=== PATIENT | female | born 1985 | race Caucasian/White ===

== ENCOUNTER 2016-08-27 17:13 | Inpatient (IN) ==
[2016-08-27] MEDS ORDERED: Ondansetron 4 MG/2 ML VIAL IV ONE (18:23)
--- NOTE | 2016-08-27 18:38 | Emergency Department Note ---
Disposition Clinical Impression: Fecal impaction of colon Disposition: Home, Self-Care Condition: Fair Referrals: NO,PCP [Primary Care Provider] - Forms: Work/School Release, ED Satisfaction Letter General Adult HPI - General Chief complaint: ED Abdominal Pain Stated complaint: Constipation Time Seen by Provider: 08/27/16 17:41 Source: patient, family Limitations: no limitations Nursing Notes Reviewed: Yes Vital Signs Reviewed: Yes - History of Present Illness Pain Scale: 10 - Related Data Home Medications Medication Instructions Recorded Confirmed Alprazolam [Xanax 1 MG Tablet] 1 mg PO TID PRN 08/27/16 08/27/16 Sertraline [Zoloft] 50 mg PO DAILY 08/27/16 08/27/16 Allergies Allergy/AdvReac Type Severity Reaction Status Date / Time No Known Allergies Allergy Verified 01/28/16 22:25 Past Medical History - Past Medical History Medical history: Reports: other Psychiatric history: Reports: anxiety, depression SOCK IRONER history: Reports: no SOCK IRONER history - Social History Smoking Status: Current every day smoker Smokeless Tobacco Status: No Alcohol use: Reports: none Drug use: Reports: none Physical Exam - General Limitations: no limitations General appearance: alert, in no apparent distress Course Vital Signs Temperature 98.1 F 08/27/16 17:15 Pulse Rate 109 08/27/16 17:15 Respiratory Rate 18 08/27/16 17:15 Blood Pressure 127/92 08/27/16 17:15 O2 Sat by Pulse Oximetry 97 08/27/16 17:15 Temperature 98.1 F 08/27/16 17:15 Pulse Rate 101 08/27/16 19:41 Respiratory Rate 16 08/27/16 19:41 Blood Pressure 117/94 08/27/16 19:41 O2 Sat by Pulse Oximetry 98 08/27/16 19:41 Oxygen Delivery Oxygen Delivery Room Air Medical Decision Making - MDM Narrative Medical decision making narrative: I examined this patient and my medical decision-making was reviewed with the FRENCH BINDER/PA/Advanced Practice Nurse/Resident Physician. I agree with the documented findings, disposition and treatment plan as described except to the extent set forth below. Patient was evaluated today by Dr. Adames and myself, I agree with her evaluation and management plan, supervised the care of the patient notes today. Patient has a history of megacolon. She will following up with anyone now she has a normal bowel movement over a year. Thinks some diarrhea but also constipated she is also on some urinary symptoms or history of UTI in the past. Nonsurgical abdomen here. 2200 hrs. to patient allowed to urinate so we did a serum which was negative she is back from CT waiting on the read. We also sent her urine down now to determine if she has any infection. Her urine does appear very dark here. Abdomen/Pelvis CT 08/27/16 20:00 IMPRESSION: There is a marked rectosigmoid fecal impaction as above. The wall of the rectum is diffusely thickened with mild perirectal fat stranding. Stercoral colitis must be considered. Air within the endometrial canal of uncertain etiology and significance. Is there history of recent gynecological examination? There are mildly enlarged bilateral inguinal and internal iliac lymph nodes. D/ / Esa De La O MD / Esa De La O MD Interpreting Provider: Esa De La O MD 2200 hrs.: CT is back with the size of this large amount of stool count fingers anyway we can remove this in the ER. She seen Dr. Villarreal in the past. We will call surgery see if we can bring her into the hospital for them to follow. Patient's in agreement. Still waiting on urinalysis. 2300 hrs.: Patient was discussed with on-call surgeon he said admit to hospitalist with surgery consult in. No further orders. Patient's in agreement with plan. 2330: hospitalist accepts for admission - Lab Data Result diagrams: 08/27/16 18:43 08/27/16 18:43 Lab Results 08/27/16 08/27/16 08/27/16 Range/Units 18:43 18:43 18:43 WBC 9.7 (4.3-11.1) K/mcL RBC 3.85 (3.82-4.97) M/mcL Hgb 10.7 L (11.5-15.4) g/dL Hct 32.9 L (35.3-44.9) % MCV 85.5 (83.0-100.0) fL MCH 27.8 L (28.0-33.3) pg MCHC 32.5 (31.6-35.5) g/dL RDW 13.0 (11.5-14.5) % Plt Count 425 H (140-400) K/mcL MPV 8.6 L (9.4-12.4) fL Immature Gran % 0.4 (0-4) % Seg Neutrophils % 73.4 % Lymphocytes % 11.2 % Monocytes % 14.8 % Eosinophils % 0.0 % Basophils % 0.2 % Neutrophils # 7.1 (1.6-8.9) K/mcL Lymphocytes # 1.1 (0.6-4.6) K/mcL Monocytes # 1.4 H (0.0-1.3) K/mcL Eosinophils # 0.0 (0.0-0.6) K/mcL Basophils # 0.0 (0.0-0.2) K/mcL Platelet Estimate Slight increase H (Normal) Sodium 135 L (136-145) mEq/L Potassium 3.4 L (3.5-4.5) mEq/L Chloride 98 (98-109) mEq/L Carbon Dioxide 23 (19-29) mEq/L BUN 8 (7-20) mg/dL Creatinine 0.75 (0.57-1.11) mg/dL Est GFR ( Amer) > 60 (> 60) Est GFR (Non-Af Amer) > 60 (> 60) BUN/Creatinine Ratio 11 (6-26) Glucose 126 H (70-99) mg/dL Calculated Osmolality 280 (280-300) Calcium 9.4 (8.6-10.8) mg/dL Total Bilirubin 0.4 (0.2-1.2) mg/dL AST 22 (5-34) Units/L ALT 8 (0-55) Units/L Alkaline Phosphatase 73 (38-126) Units/L Serum Total Protein 7.2 (6.0-8.3) g/dL Albumin 3.5 (3.5-5.0) g/dL Globulin 3.7 H (2.4-3.5) g/dL Albumin/Globulin Ratio 0.9 L (1.1-2.2) Lipase 4 L (8-78) Units/L Serum , Qual (Negative) Urine Color (Yellow) Urine Clarity (Clear) Urine pH (5.0-8.0) pH Units Ur Specific [place] (1.010-1.025) Urine Protein (Neg-Trace) mg/dL Urine Glucose (UA) (Normal) mg/dL Urine Ketones (Negative) mg/dL Urine Blood (Negative) Urine Nitrite (Negative) Urine Bilirubin (Negative) Urine Urobilinogen (Normal) mg/dL Ur Leukocyte Esterase (Negative) Urine Microscopic RBC (0-3) per hpf Urine Microscopic WBC (0-3) per hpf Ur Squamous Epith Cells (None-Few) per lpf Urine Bacteria (None-Few) per hpf Hyaline Casts (None-Few) per lpf Ur Culture Indicated? (NO) Urine Test (Negative) 08/27/16 08/27/16 08/27/16 Range/Units 18:43 21:57 21:57 WBC (4.3-11.1) K/mcL RBC (3.82-4.97) M/mcL Hgb (11.5-15.4) g/dL Hct (35.3-44.9) % MCV (83.0-100.0) fL MCH (28.0-33.3) pg MCHC (31.6-35.5) g/dL RDW (11.5-14.5) % Plt Count (140-400) K/mcL MPV (9.4-12.4) fL Immature Gran % (0-4) % Seg Neutrophils % % Lymphocytes % % Monocytes % % Eosinophils % % Basophils % % Neutrophils # (1.6-8.9) K/mcL Lymphocytes # (0.6-4.6) K/mcL Monocytes # (0.0-1.3) K/mcL Eosinophils # (0.0-0.6) K/mcL Basophils # (0.0-0.2) K/mcL Platelet Estimate (Normal) Sodium (136-145) mEq/L Potassium (3.5-4.5) mEq/L Chloride (98-109) mEq/L Carbon Dioxide (19-29) mEq/L BUN (7-20) mg/dL Creatinine (0.57-1.11) mg/dL Est GFR ( Amer) (> 60) Est GFR (Non-Af Amer) (> 60) BUN/Creatinine Ratio (6-26) Glucose (70-99) mg/dL Calculated Osmolality (280-300) Calcium (8.6-10.8) mg/dL Total Bilirubin (0.2-1.2) mg/dL AST (5-34) Units/L ALT (0-55) Units/L Alkaline Phosphatase (38-126) Units/L Serum Total Protein (6.0-8.3) g/dL Albumin (3.5-5.0) g/dL Globulin (2.4-3.5) g/dL Albumin/Globulin Ratio (1.1-2.2) Lipase (8-78) Units/L Serum , Qual Negative (Negative) Urine Color Red A (Yellow) Urine Clarity Turbid A (Clear) Urine pH 7.0 (5.0-8.0) pH Units Ur Specific [place] 1.021 (1.010-1.025) Urine Protein 100 H (Neg-Trace) mg/dL Urine Glucose (UA) Normal (Normal) mg/dL Urine Ketones 15 H (Negative) mg/dL Urine Blood Large H (Negative) Urine Nitrite Negative (Negative) Urine Bilirubin Moderate H (Negative) Urine Urobilinogen Normal (Normal) mg/dL Ur Leukocyte Esterase Large H (Negative) Urine Microscopic RBC TNTC H (0-3) per hpf Urine Microscopic WBC TNTC H (0-3) per hpf Ur Squamous Epith Cells Many H (None-Few) per lpf Urine Bacteria Moderate H (None-Few) per hpf Hyaline Casts Few (None-Few) per lpf Ur Culture Indicated? YES A (NO) Urine Test Negative (Negative)
[2016-08-27] MEDS: 0.9 % Sodium Chloride 1,000 ML IVC SCH (18:52)
[2016-08-27 19:08] LABS: Basophils % 0.2 %; Hematocrit 32.9 % (35.3-44.9); Hemoglobin 10.7 g/dL (11.5-15.4); Immature Granulocytes % 0.4 % (0-4); Lymphocytes # 1.1 K/mcL (0.6-4.6); Lymphocytes % 11.2 %; Mean Corpuscular HGB Conc 32.5 g/dL (31.6-35.5); Mean Corpuscular Hemoglobin 27.8 pg (28.0-33.3); Mean Corpuscular Volume 85.5 fL (83.0-100.0); Mean Platelet Volume 8.6 fL (9.4-12.4); Monocytes # 1.4 K/mcL (0.0-1.3); Monocytes % 14.8 %; Neutrophils # 7.1 K/mcL (1.6-8.9); Platelet Count 425 K/mcL (140-400); Red Blood Count 3.85 M/mcL (3.82-4.97); Segmented Neutrophils % 73.4 %
[2016-08-27 19:23] LABS: Alanine Aminotransferase 8 Units/L (0-55); Albumin 3.5 g/dL (3.5-5.0); Albumin/Globulin Ratio 0.9 (1.1-2.2); Alkaline Phosphatase 73 Units/L (38-126); Aspartate Amino Transferase 22 Units/L (5-34); BUN/Creatinine Ratio 11 (6-26); Bilirubin,Total 0.4 mg/dL (0.2-1.2); Blood Urea Nitrogen 8 mg/dL (7-20); Calcium 9.4 mg/dL (8.6-10.8); Carbon Dioxide 23 mEq/L (19-29); Chloride 98 mEq/L (98-109); Globulin 3.7 g/dL (2.4-3.5); Glucose 126 mg/dL (70-99); Osmolality,Calculated 280 (280-300); Potassium 3.4 mEq/L (3.5-4.5); Sodium 135 mEq/L (136-145); Total Protein 7.2 g/dL (6.0-8.3); eGFR For African Americans > 60 (> 60); eGFR For Non-African Americans > 60 (> 60)
[2016-08-27] MEDS ORDERED: Ketorolac 15 MG/ML VIAL IVP ONE (19:23)
--- NOTE | 2016-08-27 21:05 | Emergency Department Note ---
Disposition Clinical Impression: Fecal impaction of colon Disposition: Home, Self-Care Condition: Fair Abdominal Pain HPI - General Chief Complaint: ED Abdominal Pain Stated Complaint: Constipation Time Seen by Provider: 08/27/16 17:41 Source: patient, family Nursing Notes Reviewed: Yes Vital Signs Reviewed: Yes - History of Present Illness HPI Narrative: Patient is a 31-year-old female who presents to [facility] ED with a chief complaint of generalized abdominal pain. States she has not had a normal bowel movement in over a year. States the pain is intolerable at this time and she has nausea, no vomiting. She has a history of megacolon since she was 18 years old. Patient states she has had some diarrhea leaking around what she thinks is a large impaction. Patient has had gas. States she is scared to take MiraLAX She was told before that if it is full in the bottom that they do not want her to take it since it is just pushing it from the top. Patient is not on any current GI medications. States she had to be admitted to surgery in the past where they had to do a disimpaction in the OR. Denies any fevers or chills. No chest pain, shortness of breath. Pt Subjective Complaint: abdominal pain Onset (ago): month(s) Consistency: Worsening Location: diffuse Pain Severity: moderate Pain Scale: 8 Quality: cramping Radiation: none Migration to: no migration Improves with: nothing Worsens with: nothing Associated symptoms: Reports: nausea, constipation. Denies: vomiting, fever, chills Treatments prior to arrival: none - Related Data Home Medications Medication Instructions Recorded Confirmed Alprazolam [Xanax 1 MG Tablet] 1 mg PO TID PRN 08/27/16 08/27/16 Sertraline [Zoloft] 50 mg PO DAILY 08/27/16 08/27/16 Allergies Allergy/AdvReac Type Severity Reaction Status Date / Time No Known Allergies Allergy Verified 01/28/16 22:25 All systems ED: reviewed and negative except as stated. Abdominal Pain PMH - Past Medical History Medical history: Reports: other Female Surgical History: Reports: , other CHECK WEIGHER history: Reports: no CHECK WEIGHER history Psychiatric history: Reports: anxiety, depression - Social History Smoking status: Current every day smoker Alcohol use: Reports: none Drug use: Reports: none Physical Exam - General Limitations: no limitations General appearance: alert, in no apparent distress - Head Head exam: atraumatic, normocephalic, normal inspection - Eye Eye exam: Present: normal appearance, PERRL, EOMI - ENT ENT exam: normal exam, normal oropharynx, mucous membranes moist - Neck Neck exam: Present: normal inspection, full ROM, trachea midline - Chest Chest inspection: Present: normal inspection, symmetric chest wall rise - Respiratory Respiratory exam: Present: normal lung sounds bilaterally - Cardiovascular Cardiovascular exam: Present: regular rate, normal rhythm, normal heart sounds - Abdominal Exam Abdominal exam: Present: soft, tenderness, distention, hyperactive bowel sounds. Absent: guarding, rebound, rigidity Abdominal tenderness: Present: diffuse, moderate - Extremities Exam Extremities exam: Present: normal inspection, full ROM. Absent: tenderness, pedal edema - Back Exam Back exam: Present: normal inspection, full ROM. Absent: tenderness - Neurological Exam Neurological exam: Present: alert, oriented X3 - Psychiatric Psychiatric exam: Present: normal affect, normal mood - Skin Skin exam: Present: warm, dry, intact, normal color Course Course Narrative: Patient seen and examined. Generalized abdominal pain. History of megacolon. Labwork ordered in triage. We will add a CT abdomen and pelvis with IV and oral contrast. - Reevaluation(s) Reevaluation #1: Labwork unremarkable. Urine analysis does show what looks to be a urinary tract infection. Will give [address] shows a rectosigmoid impaction that is 13.2 x 13.3 x 29 cm. I spoke with surgery Dr. Arellano who states to have Dr. Galvez see this patient in consult tomorrow. Paging hospitalist for admission. Time: 23:10 Vital Signs Temperature 98.1 F 08/27/16 17:15 Pulse Rate 109 08/27/16 17:15 Respiratory Rate 18 08/27/16 17:15 Blood Pressure 127/92 08/27/16 17:15 O2 Sat by Pulse Oximetry 97 08/27/16 17:15 Temperature 98.1 F 08/27/16 17:15 Pulse Rate 101 08/27/16 19:41 Respiratory Rate 16 08/27/16 19:41 Blood Pressure 117/94 08/27/16 19:41 O2 Sat by Pulse Oximetry 98 08/27/16 19:41 Oxygen Delivery Oxygen Delivery Room Air Abdominal Pain - MDM Narrative Medical decision making narrative: I examined this patient and my medical decision-making was reviewed with the OPTICAL EFFECTS LAYOUT PERSON/PA/Advanced Practice Nurse/Resident Physician. I agree with the documented findings, disposition and treatment plan as described except to the extent set forth below. Patient was seen by Dr. Zafar and myself, I agree with her evaluation and management plan, supervise care the patient outstay. Patient having lower abdominal pain and constipation. She said a history of megacolon in the past. She had to be surgically disimpacted. She presents today with same symptoms and also burning with urination. Today she shows impaction and also has no signs of obstruction. She also has UTI. We spoke with surgery who is agreeing to have her admitted through the hospitalist service and then were treating her UTI and admission. Patient's in agreement with this plan. - Medical Records Medical records reviewed: Yes I reviewed the patient's medical records. - Lab Data Lab results reviewed: Yes I reviewed the patient's lab results. Result diagrams: 08/27/16 18:43 08/27/16 18:43 Lab Results 08/27/16 08/27/16 08/27/16 Range/Units 18:43 18:43 18:43 WBC 9.7 (4.3-11.1) K/mcL RBC 3.85 (3.82-4.97) M/mcL Hgb 10.7 L (11.5-15.4) g/dL Hct 32.9 L (35.3-44.9) % MCV 85.5 (83.0-100.0) fL MCH 27.8 L (28.0-33.3) pg MCHC 32.5 (31.6-35.5) g/dL RDW 13.0 (11.5-14.5) % Plt Count 425 H (140-400) K/mcL MPV 8.6 L (9.4-12.4) fL Immature Gran % 0.4 (0-4) % Seg Neutrophils % 73.4 % Lymphocytes % 11.2 % Monocytes % 14.8 % Eosinophils % 0.0 % Basophils % 0.2 % Neutrophils # 7.1 (1.6-8.9) K/mcL Lymphocytes # 1.1 (0.6-4.6) K/mcL Monocytes # 1.4 H (0.0-1.3) K/mcL Eosinophils # 0.0 (0.0-0.6) K/mcL Basophils # 0.0 (0.0-0.2) K/mcL Platelet Estimate Slight increase H (Normal) Sodium 135 L (136-145) mEq/L Potassium 3.4 L (3.5-4.5) mEq/L Chloride 98 (98-109) mEq/L Carbon Dioxide 23 (19-29) mEq/L BUN 8 (7-20) mg/dL Creatinine 0.75 (0.57-1.11) mg/dL Est GFR ( Amer) > 60 (> 60) Est GFR (Non-Af Amer) > 60 (> 60) BUN/Creatinine Ratio 11 (6-26) Glucose 126 H (70-99) mg/dL Calculated Osmolality 280 (280-300) Calcium 9.4 (8.6-10.8) mg/dL Total Bilirubin 0.4 (0.2-1.2) mg/dL AST 22 (5-34) Units/L ALT 8 (0-55) Units/L Alkaline Phosphatase 73 (38-126) Units/L Serum Total Protein 7.2 (6.0-8.3) g/dL Albumin 3.5 (3.5-5.0) g/dL Globulin 3.7 H (2.4-3.5) g/dL Albumin/Globulin Ratio 0.9 L (1.1-2.2) Lipase 4 L (8-78) Units/L Serum , Qual (Negative) Urine Color (Yellow) Urine Clarity (Clear) Urine pH (5.0-8.0) pH Units Ur Specific [place] (1.010-1.025) Urine Protein (Neg-Trace) mg/dL Urine Glucose (UA) (Normal) mg/dL Urine Ketones (Negative) mg/dL Urine Blood (Negative) Urine Nitrite (Negative) Urine Bilirubin (Negative) Urine Urobilinogen (Normal) mg/dL Ur Leukocyte Esterase (Negative) Urine Microscopic RBC (0-3) per hpf Urine Microscopic WBC (0-3) per hpf Ur Squamous Epith Cells (None-Few) per lpf Urine Bacteria (None-Few) per hpf Hyaline Casts (None-Few) per lpf Ur Culture Indicated? (NO) Urine Test (Negative) 04/06/17 04/06/17 04/06/17 Range/Units 18:43 21:57 21:57 WBC (4.3-11.1) K/mcL RBC (3.82-4.97) M/mcL Hgb (11.5-15.4) g/dL Hct (35.3-44.9) % MCV (83.0-100.0) fL MCH (28.0-33.3) pg MCHC (31.6-35.5) g/dL RDW (11.5-14.5) % Plt Count (140-400) K/mcL MPV (9.4-12.4) fL Immature Gran % (0-4) % Seg Neutrophils % % Lymphocytes % % Monocytes % % Eosinophils % % Basophils % % Neutrophils # (1.6-8.9) K/mcL Lymphocytes # (0.6-4.6) K/mcL Monocytes # (0.0-1.3) K/mcL Eosinophils # (0.0-0.6) K/mcL Basophils # (0.0-0.2) K/mcL Platelet Estimate (Normal) Sodium (136-145) mEq/L Potassium (3.5-4.5) mEq/L Chloride (98-109) mEq/L Carbon Dioxide (19-29) mEq/L BUN (7-20) mg/dL Creatinine (0.57-1.11) mg/dL Est GFR ( Amer) (> 60) Est GFR (Non-Af Amer) (> 60) BUN/Creatinine Ratio (6-26) Glucose (70-99) mg/dL Calculated Osmolality (280-300) Calcium (8.6-10.8) mg/dL Total Bilirubin (0.2-1.2) mg/dL AST (5-34) Units/L ALT (0-55) Units/L Alkaline Phosphatase (38-126) Units/L Serum Total Protein (6.0-8.3) g/dL Albumin (3.5-5.0) g/dL Globulin (2.4-3.5) g/dL Albumin/Globulin Ratio (1.1-2.2) Lipase (8-78) Units/L Serum , Qual Negative (Negative) Urine Color Red A (Yellow) Urine Clarity Turbid A (Clear) Urine pH 7.0 (5.0-8.0) pH Units Ur Specific [place] 1.021 (1.010-1.025) Urine Protein 100 H (Neg-Trace) mg/dL Urine Glucose (UA) Normal (Normal) mg/dL Urine Ketones 15 H (Negative) mg/dL Urine Blood Large H (Negative) Urine Nitrite Negative (Negative) Urine Bilirubin Moderate H (Negative) Urine Urobilinogen Normal (Normal) mg/dL Ur Leukocyte Esterase Large H (Negative) Urine Microscopic RBC TNTC H (0-3) per hpf Urine Microscopic WBC TNTC H (0-3) per hpf Ur Squamous Epith Cells Many H (None-Few) per lpf Urine Bacteria Moderate H (None-Few) per hpf Hyaline Casts Few (None-Few) per lpf Ur Culture Indicated? YES A (NO) Urine Test Negative (Negative) - Radiology Data Radiology results reviewed: Yes I reviewed the patient's radiology results. Abdomen/Pelvis CT 08/27/16 20:00 IMPRESSION: There is a marked rectosigmoid fecal impaction as above. The wall of the rectum is diffusely thickened with mild perirectal fat stranding. Stercoral colitis must be considered. Air within the endometrial canal of uncertain etiology and significance. Is there history of recent gynecological examination? There are mildly enlarged bilateral inguinal and internal iliac lymph nodes. D/ / Esa De La O MD / Esa De La O MD Interpreting Provider: Esa De La O MD
[2016-08-27 22:06] LABS: Bilirubin,Urine Moderate (Negative); Blood,Urine Large (Negative); Clarity,Urine Turbid (Clear); Color,Urine Red (Yellow); Glucose,Urine (UA) Normal (Normal); Ketones,Urine 15 mg/dL (Negative); Leukocyte Esterase,Urine Large (Negative); Nitrite,Urine Negative (Negative); Protein,Urine 100 mg/dL (Neg-Trace); Specific Gravity,Urine 1.021 (1.010-1.025); Urobilinogen,Urine Normal (Normal)
[2016-08-27 22:08] LABS: Bacteria,Urine Moderate per hpf (None-Few); Hyaline Casts,Urine Few per lpf (None-Few); RBC,Urine TNTC per hpf (0-3); Squamous Epithelial Cell,Urine Many per lpf (None-Few); WBC,Urine TNTC per hpf (0-3)
--- NOTE | 2016-08-28 00:33 | Emergency Department Note ---
Disposition Clinical Impression: Fecal impaction of colon Disposition: Admitted As Inpatient Condition: Fair Referrals: NO,PCP [Primary Care Provider] - Forms: Work/School Release, ED Satisfaction Letter Time of Disposition: 00:32 Abdominal Pain HPI - General Chief Complaint: ED Abdominal Pain Stated Complaint: Constipation Time Seen by Provider: 08/27/16 17:41 Source: patient, family - History of Present Illness Pt Subjective Complaint: abdominal pain Location: diffuse Pain Severity: moderate Pain Scale: 8 Quality: cramping Migration to: no migration Improves with: nothing Worsens with: nothing Associated symptoms: Reports: nausea, constipation. Denies: vomiting, fever, chills - Related Data Home Medications Medication Instructions Recorded Confirmed Alprazolam [Xanax 1 MG Tablet] 1 mg PO TID PRN 08/27/16 08/27/16 Sertraline [Zoloft] 50 mg PO DAILY 08/27/16 08/27/16 Allergies Allergy/AdvReac Type Severity Reaction Status Date / Time No Known Allergies Allergy Verified 01/28/16 22:25 Abdominal Pain PMH - Past Medical History Medical history: Reports: other Female Surgical History: Reports: , other CHILD CARE DEVELOPMENT SPECIALIST history: Reports: no CHILD CARE DEVELOPMENT SPECIALIST history Psychiatric history: Reports: anxiety, depression - Social History Smoking status: Current every day smoker Alcohol use: Reports: none Drug use: Reports: none Physical Exam - General Limitations: no limitations General appearance: alert, in no apparent distress Course - Reevaluation(s) Reevaluation #1: I spoke with surgeon Dr. Arellano who states he will have Dr. Galvez consult on this patient tomorrow. No further antibiotic recommendations at this time. I spoke with hospitalist Dr. Fuentes who has accepted patient for admission. Time: 00:33 Vital Signs Temperature 98.1 F 08/27/16 17:15 Pulse Rate 109 08/27/16 17:15 Respiratory Rate 18 08/27/16 17:15 Blood Pressure 127/92 08/27/16 17:15 O2 Sat by Pulse Oximetry 97 08/27/16 17:15 Temperature 98.1 F 08/27/16 17:15 Pulse Rate 101 08/27/16 19:41 Respiratory Rate 16 08/27/16 19:41 Blood Pressure 117/94 08/27/16 19:41 O2 Sat by Pulse Oximetry 98 08/27/16 19:41 Oxygen Delivery Oxygen Delivery Room Air Abdominal Pain - Lab Data Result diagrams: 08/27/16 18:43 08/27/16 18:43 Lab Results 08/27/16 08/27/16 08/27/16 Range/Units 18:43 18:43 18:43 WBC 9.7 (4.3-11.1) K/mcL RBC 3.85 (3.82-4.97) M/mcL Hgb 10.7 L (11.5-15.4) g/dL Hct 32.9 L (35.3-44.9) % MCV 85.5 (83.0-100.0) fL MCH 27.8 L (28.0-33.3) pg MCHC 32.5 (31.6-35.5) g/dL RDW 13.0 (11.5-14.5) % Plt Count 425 H (140-400) K/mcL MPV 8.6 L (9.4-12.4) fL Immature Gran % 0.4 (0-4) % Seg Neutrophils % 73.4 % Lymphocytes % 11.2 % Monocytes % 14.8 % Eosinophils % 0.0 % Basophils % 0.2 % Neutrophils # 7.1 (1.6-8.9) K/mcL Lymphocytes # 1.1 (0.6-4.6) K/mcL Monocytes # 1.4 H (0.0-1.3) K/mcL Eosinophils # 0.0 (0.0-0.6) K/mcL Basophils # 0.0 (0.0-0.2) K/mcL Platelet Estimate Slight increase H (Normal) Sodium 135 L (136-145) mEq/L Potassium 3.4 L (3.5-4.5) mEq/L Chloride 98 (98-109) mEq/L Carbon Dioxide 23 (19-29) mEq/L BUN 8 (7-20) mg/dL Creatinine 0.75 (0.57-1.11) mg/dL Est GFR ( Amer) > 60 (> 60) Est GFR (Non-Af Amer) > 60 (> 60) BUN/Creatinine Ratio 11 (6-26) Glucose 126 H (70-99) mg/dL Calculated Osmolality 280 (280-300) Calcium 9.4 (8.6-10.8) mg/dL Total Bilirubin 0.4 (0.2-1.2) mg/dL AST 22 (5-34) Units/L ALT 8 (0-55) Units/L Alkaline Phosphatase 73 (38-126) Units/L Serum Total Protein 7.2 (6.0-8.3) g/dL Albumin 3.5 (3.5-5.0) g/dL Globulin 3.7 H (2.4-3.5) g/dL Albumin/Globulin Ratio 0.9 L (1.1-2.2) Lipase 4 L (8-78) Units/L Serum , Qual (Negative) Urine Color (Yellow) Urine Clarity (Clear) Urine pH (5.0-8.0) pH Units Ur Specific [place] (1.010-1.025) Urine Protein (Neg-Trace) mg/dL Urine Glucose (UA) (Normal) mg/dL Urine Ketones (Negative) mg/dL Urine Blood (Negative) Urine Nitrite (Negative) Urine Bilirubin (Negative) Urine Urobilinogen (Normal) mg/dL Ur Leukocyte Esterase (Negative) Urine Microscopic RBC (0-3) per hpf Urine Microscopic WBC (0-3) per hpf Ur Squamous Epith Cells (None-Few) per lpf Urine Bacteria (None-Few) per hpf Hyaline Casts (None-Few) per lpf Ur Culture Indicated? (NO) Urine Test (Negative) 08/27/16 08/27/16 08/27/16 Range/Units 18:43 21:57 21:57 WBC (4.3-11.1) K/mcL RBC (3.82-4.97) M/mcL Hgb (11.5-15.4) g/dL Hct (35.3-44.9) % MCV (83.0-100.0) fL MCH (28.0-33.3) pg MCHC (31.6-35.5) g/dL RDW (11.5-14.5) % Plt Count (140-400) K/mcL MPV (9.4-12.4) fL Immature Gran % (0-4) % Seg Neutrophils % % Lymphocytes % % Monocytes % % Eosinophils % % Basophils % % Neutrophils # (1.6-8.9) K/mcL Lymphocytes # (0.6-4.6) K/mcL Monocytes # (0.0-1.3) K/mcL Eosinophils # (0.0-0.6) K/mcL Basophils # (0.0-0.2) K/mcL Platelet Estimate (Normal) Sodium (136-145) mEq/L Potassium (3.5-4.5) mEq/L Chloride (98-109) mEq/L Carbon Dioxide (19-29) mEq/L BUN (7-20) mg/dL Creatinine (0.57-1.11) mg/dL Est GFR ( Amer) (> 60) Est GFR (Non-Af Amer) (> 60) BUN/Creatinine Ratio (6-26) Glucose (70-99) mg/dL Calculated Osmolality (280-300) Calcium (8.6-10.8) mg/dL Total Bilirubin (0.2-1.2) mg/dL AST (5-34) Units/L ALT (0-55) Units/L Alkaline Phosphatase (38-126) Units/L Serum Total Protein (6.0-8.3) g/dL Albumin (3.5-5.0) g/dL Globulin (2.4-3.5) g/dL Albumin/Globulin Ratio (1.1-2.2) Lipase (8-78) Units/L Serum , Qual Negative (Negative) Urine Color Red A (Yellow) Urine Clarity Turbid A (Clear) Urine pH 7.0 (5.0-8.0) pH Units Ur Specific [place] 1.021 (1.010-1.025) Urine Protein 100 H (Neg-Trace) mg/dL Urine Glucose (UA) Normal (Normal) mg/dL Urine Ketones 15 H (Negative) mg/dL Urine Blood Large H (Negative) Urine Nitrite Negative (Negative) Urine Bilirubin Moderate H (Negative) Urine Urobilinogen Normal (Normal) mg/dL Ur Leukocyte Esterase Large H (Negative) Urine Microscopic RBC TNTC H (0-3) per hpf Urine Microscopic WBC TNTC H (0-3) per hpf Ur Squamous Epith Cells Many H (None-Few) per lpf Urine Bacteria Moderate H (None-Few) per hpf Hyaline Casts Few (None-Few) per lpf Ur Culture Indicated? YES A (NO) Urine Test Negative (Negative)
[2016-08-28] MEDS: ALPRAZolam 1 MG TABLET PO PRN ×2 (02:56→14:17)
[2016-08-28] MEDS: 0.9 % Sodium Chloride 1,000 ML IVC SCH ×4 (02:57→21:13)
[2016-08-28] MEDS ORDERED: Naloxone 0.4 MG/ML INJ IVP PRN ×2 (04:06→20:48)
[2016-08-28] MEDS ORDERED: 0.9 % Sodium Chloride 1,000 ML IVC SCH (04:15)
--- NOTE | 2016-08-28 04:16 | Internal Med History&Physical ---
Date of Encounter: 08/28/16 Time of Encounter: 02:00 Assessment and Plan (1) Fecal impaction of colon Current visit: Yes Status: Acute Patient has a history of megacolon. Pt was not using laxatives or stool softeners. CT scan shows marked rectosigmoid fecal impaction / stercoral colitis. Surgical consultation for disimpaction. Will need to resume stool softeners and laxatives. We will check TSH (2) UTI (urinary tract infection) Current visit: Yes Status: Acute Urine culture is pending. Emperic treatment with ceftriaxone. Bladder scan shows no significant urinary retention. Qualifiers: Urinary tract infection type: site unspecified Hematuria presence: without hematuria Qualified Code(s): N39.0 - Urinary tract infection, site not specified (3) Anxiety Current visit: Yes Status: Chronic Continue home medications (4) Abdominal pain Current visit: Yes Status: Acute Due to fecal impaction. Pain medications PRN. Qualifiers: Abdominal location: generalized Qualified Code(s): R10.84 - Generalized abdominal pain Internal Medicine - H&P: HPI Chief complaint: Abdominal pain; constipation Admitted From: Emergency Dept Plans for Post Hospital Care: Home History of present illness: Ms. Gracia is a 31 year old female With past medical history significant for megacolon, prior h/o fecal impaction that required disimpaction, in May 2014; anxiety / depression. She apparently was prescribed stool softeners and laxatives. She apparently did well, bowel movements twice a week. However she did not continue that regime for over a year. She apparently had no normal/ formed bowel movements, in over a year. She intermittently has been taking laxatives and had some loose stool leaking around. She was able to pass flatus. She presents to the emergency department with abdominal pain and abdominal distention. She has pain going on for several days but in the last 2- 3 days the pain has gotten worse. Pain is across the lower abdomen, severe in intensity, nonradiating, associated with nausea but no vomiting. She apparently was in ters when she came to the emergency department. Pain was relieved with medications in the ER. She reports discolored urine, but denies dysuria or hematuria. She has trouble passing urine, and has to lean forwards to be able to pass urine. She denies chest pain, shortness of breath, cough, expectoration, fever, chills. She was evaluated in the emergency department and had a CT scan of the abdomen and pelvis, which showed fecal impaction. Urinalysis was abnormal with possible UTI. ER physician discussed with surgeon Dr. Arellano, who recommended admission to the hospitalist service. Past Med Surg Social Fam HX - Past Medical History Medical history: other Psychiatric history: anxiety, depression - Social History Smoking Status: Current every day smoker Packs per day: 1/2 Smokeless Tobacco Status: No Alcohol use: none Drug use: none - Additional Family History Additional family history: Family Hx reviewed and is non-contributory to current admission Internal Medicine - H&P: Meds Alprazolam [Xanax 1 MG Tablet] 1 mg PO TID PRN 08/27/16 [History] Sertraline [Zoloft] 50 mg PO DAILY 08/27/16 [History] Allergies No Known Allergies Allergy (Verified 01/28/16 22:25) All Systems PM: A 10-system review of systems was performed and is negative for pertinent findings except as documented above in the HPI. - Constitutional Vitals: Temp Pulse Resp BP Pulse Ox 98.1 F 112 18 128/74 97 08/28/16 01:03 08/28/16 01:03 08/28/16 01:03 08/28/16 01:03 08/28/16 01:03 Exam: General: In mild - moderate distress at the time of my evaluation HEENT: Oral mucosa is dry. conjunctival palor present. No scleral icterus Neck: No obvious neck swellings Lungs: Clear to auscultation Cardiac: Regular rate and rhythm. No significant murmurs Abdomen: Distended. Diffuse abdominal tenderness. Bowel sounds present. Genitourinary: No rivera catheter Neurological: Alert and oriented. No gross localizing deficits Psych: Not aggressive or agitated Extremities: no significant leg edema Skin: No generalized rash Internal Med - H&P Results - Labs CBC & Chem 7: 08/27/16 18:43 08/27/16 18:43 - Impressions ITS Impressions Abdomen/Pelvis CT 08/27/16 20:00 IMPRESSION: There is a marked rectosigmoid fecal impaction as above. The wall of the rectum is diffusely thickened with mild perirectal fat stranding. Stercoral colitis must be considered. Air within the endometrial canal of uncertain etiology and significance. Is there history of recent gynecological examination? There are mildly enlarged bilateral inguinal and internal iliac lymph nodes. D/ / Esa De La O MD / Esa De La O MD Interpreting Provider: Esa De La O MD
[2016-08-28 04:42] LABS: Basophils % 0.1 %; Eosinophils % 0.3 %; Hematocrit 29.3 % (35.3-44.9); Hemoglobin 9.6 g/dL (11.5-15.4); Immature Granulocytes % 0.4 % (0-4); Lymphocytes % 9.8 %; Mean Corpuscular HGB Conc 32.8 g/dL (31.6-35.5); Mean Corpuscular Hemoglobin 28.5 pg (28.0-33.3); Mean Corpuscular Volume 86.9 fL (83.0-100.0); Mean Platelet Volume 8.5 fL (9.4-12.4); Monocytes # 1.5 K/mcL (0.0-1.3); Monocytes % 14.8 %; Neutrophils # 7.3 K/mcL (1.6-8.9); Platelet Count 348 K/mcL (140-400); Red Blood Count 3.37 M/mcL (3.82-4.97); Red Cell Distribution Width 13.1 % (11.5-14.5); Segmented Neutrophils % 74.6 %
[2016-08-28 04:56] LABS: BUN/Creatinine Ratio 9 (6-26); Blood Urea Nitrogen 6 mg/dL (7-20); Calcium 8.5 mg/dL (8.6-10.8); Carbon Dioxide 21 mEq/L (19-29); Chloride 101 mEq/L (98-109); Glucose 103 mg/dL (70-99); Magnesium 1.5 mg/dL (1.6-2.6); Osmolality,Calculated 276 (280-300); Potassium 3.4 mEq/L (3.5-4.5); Sodium 134 mEq/L (136-145); eGFR For African Americans > 60 (> 60); eGFR For Non-African Americans > 60 (> 60)
[2016-08-28 05:18] LABS: Platelet Estimate Normal (Normal)
[2016-08-28 05:22] LABS: Thyroid Stimulating Hormone 2.885 mcIU/mL (0.350-4.840)
[2016-08-28] MEDS: *HR* Morphine 2 MG/ML SYRINGE IVP PRN ×3 (05:58→21:14)
--- NOTE | 2016-08-28 16:39 | General Surgery Consult Note ---
Date of Encounter: 08/28/16 Time of Encounter: 16:00 Assessment and Plan (1) Fecal impaction of colon Current Visit: Yes Status: Acute NPO IV fluids Discussed the risks, benefits, alternatives, expected outcomes of exploratory laparotomy with diverting colostomy with Dr. Arellano and the patient is in agreement to proceed- consent complete Supportive care/pain control IS every 1 hour while awake am labs (2) Megacolon Current Visit: Yes Status: Acute NPO IV fluids Discussed the risks, benefits, alternatives, expected outcomes of exploratory laparotomy with diverting colostomy with Dr. Arellano and the patient is in agreement to proceed- consent complete Supportive care/pain control IS every 1 hour while awake am labs History of Present Illness Consult date: 08/28/16 Reason for consult: other (fecal impaction) Requesting physician: Rubi Adames History of present illness: Ms. Gracia is a very pleasant 31 year old female with a past medical history significant for chronic constipation, megacolon, anxiety and depression. She states that she did have a surgical disimpaction in 2014 at [facility] for similar symptoms. She was put on a bowel regimen but states that she has not followed the regimen as suggested. She states that she stopped taking her medications because she had given up after they didn't seem to be helping. She reports having bowel movements initially up to 2 times per week. Her symptoms have progressively worsened to the point that she was passing only liquid stool. She states that currently she is passing small pieces of solid stool. She is able to pass flatus. She has significant lower abdominal tenderness as well as rectal tenderness. Admit to nausea but denies any vomiting. Denies any fevers/ chills. Denies any shortness of breath of chest pains. States that it is very difficulty for her to urinate. Denies any urgency or dysuria. Past Med Surg Social Fam HX - Past Medical History Source: patient, old records reviewed Medical history: other (chronic constipation, megacolon) Psychiatric history: anxiety, depression - Past Surgical History Surgical History: other (, fecal disimpaction 2014) - Social History Smoking Status: Current every day smoker Packs per day: 1/2 Smokeless Tobacco Status: No Alcohol use: none Drug use: none Current living situation: Home - Independent Activity Level: Independent ambulation - Family History Mother Living Status: Still Living Father Living Status: Still Living Medications and Allergies Alprazolam [Xanax 1 MG Tablet] 1 mg PO TID PRN 08/27/16 [History] Sertraline [Zoloft] 50 mg PO DAILY 08/27/16 [History] Allergies No Known Allergies Allergy (Verified 01/28/16 22:25) Review of Systems All systems PM: reviewed and no additional remarkable complaints except as stated (in the HPI) All systems PM: A 10-system review of systems was performed and is negative for pertinent findings except as documented above in the HPI. General Surgery Exam Initial Vital Signs Temp Pulse Resp BP Pulse Ox 98.1 F 109 18 127/92 97 08/27/16 17:15 08/27/16 17:15 08/27/16 17:15 08/27/16 17:15 08/27/16 17:15 - General physical appearance well developed, well nourished, moderate pain - Eyes normal ocular movement - ENT normal mucosa, atraumatic, normocephalic - Neck trachea midline - Respiratory normal expansion, normal respiratory effort, clear to auscultation - Cardiovascular Cardiovascular exam: Present: RRR, 15, 16 - Abdomen Abdomen general surgery: Present: bowel sounds present, soft, distended, tender Abdominal Tenderness: Present: diffusely - Integumentary Integumentary general surgery: Present: warm and dry - Neurologic Present: CN 2-12 grossly intact - Psychiatric Psychiatric general surgery: Present: appropriate, oriented to person, oriented to place, oriented to time, speech is normal, memory intact Exam Initial Vital Signs Temp Pulse Resp BP Pulse Ox 98.1 F 109 18 127/92 97 08/27/16 17:15 08/27/16 17:15 08/27/16 17:15 08/27/16 17:15 08/27/16 17:15 Results - Labs 08/28/16 04:32 08/28/16 04:32 Abnormal lab results RBC 3.37 M/mcL (3.82-4.97) L 08/28/16 04:32 Hgb 9.6 g/dL (11.5-15.4) L 08/28/16 04:32 Hct 29.3 % (35.3-44.9) L 08/28/16 04:32 MPV 8.5 fL (9.4-12.4) L 08/28/16 04:32 Monocytes # 1.5 K/mcL (0.0-1.3) H 08/28/16 04:32 Sodium 134 mEq/L (136-145) L 08/28/16 04:32 Potassium 3.4 mEq/L (3.5-4.5) L 08/28/16 04:32 BUN 6 mg/dL (7-20) L 08/28/16 04:32 Glucose 103 mg/dL (70-99) H 08/28/16 04:32 POC Glucose 106 (58-89) H 08/28/16 05:36 Calculated Osmolality 276 (280-300) L 08/28/16 04:32 Calcium 8.5 mg/dL (8.6-10.8) L 08/28/16 04:32 Magnesium 1.5 mg/dL (1.6-2.6) L 08/28/16 04:32 Globulin 3.7 g/dL (2.4-3.5) H 08/27/16 18:43 Albumin/Globulin Ratio 0.9 (1.1-2.2) L 08/27/16 18:43 Lipase 4 Units/L (8-78) L 08/27/16 18:43 Urine Color Red (Yellow) A 08/27/16 21:57 Urine Clarity Turbid (Clear) A 08/27/16 21:57 Urine Protein 100 mg/dL (Neg-Trace) H 08/27/16 21:57 Urine Ketones 15 mg/dL (Negative) H 08/27/16 21:57 Urine Blood Large (Negative) H 08/27/16 21:57 Urine Bilirubin Moderate (Negative) H 08/27/16 21:57 Ur Leukocyte Esterase Large (Negative) H 08/27/16 21:57 Urine Microscopic RBC TNTC per hpf (0-3) H 08/27/16 21:57 Urine Microscopic WBC TNTC per hpf (0-3) H 08/27/16 21:57 Ur Squamous Epith Cells Many per lpf (None-Few) H 08/27/16 21:57 Urine Bacteria Moderate per hpf (None-Few) H 08/27/16 21:57 Ur Culture Indicated? YES (NO) A 08/27/16 21:57 All other labs normal. - Imaging CT scan - abdomen: report reviewed CT scan - pelvis: report reviewed Additional studies: Abdomen/Pelvis CT 08/27/16 20:00 IMPRESSION: There is a marked rectosigmoid fecal impaction as above. The wall of the rectum is diffusely thickened with mild perirectal fat stranding. Stercoral colitis must be considered. Air within the endometrial canal of uncertain etiology and significance. Is there history of recent gynecological examination? There are mildly enlarged bilateral inguinal and internal iliac lymph nodes. D/ / Esa De La O MD / Esa De La O MD Interpreting Provider: Esa De La O MD Consult Discharge Plan - Plan Referrals: NO,PCP [Primary Care Provider] - - Attending Attestation I examined this patient and my medical decision-making was reviewed with the TEST AND RESEARCH REACTOR OPERATOR/PA/Advanced Practice Nurse/Resident Physician. I agree with the documented findings, disposition and treatment plan as described except to the extent set forth below.
[2016-08-28] MEDS ORDERED: Albuterol 2.5 MG/3 ML NEBULIZER ONE (16:55)
[2016-08-28] MEDS ORDERED: Albuterol 2.5 MG/3 ML NEBULIZER IH ONE (16:56)
--- NOTE | 2016-08-28 16:59 | Anesthesia Evaluation PreOp ---
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 History: Denies Any Significant HX Other Medical History: Other (Anxiety/Depression) Anesthesia History: No Prior Anesthetic Complications : No Test: Negative Alcohol Use: none Drug use: none Medications and Allergies Alprazolam [Xanax 1 MG Tablet] 1 mg PO TID PRN 08/27/16 [History] Sertraline [Zoloft] 50 mg PO DAILY 08/27/16 [History] Allergies No Known Allergies Allergy (Verified 01/28/16 22:25) - Meds/Allergy Pre-op Review Medications Reviewed: Yes Allergies Reviewed: Yes Beta Blockers on Current Med List: No Anesthesia Results - Labs 08/28/16 04:32 08/28/16 04:32 Anesthesia Exam O2 Sat Height 1.6 m Height 1.6 m Weight 46.176 kg Weight 56.699 kg O2 Sat by Pulse Oximetry 93 O2 Sat by Pulse Oximetry 94 O2 Sat by Pulse Oximetry 98 O2 Sat by Pulse Oximetry 95 O2 Sat by Pulse Oximetry 97 O2 Sat by Pulse Oximetry 98 O2 Sat by Pulse Oximetry 97 Vital Signs Temp Pulse Resp BP Pulse Ox 98.1 F 109 18 127/92 97 08/27/16 17:15 08/27/16 17:15 08/27/16 17:15 08/27/16 17:15 08/27/16 17:15 Height: 5'3 Weight: 101 lbs NPO (# of Hours): MN Pain Scale: 1 - HEENT Pupil (Motor): Pupils equal, EOMI Mallampati: II Teeth: Normal Oral Opening: Greater than 3 - COMMERCIAL CONSTRUCTION SUPERINTENDENT LOC: Oriented COMMERCIAL CONSTRUCTION SUPERINTENDENT Motor: Normal RUE, Normal LUE, Normal RLE, Normal LLE, Normal Face COMMERCIAL CONSTRUCTION SUPERINTENDENT Sensory: Normal: RUE, LUE, RLE, LLE, Face - Cardiac Rhythm: Regular Murmur: None JVD: No Carotid Bruit: No - Pulmonary Breath Sounds: bilateral Clear Respiratory Effort: Symmetrical Anesthesia Assess/Plan ASA Score: 2, E Modified Brohman Scale for Level of Consciousness: Cooperative, oriented, and tranquil Anesthetic Plan: General Monitoring Plan: Standard Monitors Recovery Plan: PACU (Discussed GA, agrees to proceed)
[2016-08-28] MEDS ORDERED: Ondansetron 4 MG/2 ML VIAL ONE (17:08)
[2016-08-28] MEDS ORDERED: Dexamethasone 4 MG/ML VIAL ONE (17:08)
[2016-08-28] MEDS ORDERED: *HR* Propofol 200 MG/20 ML VIAL IVP ONE (17:08)
[2016-08-28] MEDS ORDERED: Lidocaine -MPF 2% 2 ML VIAL ONE (17:08)
[2016-08-28] MEDS ORDERED: *HR* FentaNYL (PF) 100 MCG/2 ML VIAL ONE (17:08)
[2016-08-28] MEDS ORDERED: *HR* Rocuronium Bromide 50 MG/5 ML VIAL ONE (17:08)
[2016-08-28] MEDS ORDERED: Lidocaine -MPF 4% 5 ML AMPUL ONE (17:15)
[2016-08-28] MEDS ORDERED: Neostigmine Methylsulfate 3 MG/3 ML SYRINGE ONE (17:15)
[2016-08-28] MEDS ORDERED: CefOXitin 2,000 MG VIAL IVPB ONE (17:28)
--- NOTE | 2016-08-28 17:29 | Internal Med Progress Note ---
Date of Encounter: 08/28/16 Time of Encounter: 15:00 - Assessment and plan (1) DVT prophylaxis Current Visit: Yes Status: Acute Assessment and plan: Start heparin subcutaneous postop. (2) Fecal impaction of colon Current Visit: Yes Status: Acute Assessment and plan: Gen. surgery consult for disimpaction in the OR. She has had this procedure done before. (3) UTI (urinary tract infection) Current Visit: Yes Status: Acute Assessment and plan: We will treat her with ceftriaxone. Follow up urine culture and sensitivities. Qualifiers: Urinary tract infection type: site unspecified Hematuria presence: without hematuria Qualified Code(s): N39.0 - Urinary tract infection, site not specified (4) Anxiety Current Visit: Yes Status: Chronic Assessment and plan: Continue with Xanax and Zoloft. (5) Abdominal pain Current Visit: Yes Status: Acute Assessment and plan: IV morphine for pain. Qualifiers: Abdominal location: generalized Qualified Code(s): R10.84 - Generalized abdominal pain (6) Megacolon Current Visit: Yes Status: Acute - Subjective Interval history: Patient reports mild abdominal pain and significant abdominal distention which the pain started several days ago, distention has been long-standing. She states that she has been having occasional small amount of diarrhea however her abdominal distention and pain has not been relieved. She had presented to the hospital and was found to have impacted megacolon. - Constitutional Vitals: Temp Pulse Resp BP Pulse Ox 98.6 F 90 16 107/70 93 08/28/16 15:06 08/28/16 15:06 08/28/16 15:06 08/28/16 15:06 08/28/16 15:06 General appearance: Present: A&O X 3 - Eye Eye exam: Present: PERRL, conjuntiva pink, sclera anicteric Pupils: Present: PERRL - Respiratory Respiratory exam: Present: CTAB. Absent: accessory muscle use, rales, rhonchi, wheezes - Cardiovascular Cardiovascular exam: Present: RRR, +S1, +S2. Absent: diastolic murmur, gallop, rubs, systolic murmur - GI/Abdominal GI/Abdominal exam: Present: distended, normal bowel sounds, soft, tenderness, no peritoneal signs. Absent: guarding, hernia - Extremities Exam Extremities exam: Present: warm, radial pulses palpable and symetrical. Absent : calf tenderness, cyanotic, pedal edema - Neurological Exam Neurological exam: Present: CN II-XII intact, oriented X3, no focal deficits. Absent: facial droop, speech deficit Internal Medicine: Result - Labs CBC & Chem 7: 08/28/16 04:32 08/28/16 04:32 Consult Discharge Plan - Plan Referrals: NO,PCP [Primary Care Provider] -
[2016-08-28] MEDS ORDERED: *HR* HYDROmorphone 2 MG/ML SYRINGE ONE ×2 (17:50→19:01)
[2016-08-28] MEDS ORDERED: *HR* Heparin 5,000 UNIT/ML VIAL SQ SCH (18:00)
[2016-08-28] MEDS ORDERED: *HR* Promethazine 25 MG/ML VIAL IVP PRN (18:06)
[2016-08-28] MEDS ORDERED: *HR* Phenylephrine 10 MG/ML VIAL ONE (18:09)
--- NOTE | 2016-08-28 19:03 | Operative Note ---
Date of procedure: 08/28/16 Pre-op diagnosis: fecal impaction Post-op diagnosis: same Procedure: Exploratory laparotomy with subtotal colectomy, appendectomy, cholecystectomy Anesthesia: GRISELDA Surgeon: Uzair Arellano Estimated blood loss (cc): 50 Specimen: Appendix, gallbladder, colon Condition: stable Disposition: floor Procedure in Detail: After informed consent, patient was taken to the operating room placed in supine position. She has a history of chronic constipation and a history of fecal impaction. Patient presented to the emergency department with an abnormally large rectum with a fecal impaction that was not amenable to digital evacuation. Therefore the abdomen was prepped and draped. Midline incision was made just above the umbilicus down to the level of the ASIS. Once the abdomen was opened, I was able to deliver the transverse colon into the field. The rectum was adherent along the posterior abdominal wall from the pelvic inlet all the way to the inferior tip of the spleen. This was brought out into the operative field as well. An area was identified on the sigmoid colon which was appropriate size to transect with the MAGI 75 mm stapler. Once done the mesentery was taken down with Harmonic scalpel. The abdomen was protected and a C-arm drape was used to evacuate approximately 15-20 pounds stool. Once it been completely evacuated approximately 10 additional inches of rectum were transected and removed. The splenic flexure was taken down and the associated blood vessels. Once there were transected then the middle colic artery and vein were taken. The hepatic flexure was taken down in the same manner. The right colon was transected just above the cecum. The cecum was rotated down to the rectum and anastomosis with a MAGI 75 mm stapler the common enterotomy was closed with a TA 60 stapler. The gallbladder was inflamed as well this was removed with a dome down technique. The cystic duct was secured with an 0 silk suture. The remaining appendix was removed from the cecum it was secured with no silk suture as well as 3-0 silk suture times 2. Once completed the abdomen was irrigated and suctioned dry the abdomen was protected with Seprafilm and then the abdominal wall was closed with a running looped PDS suture. Skin was closed debbie. She tolerated the procedure well and all instrument counts were correct in the case.
[2016-08-28] MEDS: *HR* HYDROmorphone (PF) 1 MG/ML SYRINGE IVP PRN ×4 (19:20→19:52)
--- NOTE | 2016-08-28 20:08 | Anesthesia Evaluation Post Op ---
Date of Encounter: 08/28/16 Time of Encounter: 20:08 - Vital Signs Vital Signs: Last Vital Signs Temp 97.2 F L 08/28/16 19:45 Pulse 103 08/28/16 19:55 Resp 16 08/28/16 19:55 BP 102/69 08/28/16 19:55 Pulse Ox 96 08/28/16 19:55 - Lungs Lungs: Clear Ascult./Percussion - Airway Airway: Non-obstructed - Cardiovascular Regular Rate - Mental Status Mental Status: Alert & Oriented, Answers Appropriately - Pain Pain Scale: 5 - Nausea Vomiting Nausea Vomiting: Not Present - Hydration Hydration: NPO - Discharge PostOp Status: Transfer Patient to floor
[2016-08-29] MEDS: *HR* Morphine 2 MG/ML SYRINGE IVP PRN ×5 (00:09→09:16)
[2016-08-29 03:35] LABS: Basophils % 0.1 %; Hematocrit 27.7 % (35.3-44.9); Hemoglobin 8.9 g/dL (11.5-15.4); Immature Granulocytes % 0.3 % (0-4); Lymphocytes # 0.4 K/mcL (0.6-4.6); Lymphocytes % 5.4 %; Mean Corpuscular HGB Conc 32.1 g/dL (31.6-35.5); Mean Corpuscular Hemoglobin 28.5 pg (28.0-33.3); Mean Corpuscular Volume 88.8 fL (83.0-100.0); Monocytes % 13.7 %; Platelet Count 329 K/mcL (140-400); Red Blood Count 3.12 M/mcL (3.82-4.97); Red Cell Distribution Width 13.2 % (11.5-14.5); Segmented Neutrophils % 80.5 %
[2016-08-29 03:51] LABS: Carbon Dioxide 19 mEq/L (19-29); Chloride 106 mEq/L (98-109); Potassium 3.7 mEq/L (3.5-4.5); Sodium 138 mEq/L (136-145)
[2016-08-29 03:52] LABS: BUN/Creatinine Ratio 8 (6-26); Glucose 115 mg/dL (70-99); Osmolality,Calculated 284 (280-300); eGFR For African Americans > 60 (> 60); eGFR For Non-African Americans > 60 (> 60)
[2016-08-29 03:57] LABS: Blood Urea Nitrogen 5 mg/dL (7-20)
[2016-08-29 04:13] LABS: Platelet Estimate Normal (Normal)
[2016-08-29] MEDS: 0.9 % Sodium Chloride 1,000 ML IVC SCH ×4 (04:16→22:31)
[2016-08-29] MEDS ORDERED: *HR* HYDROmorphone (PF) 1 MG/ML SYRINGE IVP ONE (04:58)
[2016-08-29] MEDS: *HR* Heparin 5,000 UNIT/ML VIAL SQ SCH ×2 (05:13→17:43)
[2016-08-29] MEDS: Ondansetron 4 MG/2 ML VIAL IVP PRN (05:13)
[2016-08-29] MEDS: ALPRAZolam 1 MG TABLET PO PRN ×2 (06:41→17:43)
[2016-08-29] MEDS: *HR* HYDROmorphone (PF) 1 MG/ML SYRINGE IVP PRN ×6 (11:32→22:30)
[2016-08-29 11:51] LABS: Magnesium 1.3 mg/dL (1.6-2.6); Phosphorous 3.7 mg/dL (2.3-4.7)
[2016-08-29] MEDS ORDERED: Magnesium Sulfate 2 GM in D5% in Water 100 ML IVPB ONE (16:21)
[2016-08-29 16:55] LABS: Hematocrit 28.9 % (35.3-44.9); Hemoglobin 9.4 g/dL (11.5-15.4)
--- NOTE | 2016-08-29 17:02 | General Surgery Progress Note ---
Date of Encounter: 08/29/16 Time of Encounter: 10:45 - Assessment and Plan (1) S/P colectomy Current Visit: Yes Status: Acute pod 1 STC with cecal/rectal anastomosis. appendectomy, cholecystectomy npo, continue ivf hydration increase pain control gi/dvt prophylaxis pt pale and anemic, will trend Hb await return bowel function (2) Fecal impaction of colon Current Visit: Yes Status: Resolved (3) Megacolon Current Visit: Yes Status: Resolved (4) Hypomagnesemia Current Visit: Yes Status: Acute replace, recheck tomorrow am Subjective Patient reports: feels better, still having pain, no flatus, no bowel movement, afebrile Objective Vital Signs - Last 8 Hours Temp Pulse Resp BP Pulse Ox 08/29/16 15:30 98.4 F 77 14 113/74 97 08/29/16 11:12 98.5 F 90 14 106/70 96 Intake and Output 08/29/16 08/29/16 08/29/16 07:59 15:59 23:59 Intake Total 1309 / 1309 691 / 691 420 / 420 Output Total 350 / 350 0 / 0 500 / 500 Balance 959 / 959 691 / 691 -80 / -80 Intake: IV Fluids 1309 / 1309 691 / 691 420 / 420 0.9 % Sodium Chloride 1, 1309 / 1309 691 / 691 420 / 420 000 ML @ 125 mls/hr IVC . Q8H [facility] Rx#:[id number] Oral 0 / 0 0 / 0 Output: Urine 350 / 350 0 / 0 500 / 500 Other: Meal NPO Weight 46.2 kg Blood Glucose* 105 Patient Weight 08/29/16 23:59 Weight 46.2 kg - General physical appearance no distress, moderate pain - Eyes PERRL, normal ocular movement - ENT normal mucosa, normocephalic - Neck Neck exam: trachea midline - Respiratory normal expansion, clear to auscultation - Cardiovascular Cardiovascular exam: Present: RRR - Abdomen Abdomen: Present: soft, tender (appropriate post op tenderness). Absent: bowel sounds present - Integumentary no rash, no growths - Neurologic CN 2-12 grossly intact, normal coordination - Musculoskeletal normal posture - Psychiatric oriented to time, oriented to person, oriented to place, memory intact - Labs 08/29/16 03:10 08/29/16 03:10 Vital Signs Temp Pulse Resp BP Pulse Ox 08/29/16 15:30 98.4 F 77 14 113/74 97 08/29/16 11:12 98.5 F 90 14 106/70 96 08/29/16 07:19 98.8 F 86 14 106/69 95 08/29/16 07:10 95 08/29/16 04:00 98.9 F 107 14 112/68 95 08/29/16 00:12 98.4 F 94 14 100/59 96 08/28/16 23:00 98.5 F 96 16 100/63 96 08/28/16 21:49 98.4 F 99 14 103/65 95 08/28/16 21:15 98.4 F 94 14 104/67 95 08/28/16 20:45 98.4 F 97 14 102/66 95 08/28/16 20:15 97.0 F L 103 16 106/71 96 08/28/16 20:05 100 16 108/71 95 08/28/16 19:55 103 16 102/69 96 08/28/16 19:45 97.2 F L 99 16 103/65 97 08/28/16 19:35 97 18 98/66 98 08/28/16 19:25 96 16 106/63 99 08/28/16 19:15 97.8 F 100 12 97/62 100 Intake and Output 08/29/16 08/29/16 08/29/16 07:59 15:59 23:59 Intake Total 1309 / 1309 691 / 691 420 / 420 Output Total 350 / 350 0 / 0 500 / 500 Balance 959 / 959 691 / 691 -80 / -80 Intake: IV Fluids 1309 / 1309 691 / 691 420 / 420 0.9 % Sodium Chloride 1, 1309 / 1309 691 / 691 420 / 420 000 ML @ 125 mls/hr IVC . Q8H [facility] Rx#:[id number] Oral 0 / 0 0 / 0 Output: Urine 350 / 350 0 / 0 500 / 500 Other: Meal NPO Weight 46.2 kg Blood Glucose* 105 Patient Weight 08/29/16 23:59 Weight 46.2 kg Short CBC 08/29/16 Range/Units 03:10 WBC 7.4 (4.3-11.1) K/mcL Hgb 8.9 L (11.5-15.4) g/dL Hct 27.7 L (35.3-44.9) % Plt Count 329 (140-400) K/mcL Neutrophils # 6.0 (1.6-8.9) K/mcL BMP 08/29/16 Range/Units 03:10 Sodium 138 (136-145) mEq/L Potassium 3.7 (3.5-4.5) mEq/L Chloride 106 (98-109) mEq/L Carbon Dioxide 19 (19-29) mEq/L BUN 5 L (7-20) mg/dL Creatinine 0.60 (0.57-1.11) mg/dL Glucose 115 H (70-99) mg/dL Calcium 8.0 L (8.6-10.8) mg/dL - VTE Documentation of Mechanical Device: Intermittent pneumatic compression device Consult Discharge Plan - Plan Referrals: NO,PCP [Primary Care Provider] -
--- NOTE | 2016-08-29 17:35 | Internal Med Progress Note ---
Date of Encounter: 08/29/16 Time of Encounter: 14:00 - Assessment and plan (1) DVT prophylaxis Current Visit: Yes Status: Acute Assessment and plan: Start heparin subcutaneous postop. (2) Fecal impaction of colon Current Visit: Yes Status: Resolved Assessment and plan: Postoperative day one status post subtotal colectomy with cecal-rectal anastomosis and appendectomy and cholecystectomy. Continue pain control was IV Dilaudid. IV fluids. Nothing by mouth. Incentive spirometry. She is at high risk due to treatment with IV opiates. (3) UTI (urinary tract infection) Current Visit: Yes Status: Acute Assessment and plan: We will treat her with ceftriaxone. Follow up urine culture and sensitivities. Qualifiers: Urinary tract infection type: site unspecified Hematuria presence: without hematuria Qualified Code(s): N39.0 - Urinary tract infection, site not specified (4) Anxiety Current Visit: Yes Status: Chronic Assessment and plan: Continue with Xanax and Zoloft. (5) Abdominal pain Current Visit: Yes Status: Acute Qualifiers: Abdominal location: generalized Qualified Code(s): R10.84 - Generalized abdominal pain (6) Megacolon Current Visit: Yes Status: Resolved - Subjective Interval history: 08/29/2016: Patient is status post subtotal colectomy with cecal-rectal anastomosis. She reports right-sided abdominal pain, sharp and severe, improved with intravenous hydromorphone. 08/28/2016: Patient reports mild abdominal pain and significant abdominal distention which the pain started several days ago, distention has been long- standing. She states that she has been having occasional small amount of diarrhea however her abdominal distention and pain has not been relieved. She had presented to the hospital and was found to have impacted megacolon. - Constitutional Vitals: Temp Pulse Resp BP Pulse Ox 98.4 F 77 14 113/74 97 08/29/16 15:30 08/29/16 15:30 08/29/16 15:30 08/29/16 15:30 08/29/16 15:30 General appearance: Present: A&O X 3 - Respiratory Respiratory exam: Present: CTAB. Absent: accessory muscle use, rales, rhonchi, wheezes - Cardiovascular Cardiovascular exam: Present: RRR, +S1, +S2. Absent: diastolic murmur, gallop, rubs, systolic murmur - GI/Abdominal GI/Abdominal exam: Present: normal bowel sounds, soft, tenderness, no peritoneal signs. Absent: distended - Extremities Exam Extremities exam: Present: warm, radial pulses palpable and symetrical. Absent : calf tenderness, cyanotic, pedal edema - Skin Skin exam: Present: dry, intact Internal Medicine: Result - Labs CBC & Chem 7: 08/29/16 16:40 08/29/16 03:10 Labs: Short CBC 08/29/16 08/29/16 Range/Units 03:10 16:40 WBC 7.4 (4.3-11.1) K/mcL Hgb 8.9 L 9.4 L (11.5-15.4) g/dL Hct 27.7 L 28.9 L (35.3-44.9) % Plt Count 329 (140-400) K/mcL Neutrophils # 6.0 (1.6-8.9) K/mcL BMP 08/29/16 03:10 Sodium 138 Potassium 3.7 Chloride 106 Carbon Dioxide 19 BUN 5 L Creatinine 0.60 Glucose 115 H Calcium 8.0 L - VTE Documentation of Mechanical Device: Intermittent pneumatic compression device Consult Discharge Plan - Plan Referrals: NO,PCP [Primary Care Provider] -
[2016-08-29] MEDS: Pantoprazole 40 MG VIAL IVP SCH (17:42)
[2016-08-30] MEDS: *HR* HYDROmorphone (PF) 1 MG/ML SYRINGE IVP PRN ×12 (00:25→23:17)
[2016-08-30 05:14] LABS: Basophils % 0.1 %; Eosinophils % 0.1 %; Hematocrit 26.5 % (35.3-44.9); Hemoglobin 8.2 g/dL (11.5-15.4); Immature Granulocytes % 0.3 % (0-4); Lymphocytes # 1.1 K/mcL (0.6-4.6); Lymphocytes % 15.4 %; Mean Corpuscular HGB Conc 30.9 g/dL (31.6-35.5); Mean Corpuscular Hemoglobin 27.6 pg (28.0-33.3); Mean Corpuscular Volume 89.2 fL (83.0-100.0); Mean Platelet Volume 8.9 fL (9.4-12.4); Monocytes # 0.9 K/mcL (0.0-1.3); Monocytes % 13.1 %; Neutrophils # 4.9 K/mcL (1.6-8.9); Platelet Count 343 K/mcL (140-400); Red Blood Count 2.97 M/mcL (3.82-4.97); Red Cell Distribution Width 13.2 % (11.5-14.5)
[2016-08-30] MEDS: *HR* Heparin 5,000 UNIT/ML VIAL SQ SCH ×2 (05:29→17:44)
[2016-08-30 05:32] LABS: BUN/Creatinine Ratio 5 (6-26); Blood Urea Nitrogen 3 mg/dL (7-20); Carbon Dioxide 20 mEq/L (19-29); Chloride 106 mEq/L (98-109); Glucose 84 mg/dL (70-99); Osmolality,Calculated 280 (280-300); Potassium 3.4 mEq/L (3.5-4.5); Sodium 137 mEq/L (136-145); eGFR For African Americans > 60 (> 60); eGFR For Non-African Americans > 60 (> 60)
[2016-08-30] MEDS: 0.9 % Sodium Chloride 1,000 ML IVC SCH (06:50)
[2016-08-30] MEDS: Pantoprazole 40 MG VIAL IVP SCH (07:51)
[2016-08-30] MEDS ORDERED: Magnesium Sulfate 2 GM in D5% in Water 100 ML IVPB ONE (08:12)
[2016-08-30] MEDS: D5% in 0.45% NACL w KCl 20 MEQ/1,000 ML MLS IVC SCH ×2 (08:41→23:17)
[2016-08-30] MEDS: ALPRAZolam 1 MG TABLET PO PRN (08:47)
--- NOTE | 2016-08-30 10:34 | General Surgery Progress Note ---
Date of Encounter: 08/30/16 Time of Encounter: 10:31 - Assessment and Plan (1) S/P colectomy Current Visit: Yes Status: Acute pod 2 STC with cecal/rectal anastomosis. appendectomy, cholecystectomy npo, continue ivf hydration, ok ice chips changed IVF to maintenance and decreased rate pain better controlled gi/dvt prophylaxis await return bowel function (2) Fecal impaction of colon Current Visit: Yes Status: Resolved (3) Megacolon Current Visit: Yes Status: Resolved (4) Hypomagnesemia Current Visit: Yes Status: Acute replace, recheck tomorrow am (5) Anemia Current Visit: Yes Status: Acute anemia likely chronic and dilutional, monitor, patient stable Qualifiers: Anemia type: unspecified type Qualified Code(s): D64.9 - Anemia, unspecified (6) Anxiety Current Visit: Yes Status: Chronic continue home meds (7) DVT prophylaxis Current Visit: Yes Status: Acute heparin sq Subjective Patient reports: no new complaints, feels better, still having pain, pain is less, no flatus, no bowel movement, afebrile Objective Vital Signs - Last 8 Hours Temp Pulse Resp BP Pulse Ox 08/30/16 06:55 96 08/30/16 06:29 98.9 F 97 16 121/81 96 08/30/16 04:42 98.7 F 93 14 122/81 95 Intake and Output 08/29/16 08/30/16 08/30/16 23:59 07:59 15:59 Intake Total 1204 / 1204 1000 / 1000 104 / 104 Output Total 500 / 500 1200 / 1200 Balance 704 / 704 -200 / -200 104 / 104 Intake: IV Fluids 1204 / 1204 1000 / 1000 104 / 104 0.9 % Sodium Chloride 1, 1000 / 1000 1000 / 1000 000 ML @ 125 mls/hr IVC . Q8H [facility] Rx#:[id number] Rocephin 1,000 MG In 100 / 100 Dextrose 5% (Minibag+) 100 ML 100 ML @ 200 mls/ hr IVPB Q24H [facility] Rx#: [id number] Magnesium Sulfate 2 GM In 104 / 104 104 / 104 Dextrose 5% 100 ML @ 100 mls/hr IVPB ONCE ONE Rx# :[id number] Oral 0 / 0 0 / 0 0 / 0 Output: Urine 500 / 500 1200 / 1200 Other: Meal NPO NPO Percent of Meal Consumed 0% Blood Glucose* 98 105 - General physical appearance well developed, well nourished, no distress - Eyes PERRL, normal ocular movement - ENT normal mucosa, normocephalic - Neck Neck exam: trachea midline - Respiratory normal expansion, clear to auscultation - Cardiovascular Cardiovascular exam: Present: RRR - Abdomen Abdomen: Present: bowel sounds present (faint), tender (appropriate post op tenderness) - Incision Incision: Present: clean and dry, intact - Integumentary no rash, no growths - Neurologic CN 2-12 grossly intact - Musculoskeletal normal posture - Psychiatric oriented to time, oriented to person, oriented to place, speech is normal, memory intact - Labs 08/30/16 04:20 08/30/16 04:20 Short CBC 08/30/16 08/29/16 Range/Units 04:20 16:40 WBC 7.0 (4.3-11.1) K/mcL Hgb 8.2 L 9.4 L (11.5-15.4) g/dL Hct 26.5 L 28.9 L (35.3-44.9) % Plt Count 343 (140-400) K/mcL Neutrophils # 4.9 (1.6-8.9) K/mcL BMP 08/30/16 Range/Units 04:20 Sodium 137 (136-145) mEq/L Potassium 3.4 L (3.5-4.5) mEq/L Chloride 106 (98-109) mEq/L Carbon Dioxide 20 (19-29) mEq/L BUN 3 L (7-20) mg/dL Creatinine 0.55 L (0.57-1.11) mg/dL Glucose 84 (70-99) mg/dL Calcium 8.0 L (8.6-10.8) mg/dL Vital Signs Temp Pulse Resp BP Pulse Ox 08/30/16 06:55 96 08/30/16 06:29 98.9 F 97 16 121/81 96 08/30/16 04:42 98.7 F 93 14 122/81 95 08/30/16 00:22 99.1 F 95 14 114/75 95 08/29/16 18:46 98.3 F 83 14 116/72 97 08/29/16 15:30 98.4 F 77 14 113/74 97 08/29/16 11:12 98.5 F 90 14 106/70 96 Intake and Output 08/29/16 08/30/16 08/30/16 23:59 07:59 15:59 Intake Total 1204 / 1204 1000 / 1000 104 / 104 Output Total 500 / 500 1200 / 1200 Balance 704 / 704 -200 / -200 104 / 104 Intake: IV Fluids 1204 / 1204 1000 / 1000 104 / 104 0.9 % Sodium Chloride 1, 1000 / 1000 1000 / 1000 000 ML @ 125 mls/hr IVC . Q8H [facility] Rx#:[id number] Rocephin 1,000 MG In 100 / 100 Dextrose 5% (Minibag+) 100 ML 100 ML @ 200 mls/ hr IVPB Q24H [facility] Rx#: [id number] Magnesium Sulfate 2 GM In 104 / 104 104 / 104 Dextrose 5% 100 ML @ 100 mls/hr IVPB ONCE ONE Rx# :[id number] Oral 0 / 0 0 / 0 0 / 0 Output: Urine 500 / 500 1200 / 1200 Other: Meal NPO NPO Percent of Meal Consumed 0% Blood Glucose* 98 105 - VTE Documentation of Mechanical Device: Intermittent pneumatic compression device Consult Discharge Plan - Plan Referrals: NO,PCP [Primary Care Provider] -
--- NOTE | 2016-08-30 16:53 | Internal Med Progress Note ---
Date of Encounter: 08/30/16 Time of Encounter: 16:51 - Assessment and plan (1) DVT prophylaxis Current Visit: Yes Status: Acute Assessment and plan: Start heparin subcutaneous postop. (2) Fecal impaction of colon Current Visit: Yes Status: Resolved Assessment and plan: Postoperative day 2 status post subtotal colectomy with cecal-rectal anastomosis and appendectomy and cholecystectomy. Continue pain control was IV Dilaudid. IV fluids. Nothing by mouth. Incentive spirometry. She is at high risk due to treatment with IV opiates. (3) UTI (urinary tract infection) Current Visit: Yes Status: Acute Assessment and plan: We will treat her with ceftriaxone. Follow up urine culture and sensitivities. Stop Rocephin. Urine culture is negative. Qualifiers: Urinary tract infection type: site unspecified Hematuria presence: without hematuria Qualified Code(s): N39.0 - Urinary tract infection, site not specified (4) Anxiety Current Visit: Yes Status: Chronic Assessment and plan: Continue with Xanax and Zoloft. (5) Abdominal pain Current Visit: Yes Status: Acute Assessment and plan: IV morphine for pain. Qualifiers: Abdominal location: generalized Qualified Code(s): R10.84 - Generalized abdominal pain (6) Megacolon Current Visit: Yes Status: Resolved (7) Postoperative anemia due to acute blood loss Current Visit: Yes Status: Acute Assessment and plan: Monitoring AND HEMATOCRIT. TRANSFUSE IF HEMOGLOBIN BELOW 7.0. - Subjective Interval history: 08/30/2016: Patient reports moderate right upper quadrant pain improved with IV pain medication. No nausea or vomiting. 08/29/2016: Patient is status post subtotal colectomy with cecal-rectal anastomosis. She reports right-sided abdominal pain, sharp and severe, improved with intravenous hydromorphone. 08/28/2016: Patient reports mild abdominal pain and significant abdominal distention which the pain started several days ago, distention has been long- standing. She states that she has been having occasional small amount of diarrhea however her abdominal distention and pain has not been relieved. She had presented to the hospital and was found to have impacted megacolon. - Constitutional Vitals: Temp Pulse Resp BP Pulse Ox 99.6 F 96 17 115/79 95 08/30/16 14:46 08/30/16 14:46 08/30/16 14:46 08/30/16 14:46 08/30/16 15:20 General appearance: Present: A&O X 3 - Respiratory Respiratory exam: Present: CTAB. Absent: accessory muscle use, rales, rhonchi, wheezes - Cardiovascular Cardiovascular exam: Present: RRR, +S1, +S2. Absent: diastolic murmur, gallop, rubs, systolic murmur - GI/Abdominal GI/Abdominal exam: Present: diminished bowel sounds, normal bowel sounds, soft, tenderness, no peritoneal signs. Absent: distended Additional comments: Surgical incision covered with dressing - Extremities Exam Extremities exam: Present: warm, radial pulses palpable and symetrical. Absent : calf tenderness, cyanotic, pedal edema - Skin Skin exam: Present: dry, intact Internal Medicine: Result - Labs CBC & Chem 7: 08/30/16 04:20 08/30/16 04:20 Labs: Short CBC 08/29/16 08/30/16 Range/Units 16:40 04:20 WBC 7.0 (4.3-11.1) K/mcL Hgb 9.4 L 8.2 L (11.5-15.4) g/dL Hct 28.9 L 26.5 L (35.3-44.9) % Plt Count 343 (140-400) K/mcL Neutrophils # 4.9 (1.6-8.9) K/mcL BMP 08/30/16 04:20 Sodium 137 Potassium 3.4 L Chloride 106 Carbon Dioxide 20 BUN 3 L Creatinine 0.55 L Glucose 84 Calcium 8.0 L - VTE Documentation of Mechanical Device: Intermittent pneumatic compression device Consult Discharge Plan - Plan Referrals: NO,PCP [Primary Care Provider] -
[2016-08-31] MEDS: *HR* HYDROmorphone (PF) 1 MG/ML SYRINGE IVP PRN ×9 (01:19→20:54)
[2016-08-31] MEDS: ALPRAZolam 1 MG TABLET PO PRN ×2 (01:21→13:39)
[2016-08-31] MEDS: Ondansetron 4 MG/2 ML VIAL IVP PRN (01:21)
[2016-08-31 05:38] LABS: Basophils % 0.2 %; Eosinophils # 0.1 K/mcL (0.0-0.6); Eosinophils % 1.4 %; Hematocrit 25.9 % (35.3-44.9); Hemoglobin 8.4 g/dL (11.5-15.4); Immature Granulocytes % 0.5 % (0-4); Lymphocytes # 1.6 K/mcL (0.6-4.6); Lymphocytes % 26.8 %; Mean Corpuscular HGB Conc 32.4 g/dL (31.6-35.5); Mean Corpuscular Volume 86.3 fL (83.0-100.0); Mean Platelet Volume 8.5 fL (9.4-12.4); Monocytes # 0.8 K/mcL (0.0-1.3); Monocytes % 13.4 %; Neutrophils # 3.4 K/mcL (1.6-8.9); Platelet Count 327 K/mcL (140-400); Red Cell Distribution Width 12.8 % (11.5-14.5); Segmented Neutrophils % 57.7 %
[2016-08-31 05:56] LABS: BUN/Creatinine Ratio 6 (6-26); Calcium 8.2 mg/dL (8.6-10.8); Carbon Dioxide 22 mEq/L (19-29); Chloride 102 mEq/L (98-109); Glucose 110 mg/dL (70-99); Magnesium 1.3 mg/dL (1.6-2.6); Osmolality,Calculated 275 (280-300); Potassium 3.2 mEq/L (3.5-4.5); Sodium 134 mEq/L (136-145); eGFR For African Americans > 60 (> 60); eGFR For Non-African Americans > 60 (> 60)
[2016-08-31 05:57] LABS: Blood Urea Nitrogen 3 mg/dL (7-20); Phosphorous 1.8 mg/dL (2.3-4.7)
[2016-08-31] MEDS: *HR* Heparin 5,000 UNIT/ML VIAL SQ SCH ×2 (06:37→18:46)
[2016-08-31] MEDS: Pantoprazole 40 MG VIAL IVP SCH (09:01)
--- NOTE | 2016-08-31 10:13 | General Surgery Progress Note ---
Date of Encounter: 08/31/16 Time of Encounter: 10:11 - Assessment and Plan (1) Fecal impaction of colon Current Visit: Yes Status: Resolved Patient is status post subtotal colectomy for a severe fecal impaction and an atonic rectum. Patient is postoperative day 3 and feeling much better. She is having some flatus however no bowel movements. If she does not have a bowel movement in the next 48-72 hours, then we may need to consider an enema to clean out the rest the rectum. If she fails this therapy than there is a chance she may need a permanent ileostomy. Subjective Patient reports: feels better Objective Vital Signs - Last 8 Hours Temp Pulse Resp BP Pulse Ox 08/31/16 07:48 98.4 F 78 16 118/80 97 08/31/16 03:17 98.6 F 86 16 116/76 97 Intake and Output 08/30/16 08/31/16 08/31/16 23:59 07:59 15:59 Intake Total 691 / 691 0 / 0 Output Total 1000 / 1000 900 / 900 Balance -309 / -309 -900 / -900 Intake: IV Fluids 691 / 691 KCl 20mEq IN D5%-0.45 691 / 691 NACL 20 meq In 1,000 ml @ 75 mls/hr IVC .[id number] [facility] Rx#:[id number] Oral 0 / 0 0 / 0 Output: Urine 1000 / 1000 900 / 900 Other: Blood Glucose* 103 119 - General physical appearance no distress - Eyes PERRL - ENT normal mucosa - Neck Neck exam: trachea midline - Respiratory normal respiratory effort - Cardiovascular Cardiovascular exam: Present: RRR - Abdomen Abdomen: Present: soft, non tender - Incision Incision: Present: clean and dry - Labs 08/31/16 05:01 08/31/16 05:01 Diabetes panel 08/31/16 Range/Units 05:01 Sodium 134 L (136-145) mEq/L Potassium 3.2 L (3.5-4.5) mEq/L Chloride 102 (98-109) mEq/L Carbon Dioxide 22 (19-29) mEq/L BUN 3 L (7-20) mg/dL Creatinine 0.48 L (0.57-1.11) mg/dL Glucose 110 H (70-99) mg/dL Calcium 8.2 L (8.6-10.8) mg/dL Calcium panel 08/31/16 Range/Units 05:01 Calcium 8.2 L (8.6-10.8) mg/dL Phosphorus 1.8 L D (2.3-4.7) mg/dL Pituitary panel 08/31/16 Range/Units 05:01 Sodium 134 L (136-145) mEq/L Potassium 3.2 L (3.5-4.5) mEq/L Chloride 102 (98-109) mEq/L Carbon Dioxide 22 (19-29) mEq/L BUN 3 L (7-20) mg/dL Creatinine 0.48 L (0.57-1.11) mg/dL Glucose 110 H (70-99) mg/dL Calcium 8.2 L (8.6-10.8) mg/dL Adrenal panel 08/31/16 Range/Units 05:01 Sodium 134 L (136-145) mEq/L Potassium 3.2 L (3.5-4.5) mEq/L Chloride 102 (98-109) mEq/L Carbon Dioxide 22 (19-29) mEq/L BUN 3 L (7-20) mg/dL Creatinine 0.48 L (0.57-1.11) mg/dL Glucose 110 H (70-99) mg/dL Calcium 8.2 L (8.6-10.8) mg/dL - VTE Documentation of Mechanical Device: Intermittent pneumatic compression device Consult Discharge Plan - Plan Referrals: NO,PCP [Primary Care Provider] -
[2016-08-31] MEDS ORDERED: Potassium Phosphate 44 MEQ in 0.9 % Sodium Chloride 250 ML IVPB ONE (11:32)
[2016-08-31] MEDS ORDERED: Magnesium Sulfate 2 GM in D5% in Water 100 ML IVPB ONE (11:32)
[2016-08-31] MEDS: D5% in 0.45% NACL w KCl 20 MEQ/1,000 ML MLS IVC SCH (13:14)
[2016-08-31] MEDS: Ketorolac 15 MG/ML VIAL IVP SCH ×3 (14:35→23:42)
--- NOTE | 2016-08-31 18:58 | Internal Med Progress Note ---
Date of Encounter: 08/31/16 Time of Encounter: 14:55 - Assessment and plan (1) DVT prophylaxis Current Visit: Yes Status: Acute Assessment and plan: Start heparin subcutaneous postop. (2) Fecal impaction of colon Current Visit: Yes Status: Resolved Assessment and plan: POD #3 status post subtotal colectomy with cecal-rectal anastomosis and appendectomy and cholecystectomy. Continue pain control was IV Dilaudid. IV fluids. Nothing by mouth. Incentive spirometry. Follow up with general surgery. Nutritional status is poor at this point. I will check albumin level. Follow- up with nutrition consult if the patient needs to remain nothing by mouth consider TPN. She is at high risk due to treatment with IV opiates. (3) UTI (urinary tract infection) Current Visit: Yes Status: Acute Assessment and plan: We will treat her with ceftriaxone. Follow up urine culture and sensitivities. Stop Rocephin. Urine culture is negative. Qualifiers: Urinary tract infection type: site unspecified Hematuria presence: without hematuria Qualified Code(s): N39.0 - Urinary tract infection, site not specified (4) Anxiety Current Visit: Yes Status: Chronic Assessment and plan: Continue with Xanax and Zoloft. (5) Abdominal pain Current Visit: Yes Status: Acute Assessment and plan: IV morphine for pain. Qualifiers: Abdominal location: generalized Qualified Code(s): R10.84 - Generalized abdominal pain (6) Megacolon Current Visit: Yes Status: Resolved (7) Postoperative anemia due to acute blood loss Current Visit: Yes Status: Acute Assessment and plan: Monitoring AND HEMATOCRIT. TRANSFUSE IF HEMOGLOBIN BELOW 7.0. (8) Hypokalemia Current Visit: Yes Status: Acute Assessment and plan: We will check and replete potassium and magnesium daily. (9) Hypomagnesemia Current Visit: Yes Status: Acute - Subjective Interval history: 08/31/2016: Patient's right sided abdominal pain has improved since yesterday. She is comfortable at rest, worse with ambulation. She has been passing gas but no stool yet. Denies associated fevers nausea or vomiting. 08/30/2016: Patient reports moderate right upper quadrant pain improved with IV pain medication. No nausea or vomiting. 08/29/2016: Patient is status post subtotal colectomy with cecal-rectal anastomosis. She reports right-sided abdominal pain, sharp and severe, improved with intravenous hydromorphone. 08/28/2016: Patient reports mild abdominal pain and significant abdominal distention which the pain started several days ago, distention has been long- standing. She states that she has been having occasional small amount of diarrhea however her abdominal distention and pain has not been relieved. She had presented to the hospital and was found to have impacted megacolon. - Constitutional Vitals: Temp Pulse Resp BP Pulse Ox 98.1 F 78 16 116/80 95 08/31/16 14:48 08/31/16 14:48 08/31/16 14:48 08/31/16 14:48 08/31/16 14:48 General appearance: Present: A&O X 3 - Respiratory Respiratory exam: Present: CTAB. Absent: accessory muscle use, rales, rhonchi, wheezes - Cardiovascular Cardiovascular exam: Present: RRR, +S1, +S2. Absent: diastolic murmur, gallop, rubs, systolic murmur - GI/Abdominal GI/Abdominal exam: Present: diminished bowel sounds, normal bowel sounds, soft, no peritoneal signs. Absent: distended, tenderness - Extremities Exam Extremities exam: Present: warm, radial pulses palpable and symetrical. Absent : calf tenderness, cyanotic, pedal edema - Neurological Exam Neurological exam: Present: CN II-XII intact, oriented X3, no focal deficits. Absent: pronater drift, facial droop, speech deficit Internal Medicine: Result - Labs CBC & Chem 7: 08/31/16 05:01 08/31/16 05:01 Labs: Short CBC 08/31/16 Range/Units 05:01 WBC 5.8 (4.3-11.1) K/mcL Hgb 8.4 L (11.5-15.4) g/dL Hct 25.9 L (35.3-44.9) % Plt Count 327 (140-400) K/mcL Neutrophils # 3.4 (1.6-8.9) K/mcL BMP 08/31/16 05:01 Sodium 134 L Potassium 3.2 L Chloride 102 Carbon Dioxide 22 BUN 3 L Creatinine 0.48 L Glucose 110 H Calcium 8.2 L - VTE Documentation of Mechanical Device: Intermittent pneumatic compression device Consult Discharge Plan - Plan Referrals: NO,PCP [Primary Care Provider] -
[2016-09-01] MEDS: D5% in 0.45% NACL w KCl 20 MEQ/1,000 ML MLS IVC SCH (03:36)
[2016-09-01] MEDS: *HR* HYDROmorphone (PF) 1 MG/ML SYRINGE IVP PRN ×7 (03:36→21:15)
[2016-09-01 05:10] LABS: Alanine Aminotransferase 8 Units/L (0-55); Albumin 2.3 g/dL (3.5-5.0); Albumin/Globulin Ratio 0.6 (1.1-2.2); Alkaline Phosphatase 48 Units/L (38-126); Aspartate Amino Transferase 18 Units/L (5-34); BUN/Creatinine Ratio 7 (6-26); Bilirubin,Direct 0.2 mg/dL (0.0-0.5); Bilirubin,Indirect 0.1 mg/dL (0.0-1.2); Bilirubin,Total 0.3 mg/dL (0.2-1.2); Calcium 8.8 mg/dL (8.6-10.8); Carbon Dioxide 23 mEq/L (19-29); Chloride 103 mEq/L (98-109); Globulin 3.8 g/dL (2.4-3.5); Glucose 94 mg/dL (70-99); Osmolality,Calculated 281 (280-300); Sodium 137 mEq/L (136-145); Total Protein 6.1 g/dL (6.0-8.3); eGFR For African Americans > 60 (> 60); eGFR For Non-African Americans > 60 (> 60)
[2016-09-01 05:13] LABS: Blood Urea Nitrogen 4 mg/dL (7-20); Potassium 4.4 mEq/L (3.5-4.5)
[2016-09-01] MEDS: *HR* Heparin 5,000 UNIT/ML VIAL SQ SCH ×2 (05:45→17:34)
[2016-09-01] MEDS: ALPRAZolam 1 MG TABLET PO PRN (05:45)
[2016-09-01] MEDS: Ketorolac 15 MG/ML VIAL IVP SCH ×3 (05:46→17:27)
[2016-09-01] MEDS: Pantoprazole 40 MG VIAL IVP SCH (08:29)
--- NOTE | 2016-09-01 11:51 | General Surgery Progress Note ---
Date of Encounter: 09/01/16 Time of Encounter: 11:40 - Assessment and Plan (1) Fecal impaction of colon Current Visit: Yes Status: Resolved POD #4 Exploratory laparotomy with subtotal colectomy, appendectomy, cholecystectomy Clear liquids Saline lock Supportive care/pain control IS every 1 hour while awake Ambulate hallways TID with assistance Add colace May consider enemas in the next 24-48 hours if no bowel movements (2) Megacolon Current Visit: Yes Status: Resolved POD # 4 Exploratory laparotomy with subtotal colectomy, appendectomy, cholecystectomy (3) DVT prophylaxis Current Visit: Yes Status: Acute Continue heparin 5,000 units SQ twice daily for DVT prophylaxis Subjective Patient reports: no new complaints, feels better, still having pain, pain is less, voiding w/o difficulty, flatus, no bowel movement, afebrile Objective Vital Signs - Last 8 Hours Temp Pulse Resp BP Pulse Ox 09/01/16 11:19 98.8 F 74 17 101/67 97 09/01/16 06:49 98.9 F 76 17 102/7 98 Intake and Output 08/31/16 09/01/16 09/01/16 23:59 07:59 15:59 Intake Total 260 / 260 1000 / 1000 0 / 0 Output Total 1000 / 1000 0 / 0 0 / 0 Balance -740 / -740 1000 / 1000 0 / 0 Intake: IV Fluids 260 / 260 1000 / 1000 KCl 20mEq IN D5%-0.45 1000 / 1000 NACL 20 meq In 1,000 ml @ 75 mls/hr IVC .[id number] [facility] Rx#:[id number] Potassium Phosphate 44 260 / 260 MEQ In 0.9 % Sodium Chloride 250 ML @ 40 mls/ hr IVPB ONCE ONE Rx#: [id number] Oral 0 / 0 0 / 0 0 / 0 Output: Urine 1000 / 1000 0 / 0 0 / 0 Other: Weight 52.435 kg Blood Glucose* 108 115 99 Patient Weight 09/01/16 23:59 Weight 52.435 kg - General physical appearance well developed, well nourished, no distress - Eyes normal ocular movement - ENT normal mucosa, atraumatic, normocephalic - Neck Neck exam: trachea midline - Respiratory normal respiratory effort, clear to auscultation - Cardiovascular Cardiovascular exam: Present: RRR - Abdomen Abdomen: Present: bowel sounds present, soft, tender (expected post-operative tenderness) - Incision Incision: Present: clean and dry, intact - Neurologic CN 2-12 grossly intact - Musculoskeletal normal gait, normal posture - Psychiatric oriented to time, oriented to person, oriented to place, speech is normal, memory intact - Labs 08/31/16 05:01 09/01/16 03:54 Diabetes panel 09/01/16 Range/Units 03:54 Sodium 137 (136-145) mEq/L Potassium 4.4 D (3.5-4.5) mEq/L Chloride 103 (98-109) mEq/L Carbon Dioxide 23 (19-29) mEq/L BUN 4 L (7-20) mg/dL Creatinine 0.60 (0.57-1.11) mg/dL Glucose 94 (70-99) mg/dL Calcium 8.8 (8.6-10.8) mg/dL AST 18 (5-34) Units/L ALT 8 (0-55) Units/L Alkaline Phosphatase 48 (38-126) Units/L Albumin 2.3 L (3.5-5.0) g/dL Calcium panel 09/01/16 Range/Units 03:54 Calcium 8.8 (8.6-10.8) mg/dL Albumin 2.3 L (3.5-5.0) g/dL Pituitary panel 09/01/16 Range/Units 03:54 Sodium 137 (136-145) mEq/L Potassium 4.4 D (3.5-4.5) mEq/L Chloride 103 (98-109) mEq/L Carbon Dioxide 23 (19-29) mEq/L BUN 4 L (7-20) mg/dL Creatinine 0.60 (0.57-1.11) mg/dL Glucose 94 (70-99) mg/dL Calcium 8.8 (8.6-10.8) mg/dL Adrenal panel 09/01/16 Range/Units 03:54 Sodium 137 (136-145) mEq/L Potassium 4.4 D (3.5-4.5) mEq/L Chloride 103 (98-109) mEq/L Carbon Dioxide 23 (19-29) mEq/L BUN 4 L (7-20) mg/dL Creatinine 0.60 (0.57-1.11) mg/dL Glucose 94 (70-99) mg/dL Calcium 8.8 (8.6-10.8) mg/dL Total Bilirubin 0.3 (0.2-1.2) mg/dL AST 18 (5-34) Units/L ALT 8 (0-55) Units/L Alkaline Phosphatase 48 (38-126) Units/L Albumin 2.3 L (3.5-5.0) g/dL - VTE Documentation of Mechanical Device: Intermittent pneumatic compression device Consult Discharge Plan - Plan Referrals: NO,PCP [Primary Care Provider] - - Attending Attestation I examined this patient and my medical decision-making was reviewed with the THEATER PROJECTIONIST/PA/Advanced Practice Nurse/Resident Physician. I agree with the documented findings, disposition and treatment plan as described except to the extent set forth below.
[2016-09-01] MEDS: *HR* OxyCODONE/APAP 5/325 TABLET PO PRN ×2 (12:15→19:00)
--- NOTE | 2016-09-01 18:53 | Internal Med Progress Note ---
Date of Encounter: 09/01/16 Time of Encounter: 13:00 - Assessment and plan (1) DVT prophylaxis Current Visit: Yes Status: Acute Assessment and plan: Start heparin subcutaneous postop. (2) Fecal impaction of colon Current Visit: Yes Status: Resolved Assessment and plan: POD #4 status post subtotal colectomy with cecal-rectal anastomosis and appendectomy and cholecystectomy. Continue pain control was IV Dilaudid. IV fluids. Advanced to clear liquid diets. Incentive spirometry. Will transfer care to general surgery. There are no further medical issues that need inpatient management and therefore I will sign off. Please reconsult us as needed. Nutritional status is poor at this point. I will check albumin level. Follow- up with nutrition consult if the patient needs to remain nothing by mouth consider TPN. . (3) UTI (urinary tract infection) Current Visit: Yes Status: Acute Assessment and plan: Stop ceftriaxone. Completed a course of antibiotic. Urine culture is negative. Qualifiers: Urinary tract infection type: site unspecified Hematuria presence: without hematuria Qualified Code(s): N39.0 - Urinary tract infection, site not specified (4) Anxiety Current Visit: Yes Status: Chronic Assessment and plan: Continue with Xanax and Zoloft. (5) Abdominal pain Current Visit: Yes Status: Acute Assessment and plan: IV morphine for pain. Qualifiers: Abdominal location: generalized Qualified Code(s): R10.84 - Generalized abdominal pain (6) Megacolon Current Visit: Yes Status: Resolved (7) Postoperative anemia due to acute blood loss Current Visit: Yes Status: Acute Assessment and plan: Monitoring AND HEMATOCRIT. TRANSFUSE IF HEMOGLOBIN BELOW 7.0. (8) Hypokalemia Current Visit: Yes Status: Acute Assessment and plan: Has resolved. (9) Hypomagnesemia Current Visit: Yes Status: Acute Assessment and plan: Has resolved. (10) Severe protein-calorie malnutrition Current Visit: Yes Status: Acute Assessment and plan: Nutrition consult. Consideration for parenteral nutrition if the patient does not tolerate oral diet. - Subjective Interval history: 09/01/2016: Patient's abdominal pain has improved. She is passing gas. She denies nausea. She has not passed a bowel movement. 08/31/2016: Patient's right sided abdominal pain has improved since yesterday. She is comfortable at rest, worse with ambulation. She has been passing gas but no stool yet. Denies associated fevers nausea or vomiting. 08/30/2016: Patient reports moderate right upper quadrant pain improved with IV pain medication. No nausea or vomiting. 08/29/2016: Patient is status post subtotal colectomy with cecal-rectal anastomosis. She reports right-sided abdominal pain, sharp and severe, improved with intravenous hydromorphone. 08/28/2016: Patient reports mild abdominal pain and significant abdominal distention which the pain started several days ago, distention has been long- standing. She states that she has been having occasional small amount of diarrhea however her abdominal distention and pain has not been relieved. She had presented to the hospital and was found to have impacted megacolon. - Constitutional Vitals: Temp Pulse Resp BP Pulse Ox 98.3 F 78 17 115/77 98 09/01/16 14:31 09/01/16 14:31 09/01/16 14:31 09/01/16 14:31 09/01/16 14:31 General appearance: Present: A&O X 3 - Eye Eye exam: Present: PERRL, conjuntiva pink, sclera anicteric Pupils: Present: PERRL - Respiratory Respiratory exam: Present: CTAB. Absent: accessory muscle use, rales, rhonchi, wheezes - Cardiovascular Cardiovascular exam: Present: RRR, +S1, +S2. Absent: diastolic murmur, gallop, rubs, systolic murmur - GI/Abdominal GI/Abdominal exam: Present: normal bowel sounds, soft (Abdominal surgical incision closed with debbie.), no peritoneal signs. Absent: distended, tenderness - Extremities Exam Extremities exam: Present: warm, radial pulses palpable and symetrical. Absent : calf tenderness, cyanotic, pedal edema Internal Medicine: Result - Labs CBC & Chem 7: 08/31/16 05:01 09/01/16 03:54 Labs: BMP 09/01/16 03:54 Sodium 137 Potassium 4.4 D Chloride 103 Carbon Dioxide 23 BUN 4 L Creatinine 0.60 Glucose 94 Calcium 8.8 Liver Function 09/01/16 Range/Units 03:54 Total Bilirubin 0.3 (0.2-1.2) mg/dL Direct Bilirubin 0.2 (0.0-0.5) mg/dL AST 18 (5-34) Units/L ALT 8 (0-55) Units/L Alkaline Phosphatase 48 (38-126) Units/L Albumin 2.3 L (3.5-5.0) g/dL - VTE Documentation of Mechanical Device: Intermittent pneumatic compression device Consult Discharge Plan - Plan Referrals: NO,PCP [Primary Care Provider] -
[2016-09-02] MEDS: *HR* HYDROmorphone (PF) 1 MG/ML SYRINGE IVP PRN ×8 (00:41→23:22)
[2016-09-02] MEDS: ALPRAZolam 1 MG TABLET PO PRN ×3 (00:42→23:23)
[2016-09-02] MEDS: Ketorolac 15 MG/ML VIAL IVP SCH ×3 (00:52→11:43)
[2016-09-02] MEDS: *HR* Heparin 5,000 UNIT/ML VIAL SQ SCH ×2 (06:40→17:28)
[2016-09-02] MEDS: Pantoprazole 40 MG VIAL IVP SCH (07:41)
--- NOTE | 2016-09-02 11:03 | General Surgery Progress Note ---
Date of Encounter: 09/02/16 Time of Encounter: 10:45 - Assessment and Plan (1) Fecal impaction of colon Current Visit: Yes Status: Resolved POD #5 Exploratory laparotomy with subtotal colectomy, appendectomy, cholecystectomy Full liquids Supportive care/pain control- increase Percocet to 10/325mg IS every 1 hour while awake Ambulate hallways TID with assistance continue colace (2) Megacolon Current Visit: Yes Status: Resolved POD # 5 Exploratory laparotomy with subtotal colectomy, appendectomy, cholecystectomy (3) DVT prophylaxis Current Visit: Yes Status: Acute Continue heparin 5,000 units SQ twice daily for DVT prophylaxis Subjective Patient reports: no new complaints, feels better, still having pain, pain is less, tolerating liquids well, voiding w/o difficulty, flatus, bowel movement, afebrile Objective Vital Signs - Last 8 Hours Temp Pulse Resp BP Pulse Ox 09/02/16 08:02 98 F 76 13 95/60 95 09/02/16 05:02 98.4 F 72 16 97/63 97 Intake and Output 09/01/16 09/02/16 09/02/16 23:59 07:59 15:59 Intake Total 480 / 480 480 / 480 120 / 120 Output Total 0 / 0 700 / 700 0 / 0 Balance 480 / 480 -220 / -220 120 / 120 Intake: Oral 480 / 480 480 / 480 120 / 120 Output: Urine 0 / 0 700 / 700 0 / 0 Other: Meal Breakfast Percent of Meal Consumed 0% Stool Size Moderate Stool Consistency liquid Stool Color Brown Weight 52.4 kg Patient Weight 09/02/16 23:59 Weight 52.4 kg - General physical appearance well developed, well nourished, no distress - Eyes normal ocular movement - ENT normal mucosa, atraumatic, normocephalic - Neck Neck exam: trachea midline - Respiratory normal respiratory effort, clear to auscultation - Abdomen Abdomen: Present: bowel sounds present, soft, tender (expected post-operative tenderness) - Incision Incision: Present: clean and dry, intact - Integumentary no rash, no growths - Neurologic CN 2-12 grossly intact - Musculoskeletal normal gait, normal posture - Psychiatric oriented to time, oriented to person, oriented to place, speech is normal, memory intact - Labs 08/31/16 05:01 09/01/16 03:54 - VTE Documentation of Mechanical Device: Intermittent pneumatic compression device Consult Discharge Plan - Plan Referrals: NO,PCP [Primary Care Provider] - - Attending Attestation I examined this patient and my medical decision-making was reviewed with the FITTER TACKER/PA/Advanced Practice Nurse/Resident Physician. I agree with the documented findings, disposition and treatment plan as described except to the extent set forth below.
[2016-09-02] MEDS: *HR* OxyCODONE/APAP 10/325 TABLET PO PRN (11:43)
[2016-09-03] MEDS: *HR* HYDROmorphone (PF) 1 MG/ML SYRINGE IVP PRN ×5 (02:08→14:58)
[2016-09-03] MEDS: *HR* Heparin 5,000 UNIT/ML VIAL SQ SCH (04:48)
[2016-09-03 07:44] VITALS: BP 95/62
[2016-09-03] MEDS: ALPRAZolam 1 MG TABLET PO PRN ×2 (09:14→14:58)
[2016-09-03] MEDS: Pantoprazole 40 MG VIAL IVP SCH (09:15)
--- NOTE | 2016-09-03 14:30 | Discharge Summary ---
Date of Encounter: 09/03/16 Time of Encounter: 14:28 - Discharge Diagnosis (1) Fecal impaction of colon Priority: Primary Status: Resolved (2) Megacolon Priority: Secondary Status: Resolved - Discharge Medications Prescriptions: OxyCODONE/APAP 10/325 [Percocet 10/325 MG] 1 each PO Q6HR PRN #39 tablet PRN Reason: Moderate Pain Docusate [Colace] 100 mg PO BID #60 capsule Home Medications: Alprazolam [Xanax 1 MG Tablet] 1 mg PO TID PRN 08/27/16 [History] Sertraline [Zoloft] 50 mg PO DAILY 08/27/16 [History] Docusate [Colace] 100 mg PO BID #60 capsule 09/03/16 [Rx] OxyCODONE/APAP 10/325 [Percocet 10/325 MG] 1 each PO Q6HR PRN #39 tablet [Rx] Allergies/Adverse Reactions: Allergies No Known Allergies Allergy (Verified 01/28/16 22:25) General Surgery Exam Initial Vital Signs Temp Pulse Resp BP Pulse Ox 98.1 F 109 18 127/92 97 08/27/16 17:15 08/27/16 17:15 08/27/16 17:15 08/27/16 17:15 08/27/16 17:15 - General physical appearance well developed, well nourished, no distress - Eyes normal ocular movement - ENT normal mucosa, atraumatic, normocephalic - Neck trachea midline - Respiratory normal respiratory effort, clear to auscultation - Cardiovascular Cardiovascular exam: Present: RRR - Abdomen Abdomen general surgery: Present: bowel sounds present, soft, tender (Expected postoperative tenderness) - Incision Incision: Present: clean and dry, intact - Integumentary Integumentary general surgery: Present: warm and dry - Neurologic Present: CN 2-12 grossly intact - Psychiatric Psychiatric general surgery: Present: appropriate, oriented to person, oriented to place, oriented to time, speech is normal, memory intact Date of admission: 08/28/16 04:55 Primary care physician: PCP NO Discharging clinician: Uzair Santos) Anticipated date of discharge: 09/03/16 - Patient Status Disposition: Home, Self-Care Condition: Good Functional capacity at discharge: independent ambulation Overall status at discharge: patient is progressing back to baseline - Discharge Instructions Follow Up With: NO,PCP [Primary Care Provider] - Leona Santos CRISIS INTERVENTION COUNSELOR [Advanced Practice Nurse] - 09/10/16 10:15 am (Surgery follow-up) Forms: ED Satisfaction Letter, Work/School Release Additional Instructions: #1 may shower, no tub bath for 2 weeks #2 wash incisions with soap and water and pat dry daily #3 no lifting, pushing, pulling more than 15 pounds for the next 6 weeks #4 no driving until off narcotics for 24 hours and able to safely react in the car #5 may climb stairs - Diet and Activity Activity: other (See additional instructions above) Diet: advance to your usual diet - Hospital Course Hospital course: Ms. Gracia is a 31 year old female presented to the hospital with a severe fecal impaction and megacolon. She was taken to the operating room with Dr. Arellano and did undergo exploratory laparotomy and subtotal colectomy. The patient remained on bowel rest while awaiting return of bowel function. With return of bowel function she was started on clear liquids and slowly advance as tolerated. She is currently tolerating a soft diet. Her vital signs are stable, she is afebrile, her pain is well-controlled, she is voiding and ambulate without difficulty, she is moving her bowels on a regular basis. We will begin discharge planning and plan for outpatient follow-up in the next 10-14 days. - Time Spent with Patient Total time spent providing and/or coordinating discharge services: Less than 30 minutes Labs on day of discharge: Labs from last 24 hours 09/03/16 04:45 Magnesium 1.5 L - Attending Attestation I examined this patient and my medical decision-making was reviewed with the NITROGLYCERIN SUPERVISOR/PA/Advanced Practice Nurse/Resident Physician. I agree with the documented findings, disposition and treatment plan as described except to the extent set forth below.
[2016-09-03] MEDS: *HR* OxyCODONE/APAP 10/325 TABLET PO PRN (16:05)
== END 2016-09-03 16:38 | disposition home or self-care (01) | DRG 221 ==
LOC: 3ANU 17:13 → EMEROO 17:13 → 3ANU 08-28 00:49
PROVIDERS: ADMIT Internal Medicine; ATTEND Internal Medicine

== ENCOUNTER 2016-12-17 20:51 | Inpatient (IN) ==
[2016-12-17] MEDS ORDERED: *HR* Morphine 2 MG/ML SYRINGE IVP ONE (21:45)
--- NOTE | 2016-12-17 21:47 | Emergency Department Note ---
Disposition Clinical Impression: Megacolon, Fecal impaction Constipation Qualifiers: Constipation type: unspecified constipation type Qualified Code(s): K59.00 - Constipation, unspecified Disposition: Admitted As Inpatient Condition: Fair Referrals: NO,PCP [Primary Care Provider] - Forms: Work/School Release, ED Satisfaction Letter Time of Disposition: 00:35 Abdominal Pain HPI - General Chief Complaint: ED Abdominal Pain Stated Complaint: constipated Time Seen by Provider: 12/17/16 21:33 Source: patient Mode of arrival: ambulatory Limitations: no limitations Nursing Notes Reviewed: Yes Vital Signs Reviewed: Yes - History of Present Illness HPI Narrative: Patient is a 31-year-old female with past medical history of megacolon. She has had surgeries in the past including partial colectomy by Dr. Arellano in August 2016. She presents today due to abdominal pain and constipation. She usually takes stool softeners and MiraLAX. However, she is not taking her MiraLAX because she was unsure if she could take it with her most recent surgery. She says that she has not had a bowel movement in 2 weeks. She is having significant abdominal pain, feels that her abdomen is distended to the point that "she feels ". She says that she cannot strain to have a bowel movement. Denies any chest pain, shortness of breath, nausea, vomiting, fevers , diarrhea. Pain Scale: 10 - Related Data Home Medications Medication Instructions Recorded Confirmed ALPRAZolam [Xanax 1 MG Tablet] 1 mg PO TID PRN 08/27/16 08/27/16 Sertraline [Zoloft] 50 mg PO DAILY 08/27/16 08/27/16 Previous Rx's Medication Instructions Recorded Docusate [Colace] 100 mg PO BID #60 capsule 09/03/16 OxyCODONE/APAP 10/325 [Percocet 1 each PO Q6HR PRN #39 tablet 09/03/16 10/325 MG] Allergies Allergy/AdvReac Type Severity Reaction Status Date / Time ketorolac [From Toradol] Allergy makes her Verified 12/17/16 21:25 restless doxycycline AdvReac Vomiting Verified 09/15/16 23:48 All systems ED: reviewed and negative except as stated. Constitutional: Denies: fever Cardiovascular: Denies: chest pain Respiratory: Denies: dyspnea Gastrointestinal: Reports: abdominal pain, constipation. Denies: nausea, vomiting, diarrhea, melena, hematochezia Genitourinary: Denies: urgency, dysuria, frequency, hematuria Abdominal Pain PMH - Past Medical History Medical history: Reports: migraine Female Surgical History: Reports: appendectomy, cholecystectomy, other METHODS STUDY ANALYST history: Reports: no METHODS STUDY ANALYST history Psychiatric history: Reports: anxiety, depression - Social History Smoking status: Current every day smoker Alcohol use: Reports: none Drug use: Reports: none Physical Exam - General Limitations: no limitations General appearance: alert - Head Head exam: atraumatic, normocephalic, normal inspection - Eye Eye exam: Present: normal appearance, PERRL, EOMI - ENT ENT exam: normal exam, normal oropharynx, mucous membranes moist - Neck Neck exam: Present: normal inspection, full ROM, trachea midline - Chest Chest inspection: Present: normal inspection, symmetric chest wall rise - Respiratory Respiratory exam: Present: normal lung sounds bilaterally - Cardiovascular Cardiovascular exam: Present: regular rate, normal rhythm, normal heart sounds - Abdominal Exam Abdominal exam: Present: other (Abdomen soft. Generalized abdominal tenderness with visible moving soft mass in the epigastric region. Mild generalized voluntary guarding.) - Extremities Exam Extremities exam: Present: normal inspection, full ROM. Absent: tenderness, pedal edema - Neurological Exam Neurological exam: Present: alert, oriented X3 - Psychiatric Psychiatric exam: Present: normal affect, normal mood - Skin Skin exam: Present: warm, dry, intact, normal color Course Course Narrative: Vitals within normal limits. Physical exam shows Abdomen soft. Generalized abdominal tenderness with visible moving soft mass in the epigastric region. Mild generalized voluntary guarding. Due to history of abdominal surgeries, we will obtain CT of the abdomen and pelvis with IV contrast to assess for obstruction. Patient given morphine for pain control as she has an allergy to Toradol. We will also obtain urinalysis and urine . 00:24 UA shows contamination, blood but patient admits to being on period. Will not treat, will send for culture. Ct shows:Large amount of stool in the colon with massively distended rectosigmoid. Rectal wall thickening and perirectal fat stranding suggest stercoral proctitis. This is something that bedside ER treatment such as enemas could not treat due to significant stool burden and massively distended bowel. . Patient does admit that she has had stool removed while under sedation in the past. Dr. Mcgill was consulted for stool impaction, massively distended bowel, and need for disimpaction. Abdomen/Pelvis CT 12/17/16 23:50 IMPRESSION: Large amount of stool in the colon with massively distended rectosigmoid. Rectal wall thickening and perirectal fat stranding suggest stercoral proctitis. D/ / James Donnelly MD / James Donnelly MD Interpreting Provider: James Donnelly MD Vital Signs Temperature 98.5 F 12/17/16 21:19 Pulse Rate 97 12/17/16 21:19 Respiratory Rate 16 12/17/16 21:19 Blood Pressure 113/80 12/17/16 21:19 O2 Sat by Pulse Oximetry 100 12/17/16 21:19 Temperature 98.5 F 12/17/16 21:19 Pulse Rate 76 12/17/16 23:09 Respiratory Rate 18 12/17/16 23:09 Blood Pressure 108/79 12/17/16 23:09 O2 Sat by Pulse Oximetry 100 12/17/16 23:09 Oxygen Delivery Oxygen Delivery Room Air Abdominal Pain - MDM Narrative Medical decision making narrative: UA shows contamination, blood but patient admits to being on period. Will not treat, will send for culture. Ct shows:Large amount of stool in the colon with massively distended rectosigmoid. Rectal wall thickening and perirectal fat stranding suggest stercoral proctitis. This is something that bedside ER treatment such as enemas could not treat due to significant stool burden and massively distended bowel. . Patient does admit that she has had stool removed while under sedation in the past. Dr. Mcgill was consulted for stool impaction, massively distended bowel, and need for disimpaction. Dr. Mcgill recommended NPO and admission to surgery service for further care. - Medical Records Medical records reviewed: Yes I reviewed the patient's medical records. - Lab Data Lab results reviewed: Yes I reviewed the patient's lab results. Result diagrams: 12/17/16 21:54 Lab Results 12/17/16 12/17/16 12/17/16 Range/Units 21:54 22:10 22:10 Sodium 140 (136-145) mEq/L Potassium 3.5 (3.5-4.5) mEq/L Chloride 107 (98-109) mEq/L Carbon Dioxide 25 (19-29) mEq/L BUN 8 (7-20) mg/dL Creatinine 0.76 (0.57-1.11) mg/dL Est GFR ( Amer) > 60 (> 60) Est GFR (Non-Af Amer) > 60 (> 60) BUN/Creatinine Ratio 11 (6-26) Glucose 91 (70-99) mg/dL Calculated Osmolality 288 (280-300) Calcium 8.8 (8.6-10.8) mg/dL Urine Color Dark Yellow (Yellow) Urine Clarity Cloudy A (Clear) Urine pH 6.0 (5.0-8.0) pH Units Ur Specific [place] 1.019 (1.010-1.025) Urine Protein Negative (Neg-Trace) mg/dL Urine Glucose (UA) Normal (Normal) mg/dL Urine Ketones Negative (Negative) mg/dL Urine Blood Large H (Negative) Urine Nitrite Negative (Negative) Urine Bilirubin Small H (Negative) Urine Urobilinogen Normal (Normal) mg/dL Ur Leukocyte Esterase Trace H (Negative) Urine Microscopic RBC TNTC H (0-3) per hpf Urine Microscopic WBC 3-5 H (0-3) per hpf Ur Squamous Epith Cells Many H (None-Few) per lpf Urine Bacteria None Seen (None-Few) per hpf Hyaline Casts None Seen (None-Few) per lpf Ur Culture Indicated? YES A (NO) Urine Test Negative (Negative) - Radiology Data Radiology results reviewed: Yes I reviewed the patient's radiology results. Abdomen/Pelvis CT 12/17/16 23:50 IMPRESSION: Large amount of stool in the colon with massively distended rectosigmoid. Rectal wall thickening and perirectal fat stranding suggest stercoral proctitis. D/ / James Donnelly MD / James Donnelly MD Interpreting Provider: James Donnelly MD S.B.A.R. - S.B.A.R. Situation: Demographics, MOA Background: Presenting Complaint, Relevant PMH, Meds, & Allergies Assessment: Vital Signs, Course and respsone to treatment, Exam Concerns, Patient/Family Expectation, Pertinant Lab Results Recommendation: Barrier(s) to disposition, Recommendation based on pending studies, treatments, or consults Khanh Report Given to: Dr. Artem Cassidy Repor Time: 00:35 Attestation Statement - Attestation Attestation: I examined this patient and my medical decision-making was reviewed with the Resident Physician. I agree with the documented findings, disposition and treatment plan as described except to the extent set forth below. Female patient with history of megacolon. Presents today with increasing abdominal pain and difficulty with having bowel movements for 2 weeks. She has had surgery previously. She has large palpable stool [place] with pain on examination. This laboratory analyses were performed which show no significant derangements. CT scan of the abdomen and pelvis is pending. Abnormalities will be notified to general surgery for further evaluation. Plan to admit the patient for further evaluation of severe constipation in the setting of ongoing abdominal pain.
[2016-12-17 22:21] LABS: Bilirubin,Urine Small (Negative); Blood,Urine Large (Negative); Clarity,Urine Cloudy (Clear); Color,Urine Dark Yellow (Yellow); Glucose,Urine (UA) Normal (Normal); Ketones,Urine Negative (Negative); Leukocyte Esterase,Urine Trace (Negative); Nitrite,Urine Negative (Negative); Protein,Urine Negative (Neg-Trace); Specific Gravity,Urine 1.019 (1.010-1.025); Urobilinogen,Urine Normal (Normal)
[2016-12-17 22:23] LABS: Bacteria,Urine None Seen per hpf (None-Few); Hyaline Casts,Urine None Seen per lpf (None-Few); RBC,Urine TNTC per hpf (0-3); Squamous Epithelial Cell,Urine Many per lpf (None-Few)
[2016-12-17 22:38] LABS: BUN/Creatinine Ratio 11 (6-26); Blood Urea Nitrogen 8 mg/dL (7-20); Calcium 8.8 mg/dL (8.6-10.8); Carbon Dioxide 25 mEq/L (19-29); Chloride 107 mEq/L (98-109); Glucose 91 mg/dL (70-99); Osmolality,Calculated 288 (280-300); Potassium 3.5 mEq/L (3.5-4.5); Sodium 140 mEq/L (136-145); eGFR For African Americans > 60 (> 60); eGFR For Non-African Americans > 60 (> 60)
[2016-12-17] MEDS ORDERED: *HR* HYDROmorphone (PF) 1 MG/ML SYRINGE IVP ONE (22:49)
[2016-12-18] MEDS ORDERED: *HR* HYDROmorphone (PF) 1 MG/ML SYRINGE IVP ONE (00:32)
[2016-12-18] MEDS ORDERED: Ondansetron 4 MG/2 ML VIAL IVP ONE (00:32)
[2016-12-18] MEDS ORDERED: *HR* Morphine 2 MG/ML SYRINGE IVP PRN (00:49)
[2016-12-18] MEDS ORDERED: Ondansetron 4 MG/2 ML VIAL IVP PRN ×2 (00:51→16:48)
[2016-12-18] MEDS: 0.9 % Sodium Chloride 1,000 ML IVC SCH ×3 (01:45→18:42)
[2016-12-18] MEDS: *HR* Heparin 5,000 UNIT/ML VIAL SQ SCH (05:09)
[2016-12-18] MEDS: *HR* HYDROmorphone (PF) 1 MG/ML SYRINGE IVP PRN ×8 (05:09→23:00)
[2016-12-18] MEDS ORDERED: Pantoprazole 40 MG VIAL IVP SCH (06:30)
--- NOTE | 2016-12-18 09:44 | General Surg History&Physical ---
<Georges Arango - Last Filed: 12/18/16 18:09> Date of Encounter: 12/18/16 Time of Encounter: 09:42 Assessment and Plan (1) Fecal impaction of colon Current Visit: No Status: Acute The assessment and plan as outlined above was discussed with the patient and/or family members who expressed understanding and agreement. All questions were answered. CT abdomen and pelvis demonstrates large amount of stool in the colon with massively distended rectosigmoid. Rectal wall thickening and perirectal fat stranding suggest stercoral proctitis NPO IV fluid @ 125 Pain control Supportive care Encourage ICS and ambulation Discussed surgical options with patient to include surgical disimpaction, diverting ileostomy, total colectomy, or possible J-Pouch procedure performed in [place]. Will reevaluate later today and consider disposition at that time. (2) Megacolon Current Visit: No Status: Acute The assessment and plan as outlined above was discussed with the patient and/or family members who expressed understanding and agreement. All questions were answered. See above. (3) Abdominal pain Current Visit: No Status: Acute The assessment and plan as outlined above was discussed with the patient and/or family members who expressed understanding and agreement. All questions were answered. See above Qualifiers: Abdominal location: generalized Qualified Code(s): R10.84 - Generalized abdominal pain (4) Anxiety Current Visit: No Status: Chronic The assessment and plan as outlined above was discussed with the patient and/or family members who expressed understanding and agreement. All questions were answered. Restarting her home Xanax (5) DVT prophylaxis Current Visit: No Status: Acute The assessment and plan as outlined above was discussed with the patient and/or family members who expressed understanding and agreement. All questions were answered. Heparin 5000 Units SQ 8hrs. Ambulation as tolerated History of Present Illness Chief complaint: abdominal pain HPI: Ms. Gracia is a very pleasant 31 year old female female with a past medical history of chronic constipation, anxiety, depression and migraines who presents to the [facility] emergency room with a chief complaint of generalized abdominal pain starting yesterday. She states the pain is very sharp in nature, associated with nausea and has not had a bowel movement in 2 weeks. She reports that she ran out of stool softeners 2 weeks ago for a period of 4 days and since then, has been doubling her dose daily. Patient did not use her MiraLAX because she was unaware it was recommended. On arrival to the emergency room, vital signs are stable, BMP normal, UPT negative and urinalysis showing contaminate. Patient was started on pain control, IV hydration and supportive care. CT of abdomen and pelvis demonstrates large amount of stool in the colon with massively distended rectosigmoid and thus, surgery was consulted. Patient was subsequently admitted to and started on pain control, IV fluids and supportive care. On evaluation, she states she previously had a surgical disimpaction by Dr. Galvez in 2014 along with a subtotal colectomy, appendectomy, cholecystectomy and surgical disimpaction by Dr. Arellano in August 2016. Compared to her previous encounters with impacted colon, this current complaint is the worst for pain and distention. Patient denies any new PALOMARES, chest pain, SOB, dysuria, joint pain, LE edema, fevers, or change in mood. We will continue to follow Ms. Gracia and recommend further interventions as appropriate. Past Med Surg Social Fam HX - Past Medical History Medical history: migraine Psychiatric history: anxiety, depression - Past Surgical History Surgical History: appendectomy, cholecystectomy - Social History Smoking Status: Current every day smoker Smokeless Tobacco Status: No Alcohol use: none Drug use: none - Family History Mother Age: 47 Living Status: Still Living Father Age: 47 Living Status: Still Living Hx Family Psychosocial Disorders: Yes (depression) Medications and Allergies ALPRAZolam [Xanax 1 MG Tablet] 1 mg PO TID PRN 08/27/16 [History] Sertraline [Zoloft] 50 mg PO DAILY 08/27/16 [History] Allergies doxycycline Adverse Reaction (Verified 12/18/16 08:19) Vomiting ketorolac [From Toradol] Adverse Reaction (Verified 12/18/16 08:19) makes her restless Review of Systems All systems PM: See HPI General Surgery Exam Initial Vital Signs Temp Pulse Resp BP Pulse Ox 98.5 F 97 16 113/80 100 12/17/16 21:19 12/17/16 21:19 12/17/16 21:19 12/17/16 21:19 12/17/16 21:19 - General physical appearance well developed, well nourished, no distress - Eyes normal ocular movement - ENT atraumatic, normocephalic - Neck trachea midline - Respiratory normal expansion, normal respiratory effort, clear to auscultation - Cardiovascular Cardiovascular exam: Present: RRR, no murmurs/rubs/gallops - Abdomen Abdomen general surgery: Present: bowel sounds present (hyperactive), soft, distended, tender, surgical scars. Absent: guarding, rebound Abdominal Tenderness: Present: RUQ, suprapubic - Integumentary Integumentary general surgery: Present: warm and dry - Neurologic Present: CN 2-12 grossly intact - Psychiatric Psychiatric general surgery: Present: appropriate, oriented to person, oriented to place, oriented to time, speech is normal, memory intact Results - Labs 12/17/16 21:54 Abnormal lab results POC Glucose 94 (58-89) H 12/18/16 06:44 Urine Clarity Cloudy (Clear) A 12/17/16 22:10 Urine Blood Large (Negative) H 12/17/16 22:10 Urine Bilirubin Small (Negative) H 12/17/16 22:10 Ur Leukocyte Esterase Trace (Negative) H 12/17/16 22:10 Urine Microscopic RBC TNTC per hpf (0-3) H 12/17/16 22:10 Urine Microscopic WBC 3-5 per hpf (0-3) H 12/17/16 22:10 Ur Squamous Epith Cells Many per lpf (None-Few) H 12/17/16 22:10 Ur Culture Indicated? YES (NO) A 12/17/16 22:10 All other labs normal. - Imaging CT scan - abdomen: report reviewed, image reviewed <Uzair Arellano E - Last Filed: 12/23/16 10:46> Date of Encounter: 12/23/16 History of Present Illness HPI: Ms. Gracia is a 31 year old female Review of Systems All systems PM: A 10-system review of systems was performed and is negative for pertinent findings except as documented above in the HPI. General Surgery Exam Initial Vital Signs Temp Pulse Resp BP Pulse Ox 98.5 F 97 16 113/80 100 12/17/16 21:19 12/17/16 21:19 12/17/16 21:19 12/17/16 21:19 12/17/16 21:19 Results - Labs 12/23/16 05:37 12/23/16 05:37 Abnormal lab results Hgb 10.4 g/dL (11.5-15.4) L D 12/23/16 05:37 Hct 32.2 % (35.3-44.9) L 12/23/16 05:37 MCV 82.8 fL (83.0-100.0) L 12/23/16 05:37 MCH 26.7 pg (28.0-33.3) L 12/23/16 05:37 RDW 14.8 % (11.5-14.5) H 12/23/16 05:37 Plt Count 484 K/mcL (140-400) H 12/23/16 05:37 MPV 8.6 fL (9.4-12.4) L 12/23/16 05:37 Carbon Dioxide 16 mEq/L (19-29) L 12/23/16 05:37 Glucose 110 mg/dL (70-99) H 12/23/16 05:37 POC Glucose 94 (58-89) H 12/21/16 16:18 Magnesium 1.2 mg/dL (1.6-2.6) L 12/21/16 03:55 Urine Clarity Cloudy (Clear) A 12/17/16 22:10 Urine Blood Large (Negative) H 12/17/16 22:10 Urine Bilirubin Small (Negative) H 12/17/16 22:10 Ur Leukocyte Esterase Trace (Negative) H 12/17/16 22:10 Urine Microscopic RBC TNTC per hpf (0-3) H 12/17/16 22:10 Urine Microscopic WBC 3-5 per hpf (0-3) H 12/17/16 22:10 Ur Squamous Epith Cells Many per lpf (None-Few) H 12/17/16 22:10 Ur Culture Indicated? YES (NO) A 12/17/16 22:10 Diabetes panel 12/23/16 Range/Units 05:37 Sodium 136 (136-145) mEq/L Potassium 3.9 (3.5-4.5) mEq/L Chloride 105 (98-109) mEq/L Carbon Dioxide 16 L (19-29) mEq/L BUN 8 (7-20) mg/dL Creatinine 0.61 (0.57-1.11) mg/dL Glucose 110 H (70-99) mg/dL Calcium 9.1 (8.6-10.8) mg/dL Calcium panel 12/23/16 Range/Units 05:37 Calcium 9.1 (8.6-10.8) mg/dL Pituitary panel 12/23/16 Range/Units 05:37 Sodium 136 (136-145) mEq/L Potassium 3.9 (3.5-4.5) mEq/L Chloride 105 (98-109) mEq/L Carbon Dioxide 16 L (19-29) mEq/L BUN 8 (7-20) mg/dL Creatinine 0.61 (0.57-1.11) mg/dL Glucose 110 H (70-99) mg/dL Calcium 9.1 (8.6-10.8) mg/dL Adrenal panel 12/23/16 Range/Units 05:37 Sodium 136 (136-145) mEq/L Potassium 3.9 (3.5-4.5) mEq/L Chloride 105 (98-109) mEq/L Carbon Dioxide 16 L (19-29) mEq/L BUN 8 (7-20) mg/dL Creatinine 0.61 (0.57-1.11) mg/dL Glucose 110 H (70-99) mg/dL Calcium 9.1 (8.6-10.8) mg/dL All other labs normal. - Attending Attestation The case was reviewed with the resident. I did examine the patient. Due to the large amount of stool within her colon she has not require manual disimpaction in the operating room as well as a diverting ileostomy. We will discuss with the [facility] about follow-up for workup of adult onset Hirschsprung's, narcotic use induced obstipation, and pelvic floor dysfunction.
[2016-12-18] MEDS ORDERED: *HR* LORazepam 2 MG/ML VIAL IVP PRN (13:53)
--- NOTE | 2016-12-18 14:42 | Anesthesia Evaluation PreOp ---
Date of Encounter: 12/18/16 Time of Encounter: 14:40 - Past History Planned Operation: Completion Colectomy Cardiac History: Denies any Significant Hx Pulmonary History: Smoker, Pack/yr (1/2 ppd) [employer] History: Other (Anxiety/Depression) Other Medical History: Other (Chronic Constipation, Megacolon) Anesthesia History: No Prior Anesthetic Complications, Past Anesthesia (Exp. Lap.) : No Test: Negative (12/17/2016) Alcohol Use: none Drug use: none Medications and Allergies ALPRAZolam [Xanax 1 MG Tablet] 1 mg PO TID PRN 08/27/16 [History] Sertraline [Zoloft] 50 mg PO DAILY 08/27/16 [History] Allergies doxycycline Adverse Reaction (Verified 12/18/16 08:19) Vomiting ketorolac [From Toradol] Adverse Reaction (Verified 12/18/16 08:19) makes her restless - Meds/Allergy Pre-op Review Medications Reviewed: Yes Allergies Reviewed: Yes Beta Blockers on Current Med List: No Anesthesia Results - Labs 12/17/16 21:54 Laboratory Tests 08/31/16 12/17/16 12/17/16 05:01 21:54 22:10 WBC 5.8 Hgb 8.4 L Hct 25.9 L Plt Count 327 Sodium 140 Potassium 3.5 Chloride 107 Carbon Dioxide 25 BUN 8 Creatinine 0.76 Urine Test Negative Anesthesia Exam O2 Sat Height 1.68 m Height 1.63 m Weight 58.014 kg Weight 57.969 kg O2 Sat by Pulse Oximetry 96 O2 Sat by Pulse Oximetry 96 O2 Sat by Pulse Oximetry 100 O2 Sat by Pulse Oximetry 100 O2 Sat by Pulse Oximetry 100 O2 Sat by Pulse Oximetry 100 Vital Signs Temp Pulse Resp BP Pulse Ox 98.5 F 97 16 113/80 100 12/17/16 21:19 12/17/16 21:19 12/17/16 21:19 12/17/16 21:19 12/17/16 21:19 Vital Signs/O2 Sat, Most Current Temp Pulse Resp BP Pulse Ox 98.2 F 88 16 101/65 96 12/18/16 10:04 12/18/16 10:04 12/18/16 10:04 12/18/16 10:04 12/18/16 10:04 Height: 5'6'' Weight: 127# NPO (# of Hours): > 8 hrs Pain Scale: 0 Pain Scale Used: Numeric (1 - 10) - HEENT Pupil (Motor): Pupils equal, EOMI Mallampati: II Teeth: Normal Oral Opening: Greater than 3 - [employer] LOC: Oriented [employer] Motor: Normal RUE, Normal LUE, Normal RLE, Normal LLE, Normal Face [employer] Sensory: Normal: RUE, LUE, RLE, LLE, Face - Cardiac Rhythm: Regular Murmur: None JVD: No Carotid Bruit: No - Pulmonary Breath Sounds: bilateral Clear Respiratory Effort: Symmetrical Anesthesia Assess/Plan ASA Score: 2 Modified Bernarda Scale for Level of Consciousness: Cooperative, oriented, and tranquil Anesthetic Plan: General Autologous Blood: Yes Monitoring Plan: Standard Monitors Recovery Plan: PACU
[2016-12-18] MEDS ORDERED: Dexamethasone 4 MG/ML VIAL ONE (14:57)
[2016-12-18] MEDS ORDERED: Lidocaine -MPF 4% 5 ML AMPUL ONE (14:57)
[2016-12-18] MEDS ORDERED: *HR* Midazolam HCl 2 MG/2 ML VIAL ONE (14:57)
[2016-12-18] MEDS ORDERED: *HR* FentaNYL (PF) 100 MCG/2 ML VIAL ONE (14:57)
[2016-12-18] MEDS ORDERED: Ondansetron 4 MG/2 ML VIAL ONE (14:57)
[2016-12-18] MEDS ORDERED: *HR* Succinylcholine 200 MG/10 ML VIAL IVP ONE (14:57)
[2016-12-18] MEDS ORDERED: *HR* Rocuronium Bromide 50 MG/5 ML VIAL ONE (14:57)
[2016-12-18] MEDS ORDERED: Neostigmine Methylsulfate 3 MG/3 ML SYRINGE ONE (14:57)
[2016-12-18] MEDS ORDERED: *HR* Propofol 200 MG/20 ML VIAL IVP ONE (14:58)
[2016-12-18] MEDS ORDERED: Lidocaine -MPF 2% 2 ML VIAL ONE (14:58)
[2016-12-18] MEDS ORDERED: *HR* HYDROmorphone 2 MG/ML SYRINGE ONE ×2 (16:44→16:56)
[2016-12-18] MEDS ORDERED: *HR* Promethazine 25 MG/ML VIAL IVP PRN (16:48)
[2016-12-18] MEDS ORDERED: Naloxone 0.4 MG/ML INJ IVP PRN (16:48)
[2016-12-18] MEDS ORDERED: *HR* Meperidine 25 MG/ML SYRINGE IVP PRN (16:48)
[2016-12-18] MEDS ORDERED: *HR* HYDROmorphone (PF) 1 MG/ML SYRINGE ONE (17:05)
[2016-12-18] MEDS ORDERED: ceFAZolin 2,000 MG in D5% in Water 100 ML IVPB ONE (17:13)
[2016-12-18] MEDS ORDERED: Acetaminophen IV 1,000 MG/100 ML INFUS..BTL IVPB ONE (17:23)
--- NOTE | 2016-12-18 17:32 | Anesthesia Evaluation Post Op ---
Date of Encounter: 12/18/16 Time of Encounter: 17:31 - Vital Signs Vital Signs: Vital Signs/O2 Sat, Most Current Temp Pulse Resp BP Pulse Ox 98.7 F 83 20 104/71 96 12/18/16 17:00 12/18/16 17:21 12/18/16 17:21 12/18/16 17:21 12/18/16 17:21 - Lungs Lungs: Clear Ascult./Percussion - Airway Airway: Non-obstructed - Cardiovascular Regular Rate - Mental Status Mental Status: Alert & Oriented, Answers Appropriately - Pain Pain Scale: 0 Pain Scale used: Numeric (1 - 10) - Nausea Vomiting Nausea Vomiting: Not Present - Hydration Hydration: NPO, Has not voided - Discharge PostOp Status: Transfer Patient to floor
[2016-12-18] MEDS ORDERED: *HR* Heparin 5,000 UNIT/ML VIAL SQ SCH (18:00)
[2016-12-18] MEDS ORDERED: Ketorolac 15 MG/ML VIAL IVP SCH (18:00)
[2016-12-19] MEDS: *HR* LORazepam 2 MG/ML VIAL IVP PRN ×4 (00:41→22:37)
[2016-12-19] MEDS: *HR* HYDROmorphone (PF) 1 MG/ML SYRINGE IVP PRN ×10 (01:13→23:36)
[2016-12-19] MEDS: 0.9 % Sodium Chloride 1,000 ML IVC SCH ×3 (01:21→17:17)
[2016-12-19 05:48] LABS: Hematocrit 28.3 % (35.3-44.9); Hemoglobin 8.8 g/dL (11.5-15.4); Immature Granulocytes % 0.3 % (0-4); Lymphocytes # 1.1 K/mcL (0.6-4.6); Lymphocytes % 15.6 %; Mean Corpuscular HGB Conc 31.1 g/dL (31.6-35.5); Mean Corpuscular Hemoglobin 26.6 pg (28.0-33.3); Mean Corpuscular Volume 85.5 fL (83.0-100.0); Monocytes # 0.7 K/mcL (0.0-1.3); Monocytes % 10.4 %; Platelet Count 326 K/mcL (140-400); Red Blood Count 3.31 M/mcL (3.82-4.97); Red Cell Distribution Width 14.5 % (11.5-14.5); Segmented Neutrophils % 73.7 %
[2016-12-19 05:59] LABS: BUN/Creatinine Ratio 11 (6-26); Blood Urea Nitrogen 7 mg/dL (7-20); Calcium 8.3 mg/dL (8.6-10.8); Carbon Dioxide 21 mEq/L (19-29); Chloride 108 mEq/L (98-109); Glucose 88 mg/dL (70-99); Osmolality,Calculated 281 (280-300); Sodium 137 mEq/L (136-145); eGFR For African Americans > 60 (> 60); eGFR For Non-African Americans > 60 (> 60)
[2016-12-19] MEDS: *HR* Heparin 5,000 UNIT/ML VIAL SQ SCH ×2 (06:05→18:42)
[2016-12-19] MEDS: Pantoprazole 40 MG VIAL IVP SCH (06:06)
[2016-12-19] MEDS: Ondansetron 4 MG/2 ML VIAL IVP PRN ×2 (08:56→21:32)
[2016-12-19] MEDS ORDERED: Water for inj. (sterile) 10 ML IV ONE (12:48)
[2016-12-19] MEDS: Acetaminophen 325 MG TABLET PO PRN ×2 (16:32→22:36)
--- NOTE | 2016-12-19 18:39 | General Surgery Progress Note ---
Date of Encounter: 12/19/16 Time of Encounter: 13:15 - Assessment and Plan (1) Fecal impaction of colon Current Visit: No Status: Chronic (2) DVT prophylaxis Current Visit: No Status: Acute (3) S/P ileostomy Current Visit: Yes Status: Acute ok start clears - sips pain improved with q2 hr pain control OOB to chair/ambulate aggressive IS ileostomy viable - bowel sweat Subjective Patient reports: no new complaints, feels better, still having pain, no flatus, no bowel movement, afebrile Objective Vital Signs - Last 8 Hours Temp Pulse Resp BP Pulse Ox 12/19/16 15:50 98.4 F 104 16 117/81 94 12/19/16 10:44 99.4 F 100 17 112/77 96 Intake and Output 12/19/16 12/19/16 12/19/16 07:59 15:59 23:59 Intake Total 1000 / 1000 1000 / 1000 191 / 1916 Output Total 0 / 0 0 / 0 1000 / 1000 Balance 1000 / 1000 1000 / 1000 916 / 916 Intake: IV Fluids 1000 / 1000 1000 / 1000 1915 / 1916 0.9 % Sodium Chloride 1, 1000 / 1000 1000 / 1000 191 / 1916 000 ML @ 125 mls/hr IVC . Q8H [facility] Rx#:[id number] Oral 0 / 0 0 / 0 0 / 0 Output: Urine 0 / 0 0 / 0 1000 / 1000 Other: Meal NPO Clear Percent of Meal Consumed 0% 0% # Bowel Movements 0 0 Weight 58 kg Blood Glucose* 94 101 Patient Weight 12/19/16 23:59 Weight 58 kg - General physical appearance no distress, moderate pain - Eyes PERRL, normal ocular movement - ENT normal mucosa, normocephalic - Neck Neck exam: trachea midline - Respiratory normal expansion, clear to auscultation - Cardiovascular Cardiovascular exam: Present: RRR, no murmurs/rubs/gallops - Abdomen Abdomen: Present: soft, tender (appropriate post op tenderness) Additional Comments: ileostomy - pink, viable bowel sweat - Integumentary no rash, no growths - Neurologic CN 2-12 grossly intact - Musculoskeletal normal posture - Psychiatric oriented to time, oriented to person, memory intact - Labs 12/19/16 05:31 12/19/16 05:31 Diabetes panel 12/19/16 Range/Units 05:31 Sodium 137 (136-145) mEq/L Potassium 4.0 (3.5-4.5) mEq/L Chloride 108 (98-109) mEq/L Carbon Dioxide 21 (19-29) mEq/L BUN 7 (7-20) mg/dL Creatinine 0.65 (0.57-1.11) mg/dL Glucose 88 (70-99) mg/dL Calcium 8.3 L (8.6-10.8) mg/dL Calcium panel 12/19/16 Range/Units 05:31 Calcium 8.3 L (8.6-10.8) mg/dL Pituitary panel 12/19/16 Range/Units 05:31 Sodium 137 (136-145) mEq/L Potassium 4.0 (3.5-4.5) mEq/L Chloride 108 (98-109) mEq/L Carbon Dioxide 21 (19-29) mEq/L BUN 7 (7-20) mg/dL Creatinine 0.65 (0.57-1.11) mg/dL Glucose 88 (70-99) mg/dL Calcium 8.3 L (8.6-10.8) mg/dL Adrenal panel 12/19/16 Range/Units 05:31 Sodium 137 (136-145) mEq/L Potassium 4.0 (3.5-4.5) mEq/L Chloride 108 (98-109) mEq/L Carbon Dioxide 21 (19-29) mEq/L BUN 7 (7-20) mg/dL Creatinine 0.65 (0.57-1.11) mg/dL Glucose 88 (70-99) mg/dL Calcium 8.3 L (8.6-10.8) mg/dL - VTE Documentation of Mechanical Device: Intermittent pneumatic compression device Consult Discharge Plan - Plan Referrals: NONE,PCP [Primary Care Provider] -
[2016-12-20] MEDS: *HR* HYDROmorphone (PF) 1 MG/ML SYRINGE IVP PRN ×9 (01:28→22:50)
[2016-12-20] MEDS: 0.9 % Sodium Chloride 1,000 ML IVC SCH ×3 (01:28→22:52)
[2016-12-20 04:34] LABS: Basophils % 0.2 %; Eosinophils % 0.2 %; Hematocrit 27.8 % (35.3-44.9); Hemoglobin 8.7 g/dL (11.5-15.4); Immature Granulocytes % 0.2 % (0-4); Lymphocytes # 1.2 K/mcL (0.6-4.6); Lymphocytes % 23.3 %; Mean Corpuscular HGB Conc 31.3 g/dL (31.6-35.5); Mean Corpuscular Hemoglobin 26.9 pg (28.0-33.3); Mean Corpuscular Volume 86.1 fL (83.0-100.0); Mean Platelet Volume 9.2 fL (9.4-12.4); Monocytes # 0.7 K/mcL (0.0-1.3); Monocytes % 14.3 %; Neutrophils # 3.2 K/mcL (1.6-8.9); Platelet Count 318 K/mcL (140-400); Red Blood Count 3.23 M/mcL (3.82-4.97); Red Cell Distribution Width 14.6 % (11.5-14.5); Segmented Neutrophils % 61.8 %
[2016-12-20 04:45] LABS: BUN/Creatinine Ratio 13 (6-26); Blood Urea Nitrogen 8 mg/dL (7-20); Calcium 8.2 mg/dL (8.6-10.8); Carbon Dioxide 21 mEq/L (19-29); Chloride 104 mEq/L (98-109); Glucose 70 mg/dL (70-99); Osmolality,Calculated 275 (280-300); Potassium 3.7 mEq/L (3.5-4.5); Sodium 134 mEq/L (136-145); eGFR For African Americans > 60 (> 60); eGFR For Non-African Americans > 60 (> 60)
[2016-12-20] MEDS: Acetaminophen 325 MG TABLET PO PRN ×2 (04:47→11:07)
[2016-12-20] MEDS: *HR* LORazepam 2 MG/ML VIAL IVP PRN ×3 (04:48→21:17)
[2016-12-20] MEDS: *HR* Heparin 5,000 UNIT/ML VIAL SQ SCH ×2 (05:51→17:52)
[2016-12-20] MEDS: Pantoprazole 40 MG VIAL IVP SCH (05:51)
--- NOTE | 2016-12-20 11:46 | General Surgery Progress Note ---
Date of Encounter: 12/20/16 Time of Encounter: 10:50 - Assessment and Plan (1) Fecal impaction of colon Current Visit: No Status: Chronic discussed with patient she may still pass something from rectum, its good if she does (2) DVT prophylaxis Current Visit: No Status: Acute heparin sq (3) S/P ileostomy Current Visit: Yes Status: Acute tolerating clears, advance to fulls pain improved with q2 hr pain control OOB to chair/ambulate aggressive IS ileostomy functioning OOB to chair for all meals - discussed with thelma (4) GERD (gastroesophageal reflux disease) Current Visit: Yes Status: Chronic complaining of gerd symptoms and requested omeprazole bid Qualifiers: Esophagitis presence: esophagitis presence not specified Qualified Code(s) : K21.9 - Gastro-esophageal reflux disease without esophagitis Subjective Patient reports: no new complaints, feels better, still having pain, pain is less, tolerating liquids well, flatus, bowel movement Objective Vital Signs - Last 8 Hours Temp Pulse Resp BP Pulse Ox 12/20/16 10:46 98.2 F 99 16 119/83 95 12/20/16 07:11 99.8 F H 111 20 105/73 93 12/20/16 04:22 99.5 F 117 22 120/84 93 Intake and Output 12/19/16 12/20/16 12/20/16 23:59 07:59 15:59 Intake Total 1915 1000 / 1000 1000 / 1000 Output Total 1000 / 1000 1650 / 1650 150 / 150 Balance 916 / 916 -650 / -650 850 / 850 Intake: IV Fluids 1915 1000 / 1000 1000 / 1000 0.9 % Sodium Chloride 1, 1915 1000 / 1000 1000 / 1000 000 ML @ 125 mls/hr IVC . Q8H COUNTS INCLUDE 234 BEDS AT THE [facility] Rx#:[id number] Oral 0 / 0 Output: Urine 1000 / 1000 1500 / 1500 Stool 0 / 0 150 / 150 150 / 150 Other: Meal Clear Percent of Meal Consumed 0% Stool Size Small Stool Consistency liquid liquid Stool Color Brown Brown Weight 64.13 kg Patient Weight 12/20/16 23:59 Weight 64.13 kg - General physical appearance well developed, no distress - Eyes PERRL, normal ocular movement - ENT normal mucosa, normocephalic - Neck Neck exam: trachea midline - Respiratory normal expansion, clear to auscultation - Cardiovascular Cardiovascular exam: Present: RRR - Abdomen Abdomen: Present: bowel sounds present, soft, distended, tender (appropriate post op tenderness) Additional Comments: loop ileostomy pink and functioning, + flatus and stool - Incision Incision: Present: clean and dry, intact - Integumentary no rash, no growths - Neurologic CN 2-12 grossly intact - Musculoskeletal normal posture - Psychiatric oriented to time, oriented to person, oriented to place, speech is normal, memory intact - Labs 12/20/16 03:55 12/20/16 03:55 Short CBC 12/20/16 Range/Units 03:55 WBC 5.1 (4.3-11.1) K/mcL Hgb 8.7 L (11.5-15.4) g/dL Hct 27.8 L (35.3-44.9) % Plt Count 318 (140-400) K/mcL Neutrophils # 3.2 (1.6-8.9) K/mcL BMP 12/20/16 Range/Units 03:55 Sodium 134 L (136-145) mEq/L Potassium 3.7 (3.5-4.5) mEq/L Chloride 104 (98-109) mEq/L Carbon Dioxide 21 (19-29) mEq/L BUN 8 (7-20) mg/dL Creatinine 0.60 (0.57-1.11) mg/dL Glucose 70 (70-99) mg/dL Calcium 8.2 L (8.6-10.8) mg/dL Vital Signs Temp Pulse Resp BP Pulse Ox 12/20/16 10:46 98.2 F 99 16 119/83 95 12/20/16 07:11 99.8 F H 111 20 105/73 93 12/20/16 04:22 99.5 F 117 22 120/84 93 12/20/16 00:21 98.9 F 107 18 103/69 93 12/19/16 20:15 93 12/19/16 19:21 99.5 F 105 16 114/80 96 12/19/16 15:50 98.4 F 104 16 117/81 94 Intake and Output 12/19/16 12/20/16 12/20/16 23:59 07:59 15:59 Intake Total 1916 / 1916 1000 / 1000 1000 / 1000 Output Total 1000 / 1000 1650 / 1650 150 / 150 Balance 916 / 916 -650 / -650 850 / 850 Intake: IV Fluids 1915 1000 / 1000 1000 / 1000 0.9 % Sodium Chloride 1, 1915 1000 / 1000 1000 / 1000 000 ML @ 125 mls/hr IVC . Q8H [facility] Rx#:[id number] Oral 0 / 0 Output: Urine 1000 / 1000 1500 / 1500 Stool 0 / 0 150 / 150 150 / 150 Other: Meal Clear Percent of Meal Consumed 0% Stool Size Small Stool Consistency liquid liquid Stool Color Brown Brown Weight 64.13 kg Patient Weight 12/20/16 23:59 Weight 64.13 kg - VTE Documentation of Mechanical Device: Intermittent pneumatic compression device Consult Discharge Plan - Plan Referrals: NONE,PCP [Primary Care Provider] -
[2016-12-20] MEDS: *HR* OxyCODONE/APAP 5/325 TABLET PO PRN (16:20)
[2016-12-20] MEDS: Ondansetron 4 MG/2 ML VIAL IVP PRN (16:20)
[2016-12-21] MEDS: *HR* OxyCODONE/APAP 5/325 TABLET PO PRN ×2 (00:18→18:23)
[2016-12-21] MEDS: Ondansetron 4 MG/2 ML VIAL IVP PRN ×3 (00:18→16:27)
[2016-12-21] MEDS: *HR* HYDROmorphone (PF) 1 MG/ML SYRINGE IVP PRN ×8 (02:02→21:59)
[2016-12-21 04:39] LABS: Basophils % 0.2 %; Eosinophils % 0.6 %; Hematocrit 27.8 % (35.3-44.9); Hemoglobin 8.9 g/dL (11.5-15.4); Immature Granulocytes % 0.2 % (0-4); Lymphocytes # 0.7 K/mcL (0.6-4.6); Lymphocytes % 13.2 %; Mean Corpuscular Hemoglobin 26.8 pg (28.0-33.3); Mean Corpuscular Volume 83.7 fL (83.0-100.0); Mean Platelet Volume 9.1 fL (9.4-12.4); Monocytes # 0.8 K/mcL (0.0-1.3); Monocytes % 15.2 %; Neutrophils # 3.8 K/mcL (1.6-8.9); Platelet Count 340 K/mcL (140-400); Red Blood Count 3.32 M/mcL (3.82-4.97); Red Cell Distribution Width 14.5 % (11.5-14.5); Segmented Neutrophils % 70.6 %
[2016-12-21 04:51] LABS: BUN/Creatinine Ratio 8 (6-26); Calcium 8.6 mg/dL (8.6-10.8); Carbon Dioxide 19 mEq/L (19-29); Chloride 105 mEq/L (98-109); Glucose 85 mg/dL (70-99); Magnesium 1.2 mg/dL (1.6-2.6); Osmolality,Calculated 275 (280-300); Phosphorous 2.4 mg/dL (2.3-4.7); Potassium 3.7 mEq/L (3.5-4.5); Sodium 134 mEq/L (136-145); eGFR For African Americans > 60 (> 60); eGFR For Non-African Americans > 60 (> 60)
[2016-12-21 05:00] LABS: Blood Urea Nitrogen 5 mg/dL (7-20)
[2016-12-21] MEDS: *HR* Heparin 5,000 UNIT/ML VIAL SQ SCH ×3 (06:11→16:27)
[2016-12-21] MEDS: 0.9 % Sodium Chloride 1,000 ML IVC SCH ×2 (10:24→19:11)
[2016-12-21] MEDS: *HR* LORazepam 2 MG/ML VIAL IVP PRN ×2 (11:42→23:22)
--- NOTE | 2016-12-21 13:39 | General Surgery Progress Note ---
Date of Encounter: 12/21/16 Time of Encounter: 13:30 - Assessment and Plan (1) Fecal impaction of colon Current Visit: No Status: Chronic Postoperative day #3 from a diverting loop ileostomy with Dr. Arellano Continue clear liquid diet per patient request IV fluids at 50 mL's per hour Supportive care and pain control Ostomy care daily Wound care consult for ileostomy teaching- Clare Madrigal notified Increase activity as tolerated PPI therapy daily (2) Anxiety Current Visit: No Status: Chronic Ativan as needed for anxiety (3) DVT prophylaxis Current Visit: No Status: Acute Heparin 5000 units subcutaneous twice daily for DVT prophylaxis Ambulating hallways 3 times a day with assistance Subjective Patient reports: no new complaints, feels better, still having pain, pain is less, tolerating liquids well, voiding w/o difficulty, flatus (via ileostomy and rectum), bowel movement (via ileostomy and rectum), afebrile (Tmax 99.6) Objective Vital Signs - Last 8 Hours Temp Pulse Resp BP Pulse Ox 12/21/16 12:38 99.5 F 98 14 109/75 96 12/21/16 10:40 98.9 F 92 16 116/78 94 12/21/16 07:53 99.3 F 100 12 102/66 94 Intake and Output 12/20/16 12/21/16 12/21/16 23:59 07:59 15:59 Intake Total 120 / 120 0 / 0 Output Total 2200 / 2200 1150 / 1150 Balance -2080 / -2080 -1150 / -1150 0 / 0 Intake: Oral 120 / 120 0 / 0 Output: Urine 2100 / 2100 900 / 900 Stool 100 / 100 250 / 250 Other: Meal Dinner Breakfast Percent of Meal Consumed 0% 0% Weight 58.2 kg Patient Weight 12/21/16 23:59 Weight 58.2 kg - General physical appearance well developed, well nourished, no distress - Eyes normal ocular movement - ENT normal mucosa, atraumatic, normocephalic - Neck Neck exam: trachea midline - Respiratory normal respiratory effort, clear to auscultation - Cardiovascular Cardiovascular exam: Present: RRR - Abdomen Abdomen: Present: bowel sounds present, soft, tender (Expected postoperative tenderness), wound (Ileostomy is pink and moist with soft stool noted) - Incision Incision: Present: clean and dry, intact - Neurologic CN 2-12 grossly intact - Musculoskeletal normal gait, normal posture - Psychiatric oriented to time, oriented to person, oriented to place, speech is normal, memory intact - Labs 12/21/16 03:55 12/21/16 03:55 Diabetes panel 12/21/16 Range/Units 03:55 Sodium 134 L (136-145) mEq/L Potassium 3.7 (3.5-4.5) mEq/L Chloride 105 (98-109) mEq/L Carbon Dioxide 19 (19-29) mEq/L BUN 5 L (7-20) mg/dL Creatinine 0.60 (0.57-1.11) mg/dL Glucose 85 (70-99) mg/dL Calcium 8.6 (8.6-10.8) mg/dL Calcium panel 12/21/16 Range/Units 03:55 Calcium 8.6 (8.6-10.8) mg/dL Phosphorus 2.4 (2.3-4.7) mg/dL Pituitary panel 12/21/16 Range/Units 03:55 Sodium 134 L (136-145) mEq/L Potassium 3.7 (3.5-4.5) mEq/L Chloride 105 (98-109) mEq/L Carbon Dioxide 19 (19-29) mEq/L BUN 5 L (7-20) mg/dL Creatinine 0.60 (0.57-1.11) mg/dL Glucose 85 (70-99) mg/dL Calcium 8.6 (8.6-10.8) mg/dL Adrenal panel 12/21/16 Range/Units 03:55 Sodium 134 L (136-145) mEq/L Potassium 3.7 (3.5-4.5) mEq/L Chloride 105 (98-109) mEq/L Carbon Dioxide 19 (19-29) mEq/L BUN 5 L (7-20) mg/dL Creatinine 0.60 (0.57-1.11) mg/dL Glucose 85 (70-99) mg/dL Calcium 8.6 (8.6-10.8) mg/dL - VTE Documentation of Mechanical Device: Intermittent pneumatic compression device Consult Discharge Plan - Plan Referrals: NONE,PCP [Primary Care Provider] -
[2016-12-21] MEDS: Magnesium Oxide 400 MG TABLET PO SCH (16:27)
[2016-12-22] MEDS: *HR* HYDROmorphone (PF) 1 MG/ML SYRINGE IVP PRN ×10 (01:21→23:27)
[2016-12-22] MEDS: *HR* Heparin 5,000 UNIT/ML VIAL SQ SCH ×2 (06:23→18:26)
[2016-12-22] MEDS: Ondansetron 4 MG/2 ML VIAL IVP PRN ×2 (08:50→16:32)
[2016-12-22] MEDS: Magnesium Oxide 400 MG TABLET PO SCH (08:50)
[2016-12-22] MEDS ORDERED: Simethicone 80 MG TAB.CHEW PO PRN (11:15)
[2016-12-22] MEDS: Famotidine 20 MG TABLET PO SCH ×2 (11:31→11:41)
[2016-12-22] MEDS: *HR* Promethazine 25 MG/ML VIAL IVP PRN ×2 (13:51→20:01)
--- NOTE | 2016-12-22 14:15 | General Surgery Progress Note ---
Date of Encounter: 12/22/16 Time of Encounter: 14:05 - Assessment and Plan (1) S/P ileostomy Current Visit: Yes Status: Acute Post-operative day 4 from diverting loop ileostomy with Dr. Arellano Patient still unable to tolerate PO diet Continue clear liquid diet Continue IV fluids Continue Supportive care and pain control Continue Ostomy care daily Continue wound care Ambulate as tolerated PPI therapy daily AM CBC and BMP (2) DVT prophylaxis Current Visit: No Status: Acute Heparin 5000 units subcutaneous twice daily ambulate as tolerated with assistance (3) Anemia Current Visit: No Status: Chronic Continue clear liquid diet am CBC and BMP Qualifiers: Anemia type: unspecified type Qualified Code(s): D64.9 - Anemia, unspecified Subjective Patient reports: still having pain, tolerating liquids well, voiding w/o difficulty, flatus (via ileostomy and rectum), bowel movement (ileostomy and rectum), vomiting (patient is still unable to tolerate PO. Vomits at every attempt. Unable to take PO medications. ), afebrile Objective Vital Signs - Last 8 Hours Temp Pulse Resp BP Pulse Ox 12/22/16 11:06 98.5 F 88 16 100/65 97 12/22/16 07:40 96 12/22/16 07:05 99.1 F 88 15 116/77 96 Intake and Output 12/21/16 12/22/16 12/22/16 23:59 07:59 15:59 Intake Total 1217 / 1217 0 / 0 0 / 0 Output Total 375 / 375 750 / 750 675 / 675 Balance 842 / 842 -750 / -750 -675 / -675 Intake: IV Fluids 1217 / 1217 0.9 % Sodium Chloride 1, 1217 / 1217 000 ML @ 50 mls/hr IVC . Q20H [facility] Rx#:[id number] Oral 0 / 0 0 / 0 0 / 0 Output: Urine 0 / 0 750 / 750 675 / 675 Stool 375 / 375 0 / 0 0 / 0 Other: Meal Dinner refused Percent of Meal Consumed 0% 0% Stool Size Small Stool Consistency liquid Stool Color Brown # Voids 1 Weight 58.6 kg Blood Glucose* 94 Patient Weight 12/22/16 23:59 Weight 58.6 kg - General physical appearance well developed, well nourished, no distress (patient is sleepy and tired. ) - Eyes PERRL - Neck Neck exam: no masses, no bruits, trachea midline, no lymphadectomy, no venous distension - Respiratory normal expansion, normal respiratory effort, clear to percussion, clear to auscultation - Cardiovascular Cardiovascular exam: Present: RRR, no murmurs/rubs/gallops - Abdomen Abdomen: Present: bowel sounds present, soft, tender, wound (ileostomy pink and moist. brown soft stool present) - Incision Incision: Present: clean and dry, intact - Neurologic CN 2-12 grossly intact - Labs 12/21/16 03:55 12/21/16 03:55 - VTE Documentation of Mechanical Device: Intermittent pneumatic compression device Consult Discharge Plan - Plan Referrals: NONE,PCP [Primary Care Provider] -
[2016-12-22] MEDS: *HR* LORazepam 2 MG/ML VIAL IVP PRN ×2 (16:45→23:21)
[2016-12-22] MEDS: 0.9 % Sodium Chloride 1,000 ML IVC SCH (18:47)
[2016-12-22] MEDS: Milk and Molasses Enema 200 ML RC SCH (23:20)
[2016-12-23] MEDS: Famotidine 20 MG TABLET PO SCH ×3 (01:55→20:11)
[2016-12-23] MEDS: *HR* HYDROmorphone (PF) 1 MG/ML SYRINGE IVP PRN ×7 (03:06→23:34)
[2016-12-23] MEDS: *HR* Promethazine 25 MG/ML VIAL IVP PRN ×3 (03:06→20:11)
[2016-12-23 06:05] LABS: Basophils % 0.2 %; Hematocrit 32.2 % (35.3-44.9); Hemoglobin 10.4 g/dL (11.5-15.4); Immature Granulocytes % 0.3 % (0-4); Lymphocytes # 0.7 K/mcL (0.6-4.6); Lymphocytes % 10.8 %; Mean Corpuscular HGB Conc 32.3 g/dL (31.6-35.5); Mean Corpuscular Hemoglobin 26.7 pg (28.0-33.3); Mean Corpuscular Volume 82.8 fL (83.0-100.0); Mean Platelet Volume 8.6 fL (9.4-12.4); Monocytes # 1.1 K/mcL (0.0-1.3); Monocytes % 17.9 %; Neutrophils # 4.3 K/mcL (1.6-8.9); Platelet Count 484 K/mcL (140-400); Red Blood Count 3.89 M/mcL (3.82-4.97); Red Cell Distribution Width 14.8 % (11.5-14.5); Segmented Neutrophils % 70.8 %
[2016-12-23 06:14] LABS: BUN/Creatinine Ratio 13 (6-26); Blood Urea Nitrogen 8 mg/dL (7-20); Calcium 9.1 mg/dL (8.6-10.8); Carbon Dioxide 16 mEq/L (19-29); Chloride 105 mEq/L (98-109); Glucose 110 mg/dL (70-99); Osmolality,Calculated 281 (280-300); Potassium 3.9 mEq/L (3.5-4.5); Sodium 136 mEq/L (136-145); eGFR For African Americans > 60 (> 60); eGFR For Non-African Americans > 60 (> 60)
[2016-12-23] MEDS: *HR* Heparin 5,000 UNIT/ML VIAL SQ SCH ×2 (06:16→18:39)
[2016-12-23] MEDS: *HR* LORazepam 2 MG/ML VIAL IVP PRN ×2 (07:02→18:39)
[2016-12-23] MEDS ORDERED: Pantoprazole 40 MG VIAL IVP SCH (09:00)
[2016-12-23] MEDS: Magnesium Oxide 400 MG TABLET PO SCH (09:09)
[2016-12-23] MEDS: Milk and Molasses Enema 200 ML RC SCH ×2 (10:32→20:12)
--- NOTE | 2016-12-23 10:51 | Operative Note ---
Date of procedure: 12/18/16 Pre-op diagnosis: Megacolon Post-op diagnosis: same Procedure: Exploratory laparotomy with diverting loop ileostomy followed by manual disimpaction of the rectum and sigmoid Anesthesia: GRISELDA Surgeon: Uzair Arellano Estimated blood loss (cc): 5 Condition: stable Disposition: same day Procedure in Detail: After informed consent, the patient was taken to the operating room placed in the supine position. After adequate sedation anesthesia the abdomen was prepped and draped. A midline incision was made and the abdomen was opened. The rectum was elongated and massively dilated. Her previous anastomosis was identified and found to be patent. There was a significant amount of stool within the rectum that was the feel and form of Jero. 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 Multiple handfuls of stool removed from the rectum with a milking procedure we are able to evacuate 75% of the rectum. There is still significant amount of stool remaining in the ascending colon. A loop of ileum was identified and brought up through the right abdominal wall. Once this was completed the midline was closed with looped PDS suture times 2. The skin was closed with debbie. The terminal ileum was matured as a loop ileostomy. It was matured with 3-0 Vicryl suture. She tolerated the procedure well. She was taken recovery in stable condition.
--- NOTE | 2016-12-23 12:07 | General Surgery Progress Note ---
Date of Encounter: 12/23/16 Time of Encounter: 12:00 - Assessment and Plan (1) Fecal impaction of colon Current Visit: No Status: Chronic Postoperative day #5 Exploratory laparotomy with diverting loop ileostomy followed by manual disimpaction of the rectum and sigmoid with Dr. Arellano Advance to soft diet IV fluids at 50 mL's per hour Supportive care and pain control Ostomy care daily Wound care consult for ileostomy teaching- Clare Madrigal notified Increase activity as tolerated PPI therapy BID- added protonix back due to significant symptoms of GERD, also added pepcid BID Milk and Molasses enema BID to clear colon from residual impacted stool- patient refused yesterday (2) Anxiety Current Visit: No Status: Chronic Ativan as needed for anxiety (3) Hypomagnesemia Current Visit: No Status: Acute Magnesium supplementation daily (4) DVT prophylaxis Current Visit: No Status: Acute Heparin 5000 units subcutaneous twice daily for DVT prophylaxis Ambulating hallways 3 times a day with assistance Subjective Patient reports: still having pain, voiding w/o difficulty, flatus, bowel movement (via ileostomy), nausea, vomiting, afebrile, other (Patient reports that she has been unable to eat or drink anything over the past 24 hours due to significant increase in nausea and vomiting. She states that this started after we stopped her Protonix and switched her to omeprazole. She reports symptoms of acid reflux.) Objective Vital Signs - Last 8 Hours Temp Pulse Resp BP Pulse Ox 12/23/16 11:32 98.7 F 95 16 104/67 96 12/23/16 07:00 99.5 F 86 16 98/67 96 12/23/16 04:52 98.9 F 95 17 116/80 97 Intake and Output 12/22/16 12/23/16 12/23/16 23:59 07:59 15:59 Intake Total 0 / 0 0 / 0 0 / 0 Output Total 500 / 500 500 / 500 0 / 0 Balance -500 / -500 -500 / -500 0 / 0 Intake: Oral 0 / 0 0 / 0 0 / 0 Output: Urine 0 / 0 500 / 500 0 / 0 Stool 200 / 200 0 / 0 0 / 0 Emesis 300 / 300 Other: Meal Breakfast Percent of Meal Consumed 0% Stool Size Small Stool Consistency liquid - General physical appearance well developed, well nourished, no distress - Eyes normal ocular movement - ENT normal mucosa, atraumatic, normocephalic - Neck Neck exam: trachea midline - Respiratory normal respiratory effort, clear to auscultation - Cardiovascular Cardiovascular exam: Present: RRR - Abdomen Abdomen: Present: bowel sounds present, soft, tender (Expected postoperative tenderness), wound (Ileostomy is pink and moist with liquid stool noted, positive flatus) - Neurologic CN 2-12 grossly intact - Musculoskeletal normal gait, normal posture - Psychiatric oriented to time, oriented to person, oriented to place, speech is normal, memory intact - Labs 12/23/16 05:37 12/23/16 05:37 Diabetes panel 12/23/16 Range/Units 05:37 Sodium 136 (136-145) mEq/L Potassium 3.9 (3.5-4.5) mEq/L Chloride 105 (98-109) mEq/L Carbon Dioxide 16 L (19-29) mEq/L BUN 8 (7-20) mg/dL Creatinine 0.61 (0.57-1.11) mg/dL Glucose 110 H (70-99) mg/dL Calcium 9.1 (8.6-10.8) mg/dL Calcium panel 12/23/16 Range/Units 05:37 Calcium 9.1 (8.6-10.8) mg/dL Pituitary panel 12/23/16 Range/Units 05:37 Sodium 136 (136-145) mEq/L Potassium 3.9 (3.5-4.5) mEq/L Chloride 105 (98-109) mEq/L Carbon Dioxide 16 L (19-29) mEq/L BUN 8 (7-20) mg/dL Creatinine 0.61 (0.57-1.11) mg/dL Glucose 110 H (70-99) mg/dL Calcium 9.1 (8.6-10.8) mg/dL Adrenal panel 12/23/16 Range/Units 05:37 Sodium 136 (136-145) mEq/L Potassium 3.9 (3.5-4.5) mEq/L Chloride 105 (98-109) mEq/L Carbon Dioxide 16 L (19-29) mEq/L BUN 8 (7-20) mg/dL Creatinine 0.61 (0.57-1.11) mg/dL Glucose 110 H (70-99) mg/dL Calcium 9.1 (8.6-10.8) mg/dL - VTE Documentation of Mechanical Device: Intermittent pneumatic compression device Consult Discharge Plan - Plan Referrals: NONE,PCP [Primary Care Provider] - - Attending Attestation For this encounter, I have reviewed the OBSERVATORY DIRECTOR or PA documentation, treatment plan, and medical decision making; and I have had face to face time with this patient.
[2016-12-23] MEDS: Pantoprazole 40 MG VIAL IVP SCH ×2 (12:43→23:34)
[2016-12-23] MEDS: Ondansetron 4 MG/2 ML VIAL IVP PRN ×3 (12:43→23:34)
[2016-12-23] MEDS: 0.9 % Sodium Chloride 1,000 ML IVC SCH (14:57)
[2016-12-23] MEDS: Water for inj. (sterile) 10 ML IV ONE (18:48)
[2016-12-24] MEDS: *HR* Promethazine 25 MG/ML VIAL IVP PRN ×3 (03:00→18:25)
[2016-12-24] MEDS: *HR* HYDROmorphone (PF) 1 MG/ML SYRINGE IVP PRN ×9 (03:03→22:21)
[2016-12-24] MEDS: *HR* LORazepam 2 MG/ML VIAL IVP PRN ×3 (04:01→22:59)
[2016-12-24] MEDS: Ondansetron 4 MG/2 ML VIAL IVP PRN ×3 (06:16→20:27)
[2016-12-24] MEDS: *HR* Heparin 5,000 UNIT/ML VIAL SQ SCH ×2 (06:16→18:29)
[2016-12-24] MEDS: Magnesium Oxide 400 MG TABLET PO SCH (08:31)
[2016-12-24] MEDS: Famotidine 20 MG TABLET PO SCH (08:31)
--- NOTE | 2016-12-24 10:14 | General Surgery Progress Note ---
<DeborahKo - Last Filed: 12/24/16 16:51> Date of Encounter: 12/24/16 Time of Encounter: 10:00 - Assessment and Plan (1) Fecal impaction of colon Status: Chronic Post-op day #6 Exploratory laparotomy with diverting loop ileostomy with Dr. Arellano Patient tolerating clear diet but unable to tolerate soft diet secondary to emesis. Continue soft diet trial Patient refused enema this morning secondary to emesis. She states that she will have it done after PO intake at noon. IV fluids at 50 ml/ hr supportive care and pain control ostomy care daily wound care Ambulate TID as tolerated PPI therapy daily (2) Emesis Status: Acute Discontinue pepsid. Patient refusing PO meds 2/2 emesis. Ask her to save emesis for measurement. Qualifiers: Vomiting type: unspecified (3) Anxiety Status: Chronic Ativan as needed (4) DVT prophylaxis Status: Acute Heparin 5000 units subcutaneous twice daily ambulate TID with assistance Subjective Patient reports: no new complaints, feels better, still having pain, pain is less, tolerating liquids well, voiding w/o difficulty, flatus, no bowel movement , nausea, vomiting, afebrile Objective Vital Signs - Last 8 Hours Temp Pulse Resp BP Pulse Ox 12/24/16 07:03 98.9 F 81 14 106/68 96 12/24/16 03:05 98.7 F 80 16 112/76 97 Intake and Output 12/23/16 12/24/16 12/24/16 23:59 07:59 15:59 Intake Total 0 / 0 0 / 0 Output Total 650 / 650 100 / 100 Balance -650 / -650 -100 / -100 Intake: Oral 0 / 0 0 / 0 Output: Urine 650 / 650 0 / 0 Stool 0 / 0 Emesis 100 / 100 - General physical appearance well developed, well nourished, no distress - Eyes normal ocular movement - ENT normal mucosa, atraumatic, normocephalic - Neck Neck exam: no masses, no bruits, trachea midline - Respiratory normal expansion, normal respiratory effort, clear to percussion, clear to auscultation - Cardiovascular Cardiovascular exam: Present: RRR, no murmurs/rubs/gallops - Abdomen Abdomen: Present: bowel sounds present, soft, tender, wound (Ileostomy is edematous with liquid stool and flatus. ) - Incision Incision: Present: clean and dry, intact - Neurologic CN 2-12 grossly intact - Labs 12/23/16 05:37 12/23/16 05:37 - VTE Documentation of Mechanical Device: Intermittent pneumatic compression device Consult Discharge Plan - Plan Additional Instructions: #1 may shower, no tub bath or swimming for 2 weeks #2 wash incisions with soap and water and pat dry daily #3 no lifting, pushing, pulling more than 15 pounds for the next 6 weeks #4 no driving until off narcotics for 24 hours and able to safely react in the car #5 may climb stairs Ileostomy care- empty bag 2-3 times daily or when one third full. Change appliance every 5-7 days and as needed if leaking. Referrals: Uzair Arellano DO [Partnered Physician] - 01/05/17 2:50 pm (Surgery follow-up) NONE,PCP [Primary Care Provider] - Prescriptions: Ibuprofen [Motrin] 800 mg PO Q8HR #50 tablet <Uzair Arellano - Last Filed: 12/29/16 16:04> Date of Encounter: 12/29/16 Objective - Labs 12/25/16 03:04 12/23/16 05:37 - Attending Attestation I examined this patient and my medical decision-making was reviewed with the Resident Physician. I agree with the documented findings, disposition and treatment plan as described except to the extent set forth below.
[2016-12-24] MEDS: 0.9 % Sodium Chloride 1,000 ML IVC SCH (11:47)
[2016-12-24] MEDS: Pantoprazole 40 MG VIAL IVP SCH (11:49)
[2016-12-24] MEDS: Water for inj. (sterile) 10 ML IV ONE (13:51)
[2016-12-24] MEDS: Milk and Molasses Enema 200 ML RC SCH ×2 (13:53→22:14)
[2016-12-25] MEDS: Pantoprazole 40 MG VIAL IVP SCH ×2 (00:28→12:33)
[2016-12-25] MEDS: *HR* HYDROmorphone (PF) 1 MG/ML SYRINGE IVP PRN ×5 (00:33→12:23)
[2016-12-25 03:13] LABS: Basophils % 0.1 %; Eosinophils # 0.1 K/mcL (0.0-0.6); Hematocrit 28.5 % (35.3-44.9); Hemoglobin 9.2 g/dL (11.5-15.4); Immature Granulocytes % 0.3 % (0-4); Lymphocytes # 2.2 K/mcL (0.6-4.6); Lymphocytes % 31.9 %; Mean Corpuscular HGB Conc 32.3 g/dL (31.6-35.5); Mean Corpuscular Hemoglobin 26.5 pg (28.0-33.3); Mean Corpuscular Volume 82.1 fL (83.0-100.0); Mean Platelet Volume 8.4 fL (9.4-12.4); Monocytes % 14.8 %; Neutrophils # 3.5 K/mcL (1.6-8.9); Platelet Count 435 K/mcL (140-400); Red Blood Count 3.47 M/mcL (3.82-4.97); Red Cell Distribution Width 14.7 % (11.5-14.5); Segmented Neutrophils % 50.9 %
[2016-12-25] MEDS: Ondansetron 4 MG/2 ML VIAL IVP PRN ×2 (04:06→10:01)
[2016-12-25] MEDS: *HR* Heparin 5,000 UNIT/ML VIAL SQ SCH (06:12)
[2016-12-25] MEDS: *HR* Promethazine 25 MG/ML VIAL IVP PRN ×2 (06:12→12:24)
[2016-12-25 07:17] VITALS: BP 104/68
[2016-12-25] MEDS: Magnesium Oxide 400 MG TABLET PO SCH (09:52)
[2016-12-25] MEDS: 0.9 % Sodium Chloride 1,000 ML IVC SCH ×2 (09:54)
--- NOTE | 2016-12-25 10:24 | Discharge Summary ---
<Ko Cabrera - Last Filed: 12/25/16 10:23> Date of Encounter: 12/25/16 Time of Encounter: 10:00 - Discharge Diagnosis (1) Fecal impaction of colon Status: Chronic Comments: Resolved (2) Emesis Status: Acute Qualifiers: Vomiting type: unspecified (3) Anxiety Status: Chronic (4) DVT prophylaxis Status: Acute - Discharge Medications Prescriptions: OxyCODONE/APAP 10/325 [Percocet 10/325 MG] 1 each PO Q6HR PRN #30 tablet PRN Reason: Pain Ibuprofen [Motrin] 800 mg PO Q8HR #50 tablet Home Medications: ALPRAZolam [Xanax 1 MG Tablet] 1 mg PO TID PRN 08/27/16 [History] Sertraline [Zoloft] 50 mg PO DAILY 08/27/16 [History] Ibuprofen [Motrin] 800 mg PO Q8HR #50 tablet 12/25/16 [Rx] OxyCODONE/APAP 10/325 [Percocet 10/325 MG] 1 each PO Q6HR PRN #30 tablet [Rx] Allergies/Adverse Reactions: Allergies doxycycline Adverse Reaction (Verified 12/18/16 08:19) Vomiting ketorolac [From Toradol] Adverse Reaction (Verified 12/18/16 08:19) makes her restless General Surgery Exam Initial Vital Signs Temp Pulse Resp BP Pulse Ox 98.5 F 97 16 113/80 100 12/17/16 21:19 12/17/16 21:19 12/17/16 21:19 12/17/16 21:19 12/17/16 21:19 Date of admission: 12/18/16 14:07 Primary care physician: PCP NONE Consults: 12/19/16 18:36 Consult to Wound Care [CONS] Routine Reason for Consult: diverting ileostomy Call Completed: No Anticipated date of discharge: 12/25/16 - Patient Status Disposition: Home, Self-Care Condition: Good - Discharge Instructions Follow Up With: NONE,PCP [Primary Care Provider] - Uzair Arellano DO [Partnered Physician] - 01/05/17 2:50 pm (Surgery follow-up) Additional Instructions: #1 may shower, no tub bath or swimming for 2 weeks #2 wash incisions with soap and water and pat dry daily #3 no lifting, pushing, pulling more than 15 pounds for the next 6 weeks #4 no driving until off narcotics for 24 hours and able to safely react in the car #5 may climb stairs Ileostomy care- empty bag 2-3 times daily or when one third full. Change appliance every 5-7 days and as needed if leaking. - Hospital Course Hospital course: Ms. Gracia is a 31 year old female - Time Spent with Patient Total time spent providing and/or coordinating discharge services: Labs on day of discharge: Labs from last 24 hours 12/25/16 12/25/16 03:04 03:04 WBC 6.9 RBC 3.47 L Hgb 9.2 L Hct 28.5 L MCV 82.1 L MCH 26.5 L MCHC 32.3 RDW 14.7 H Plt Count 435 H MPV 8.4 L Immature Gran % 0.3 Seg Neutrophils % 50.9 Lymphocytes % 31.9 Monocytes % 14.8 Eosinophils % 2.0 Basophils % 0.1 Neutrophils # 3.5 Lymphocytes # 2.2 Monocytes # 1.0 Eosinophils # 0.1 Basophils # 0.0 B-Natriuretic Peptide 18 <Leona Santos - Last Filed: 12/25/16 11:36> Date of Encounter: 12/25/16 - Discharge Diagnosis (1) Fecal impaction of colon Priority: Primary Status: Resolved (2) Anxiety Priority: Secondary Status: Chronic (3) Hypomagnesemia Priority: Secondary Status: Resolved General Surgery Exam Initial Vital Signs Temp Pulse Resp BP Pulse Ox 98.5 F 97 16 113/80 100 12/17/16 21:19 12/17/16 21:19 12/17/16 21:19 12/17/16 21:19 12/17/16 21:19 - General physical appearance well developed, well nourished, no distress - Eyes normal ocular movement - ENT normal mucosa, atraumatic, normocephalic - Neck trachea midline - Respiratory normal expansion, normal respiratory effort, clear to auscultation - Cardiovascular Cardiovascular exam: Present: RRR - Abdomen Abdomen general surgery: Present: bowel sounds present, soft, tender (Expected postoperative tenderness), wound (Ileostomy is pink and moist with liquid stool noted as well as flatus) - Incision Incision: Present: clean and dry, intact - Integumentary Integumentary general surgery: Present: warm and dry - Neurologic Present: CN 2-12 grossly intact - Musculoskeletal Present: normal gait, normal posture - Psychiatric Psychiatric general surgery: Present: appropriate, oriented to person, oriented to place, oriented to time, speech is normal, memory intact Date of admission: 12/18/16 14:07 Primary care physician: PCP NONE Consults: 12/19/16 18:36 Consult to Wound Care [CONS] Routine Reason for Consult: diverting ileostomy Call Completed: No Discharging clinician: Uzair Santos) - Patient Status Functional capacity at discharge: independent ambulation Overall status at discharge: patient is progressing back to baseline - Diet and Activity Activity: other (See additional instructions above) Diet: advance to your usual diet - Hospital Course Hospital course: Ms. Gracia is a 31 year old female presented to the hospital with complaints of abdominal pain with associated nausea/vomiting. The patient was taken to the operating room for exploratory laparotomy and diverting loop ileostomy and fecal disimpaction. She remained nothing by mouth on IV fluids while awaiting return of bowel function. Her bowel function has now returned and she is having good output from her ileostomy. She did experience some postoperative nausea and vomiting but she states this is resolved. She is tolerating liquids without nausea or vomiting, her pain is well-controlled, vital signs are stable and she is afebrile, she is voiding in a kneeling without difficulty. She has received ileostomy teaching and states that she is comfortable discharging to home and caring for her ileostomy independently. She was offered home health care but states that she does not need it. We will begin discharge planning and plan for outpatient follow-up in the next 10-14 days. Once the patient has recovered from her current surgery, we will refer her to [facility] for further workup. - Time Spent with Patient Total time spent providing and/or coordinating discharge services: Less than 30 minutes Labs on day of discharge: Labs from last 24 hours 12/25/16 12/25/16 03:04 03:04 WBC 6.9 RBC 3.47 L Hgb 9.2 L Hct 28.5 L MCV 82.1 L MCH 26.5 L MCHC 32.3 RDW 14.7 H Plt Count 435 H MPV 8.4 L Immature Gran % 0.3 Seg Neutrophils % 50.9 Lymphocytes % 31.9 Monocytes % 14.8 Eosinophils % 2.0 Basophils % 0.1 Neutrophils # 3.5 Lymphocytes # 2.2 Monocytes # 1.0 Eosinophils # 0.1 Basophils # 0.0 B-Natriuretic Peptide 18 - Attending Attestation For this encounter, I have reviewed the AVIATION PROGRAM MANAGER or PA documentation, treatment plan, and medical decision making; and I have had face to face time with this patient.
[2016-12-25] MEDS: Milk and Molasses Enema 200 ML RC SCH (12:05)
[2016-12-25] MEDS: *HR* LORazepam 2 MG/ML VIAL IVP PRN (12:45)
== END 2016-12-25 14:25 | disposition home or self-care (01) | DRG 221 ==
LOC: 3ANU 20:51 → EMEROO 20:51 → 3ANU 12-18 01:00
PROVIDERS: ADMIT Surgery; ATTEND Surgery

== ENCOUNTER 2016-12-29 00:41 | Inpatient (IN) ==
[2016-12-29] MEDS ORDERED: 0.9 % Sodium Chloride 1,000 ML IVC ONE ×5 (03:58→11:35)
--- NOTE | 2016-12-29 03:58 | Emergency Department Note ---
Disposition Clinical Impression: SBO (small bowel obstruction), S/P ileostomy Disposition: Still a Patient Condition: Good Referrals: NONE,PCP [Primary Care Provider] - Forms: ED Satisfaction Letter Time of Disposition: 07:15 Abdominal Pain HPI - General Chief Complaint: ED Nausea/Vomiting/Diarrhea Stated Complaint: surgery, unable to keep anything down. Time Seen by Provider: 12/29/16 03:31 Nursing Notes Reviewed: Yes Vital Signs Reviewed: Yes - History of Present Illness HPI Narrative: 31-year-old female presents with nausea and vomiting. She states she has a ostomy bag, and had noticed that he had started to leak and still had covered her incision site. She states that the bag leaked because the adhesive part covered the suture debbie had constant not to adhere properly. Since that she has felt feverish. She mentions she had to have a large portion of her colon removed. She states she has had GI issues since a child, she tells me that doctors are not sure is causing her GI issues. She states that she feels feverish and dehydrated. She denies any vomiting, bloody stools. Pain Scale: 7 - Related Data Home Medications Medication Instructions Recorded Confirmed ALPRAZolam [Xanax 1 MG Tablet] 1 mg PO TID PRN 08/27/16 12/18/16 Sertraline [Zoloft] 50 mg PO DAILY 08/27/16 12/18/16 Previous Rx's Medication Instructions Recorded Ibuprofen [Motrin] 800 mg PO Q8HR #50 tablet 12/25/16 OxyCODONE/APAP 10/325 [Percocet 1 each PO Q6HR PRN #30 tablet 12/25/16 10/325 MG] Allergies Allergy/AdvReac Type Severity Reaction Status Date / Time doxycycline AdvReac Vomiting Verified 12/18/16 08:19 ketorolac [From Toradol] AdvReac makes her Verified 12/18/16 08:19 restless All systems ED: reviewed and negative except as stated. Constitutional: Reports: as per HPI ENT ED: Denies: ear pain Respiratory: Denies: dyspnea Gastrointestinal: Denies: abdominal pain Genitourinary: Denies: dysuria Musculoskeletal: Denies: back pain Integumentary: Denies: rash Neurological: Denies: headache, weakness, numbness, paresthesias Psychiatric: Denies: anxiety Endocrine: Denies: fatigue Hematological/Lymphatic: Denies: easy bleeding Allergic/Immunologic: Denies: facial swelling Abdominal Pain PMH - Past Medical History Medical history: Reports: migraine Female Surgical History: Reports: appendectomy, cholecystectomy, other BI SOLUTIONS ARCHITECT history: Reports: no BI SOLUTIONS ARCHITECT history Psychiatric history: Reports: anxiety, depression - Social History Smoking status: Current every day smoker Alcohol use: Reports: none Drug use: Reports: none Physical Exam - General Limitations: no limitations General appearance: alert, in no apparent distress - Head Head exam: normocephalic - Eye Eye exam: Present: EOMI. Absent: conjunctival injection - ENT ENT exam: normal oropharynx - Neck Neck exam: Present: normal inspection, full ROM - Chest Chest inspection: Present: normal inspection, symmetric chest wall rise - Respiratory Respiratory exam: Present: normal lung sounds bilaterally. Absent: respiratory distress, wheezes, stridor, accessory muscle use, prolonged expiratory phase - Cardiovascular Cardiovascular exam: Present: regular rate, tachycardia - Abdominal Exam Abdominal exam: Present: tenderness, guarding, diminished bowel sounds, scar - Extremities Exam Extremities exam: Present: normal inspection, full ROM - Back Exam Back exam: Present: full ROM - Neurological Exam Neurological exam: Present: alert - Psychiatric Psychiatric exam: Present: normal affect, normal mood - Skin Skin exam: Present: warm, dry, intact. Absent: rash, cyanosis, diaphoresis, pallor Course Course Narrative: 31-year-old female, 5 day status post loop ileostomy, presents with worsening pain. History of obstruction. 2 day h/o of pain, n/v/ Ostomy bag had opened and covered stool over patient's surgical site. Pallor. abdomen tender. Concerning for obstruction. Analgesics and antemetics ordered. Workup initiated. Patient discussed with Dr. Crawford who also had FaceTime with patient and agreed with work up. - Reevaluation(s) Reevaluation #1: CT scan shows evidence of small bowel obstruction with transition site at the ileostomy. We will plan NG tube, and surgery consult Time: 05:30 Reevaluation #2: Due to shift change, Care of this patient will be transferred over to [facility] Arter Jes Valencia PA-C. Patient was discussed with Lenin. Please see his further documentation for details. Patient was discussed with Dr. Crawford again as well. At This time patient is awaiting CT with oral contrast. Time: 07:14 - Consultations Consultation #1: Patient was discussed with on-call surgeon Dr. Arellano, who had requested CT with oral contrast and to have him paged him again. Time: 07:08 Vital Signs Temperature 98.1 F 12/29/16 01:16 Pulse Rate 118 12/29/16 01:16 Respiratory Rate 18 12/29/16 01:16 Blood Pressure 108/73 12/29/16 01:16 O2 Sat by Pulse Oximetry 100 12/29/16 01:16 Temperature 98.1 F 12/29/16 01:16 Pulse Rate 108 12/29/16 06:46 Respiratory Rate 16 12/29/16 06:46 Blood Pressure 126/91 12/29/16 06:46 O2 Sat by Pulse Oximetry 98 12/29/16 06:46 Oxygen Delivery Oxygen Delivery Room Air Abdominal Pain - Lab Data Result diagrams: 12/29/16 04:09 12/29/16 04:09 Lab Results 12/29/16 12/29/16 12/29/16 Range/Units 04:09 04:09 04:53 WBC 16.0 H D (4.3-11.1) K/mcL RBC 4.89 (3.82-4.97) M/mcL Hgb 13.0 D (11.5-15.4) g/dL Hct 42.4 (35.3-44.9) % MCV 86.7 (83.0-100.0) fL MCH 26.6 L (28.0-33.3) pg MCHC 30.7 L (31.6-35.5) g/dL RDW 15.0 H (11.5-14.5) % Plt Count 725 H D (140-400) K/mcL MPV 8.6 L (9.4-12.4) fL Immature Gran % 0.6 (0-4) % Seg Neutrophils % 86.4 % Lymphocytes % 4.5 % Monocytes % 8.2 % Eosinophils % 0.0 % Basophils % 0.3 % Neutrophils # 13.8 H (1.6-8.9) K/mcL Lymphocytes # 0.7 (0.6-4.6) K/mcL Monocytes # 1.3 (0.0-1.3) K/mcL Eosinophils # 0.0 (0.0-0.6) K/mcL Basophils # 0.1 (0.0-0.2) K/mcL Platelet Estimate Normal (Normal) Sodium 139 (136-145) mEq/L Potassium 3.4 L (3.5-4.5) mEq/L Chloride 99 (98-109) mEq/L Carbon Dioxide 24 (19-29) mEq/L BUN 12 (7-20) mg/dL Creatinine 0.75 (0.57-1.11) mg/dL Est GFR ( Amer) > 60 (> 60) Est GFR (Non-Af Amer) > 60 (> 60) BUN/Creatinine Ratio 16 (6-26) Glucose 194 H (70-99) mg/dL Calculated Osmolality 293 (280-300) Lactic Acid 1.7 (0.5-2.2) mmol/L Calcium 10.1 (8.6-10.8) mg/dL Attestation Statement - Attestation Attestation: I, Artem Crawford DO have provided [id number] time during the care of this patient. Detailed review the presentation, symptoms, medical history were discussed and reviewed with the mid-level provider aRmana Honeycutt PA-C/ARCHITECTURAL ENGINEER. Medical intervention labs and imaging studies were reviewed in detail. See full documentation of physical exam and course of care in the mid-level provider 's note. I agree with the determined course of care, medical interventio,n and disposition put forth by the mid-level provider. See below documentation for changes or alterations in documentation. 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 She has feculent emesis at this time. She had a diverting colostomy performed within the last week. Patient had CT imaging labs pain control and nausea medication given here and in surgical consultation which ultimately has resulted. Patient will need admission to hospital afterwards. Definitive management be completed by the mid -level provider. Patient is otherwise stable. Patient has small bowel projection based on CT imaging. Recommendations and the surgeon to be considered. Admission process to be completed.
[2016-12-29] MEDS ORDERED: *HR* HYDROmorphone (PF) 1 MG/ML SYRINGE IVP ONE ×7 (04:02→12:41)
[2016-12-29] MEDS ORDERED: Ondansetron 4 MG/2 ML VIAL IVP ONE (04:02)
[2016-12-29 04:19] LABS: Basophils % 0.3 %; Hematocrit 42.4 % (35.3-44.9); Immature Granulocytes % 0.6 % (0-4); Lymphocytes # 0.7 K/mcL (0.6-4.6); Lymphocytes % 4.5 %; Mean Corpuscular HGB Conc 30.7 g/dL (31.6-35.5); Mean Corpuscular Hemoglobin 26.6 pg (28.0-33.3); Mean Corpuscular Volume 86.7 fL (83.0-100.0); Mean Platelet Volume 8.6 fL (9.4-12.4); Monocytes # 1.3 K/mcL (0.0-1.3); Monocytes % 8.2 %; Neutrophils # 13.8 K/mcL (1.6-8.9); Platelet Count 725 K/mcL (140-400); Red Blood Count 4.89 M/mcL (3.82-4.97); Segmented Neutrophils % 86.4 %
[2016-12-29 04:29] LABS: BUN/Creatinine Ratio 16 (6-26); Blood Urea Nitrogen 12 mg/dL (7-20); Calcium 10.1 mg/dL (8.6-10.8); Carbon Dioxide 24 mEq/L (19-29); Chloride 99 mEq/L (98-109); Glucose 194 mg/dL (70-99); Osmolality,Calculated 293 (280-300); Potassium 3.4 mEq/L (3.5-4.5); Sodium 139 mEq/L (136-145); eGFR For African Americans > 60 (> 60); eGFR For Non-African Americans > 60 (> 60)
[2016-12-29 04:39] LABS: Basophils # 0.1 K/mcL (0.0-0.2)
[2016-12-29 05:02] LABS: Platelet Estimate Normal (Normal)
[2016-12-29] MEDS ORDERED: *HR* Promethazine 25 MG/ML VIAL IVP ONE ×4 (05:09→12:41)
[2016-12-29] MEDS ORDERED: Tetracaine/Benzocaine/Butamben 200MG/SPRAY (100SPY/BOT) MM ONE (05:41)
[2016-12-29] MEDS ORDERED: Metoclopramide 10 MG/2 ML VIAL IVP ONE ×3 (08:42→12:30)
[2016-12-29] MEDS ORDERED: *HR* LORazepam 2 MG/ML VIAL IVP ONE ×3 (08:44→12:30)
[2016-12-29 09:12] LABS: Bilirubin,Urine Small (Negative); Blood,Urine Negative (Negative); Clarity,Urine Cloudy (Clear); Color,Urine Dark Yellow (Yellow); Glucose,Urine (UA) 250 mg/dL (Normal); Ketones,Urine 15 mg/dL (Negative); Leukocyte Esterase,Urine Negative (Negative); Nitrite,Urine Negative (Negative); PH,Urine 5.5 pH Units (5.0-8.0); Protein,Urine Trace mg/dL (Neg-Trace); Specific Gravity,Urine > 1.030 (1.010-1.025); Urobilinogen,Urine Normal (Normal)
[2016-12-29 09:14] LABS: Bacteria,Urine Few per hpf (None-Few); Hyaline Casts,Urine None Seen per lpf (None-Few); Squamous Epithelial Cell,Urine Many per lpf (None-Few)
[2016-12-29] MEDS ORDERED: 0.9 % Sodium Chloride 1,000 ML ONE ×2 (09:22→23:01)
[2016-12-29] MEDS ORDERED: *HR* Adenosine 6 MG/2 ML SYRINGE IVP ONE (09:24)
[2016-12-29] MEDS ORDERED: Acetaminophen 650 MG RECTAL SUPP RC ONE (09:40)
--- NOTE | 2016-12-29 09:44 | Emergency Department Note ---
START Narrative - START START: joined case with PA due to deterioration of vitals including tachcardia and complicated surgical history. PAtinet HR elevated to 150-160 it appears to be atrial flutter. My concern is for sepsis. Rectal temperature is 104F. We will start cipro/flagyl/cardizem and IVF and stablize patient. Sepsis is of high concern. Will monitor closely
[2016-12-29 09:52] LABS: C.difficile Toxin A/B by PCR See reflex test (Not detect); Campylobacter by PCR Not detected (Not detect); E. coli O157 by PCR Not detected (Not detect); Enteroaggregative E.coli(EAEC) Not detected (Not detect); Enteropathogenic E.coli(EPEC) Not detected (Not detect); Enterotoxigenic E.coli (ETEC) Not detected (Not detect); Plesiomonas shigelloides PCR Not detected (Not detect); Salmonella PCR Not detected (Not detect); Shig/EnteroinvasiveE coli EIEC Not detected (Not detect); Shigalike tox-prod E coli STEC Not detected (Not detect); Vibrio PCR Not detected (Not detect); Vibrio cholerae PCR Not detected (Not detect); Yersinia enterocolitica PCR Not detected (Not detect)
[2016-12-29 09:53] LABS: Adenovirus F 40/41 PCR Not detected (Not detect); Astrovirus PCR Not detected (Not detect); Cryptosporidium by PCR Not detected (Not detect); Cyclospora cayetanensis PCR Not detected (Not detect); Entamoeba histolytica PCR Not detected (Not detect); Giardia lamblia PCR Not detected (Not detect); Norovirus GI/GII PCR Not detected (Not detect); Rotavirus A PCR Not detected (Not detect); Sapovirus PCR Not detected (Not detect)
--- NOTE | 2016-12-29 10:34 | Emergency Department Note ---
Disposition Clinical Impression: SBO (small bowel obstruction), S/P ileostomy, Intractable nausea and vomiting, C. difficile enteritis Disposition: Admitted As Inpatient Condition: Serious Referrals: NONE,PCP [Primary Care Provider] - Forms: ED Satisfaction Letter Time of Disposition: 10:34 Nausea/Vomiting/Diarrhea HPI - General Chief complaint: ED Nausea/Vomiting/Diarrhea Stated complaint: surgery, unable to keep anything down. Time Seen by Provider: 12/29/16 03:31 Source: patient Mode of arrival: private vehicle Limitations: no limitations Nursing Notes Reviewed: Yes Vital Signs Reviewed: Yes - History of Present Illness Pt Subjective Complaint: nausea, vomiting, abdominal pain - Related Data Home Medications Medication Instructions Recorded Confirmed ALPRAZolam [Xanax 1 MG Tablet] 1 mg PO TID PRN 08/27/16 12/29/16 Sertraline [Zoloft] 50 mg PO DAILY 08/27/16 12/29/16 Previous Rx's Medication Instructions Recorded Ibuprofen [Motrin] 800 mg PO Q8HR #50 tablet 12/25/16 Allergies Allergy/AdvReac Type Severity Reaction Status Date / Time doxycycline AdvReac Vomiting Verified 12/18/16 08:19 ketorolac [From Toradol] AdvReac makes her Verified 12/18/16 08:19 restless Constitutional: Reports: as per HPI ENT ED: Denies: ear pain Respiratory: Denies: dyspnea Gastrointestinal: Denies: abdominal pain Genitourinary: Denies: dysuria Musculoskeletal: Denies: back pain Integumentary: Denies: rash Neurological: Denies: headache, weakness, numbness, paresthesias Psychiatric: Denies: anxiety Endocrine: Denies: fatigue Hematological/Lymphatic: Denies: easy bleeding Allergic/Immunologic: Denies: facial swelling Past Medical History - Past Medical History Medical history: Reports: migraine Surgical history: Reports: appendectomy, cholecystectomy Psychiatric history: Reports: anxiety, depression ASSISTANT FRONT OFFICE MANAGER history: Reports: no ASSISTANT FRONT OFFICE MANAGER history - Social History Smoking Status: Current every day smoker Smokeless Tobacco Status: No Alcohol use: Reports: none Drug use: Reports: none Physical Exam - General Limitations: no limitations General appearance: alert, in no apparent distress Course Course Narrative: Ice and care of this patient from Ramana Silva PA-C @ 0600. The patient had already had laboratory evaluations, a urinalysis and a CT of the abdomen and pelvis. Dr. Arellano from surgery was contacted regarding this patient's care, he requested that we do a repeat CT of the abdomen and pelvis with contrast. We will attempt to give the patient anti-medics, pain medication and have her drink the oral contrast for a repeat study. Patient was unable to tolerate the oral contrast, and was found to be febrile. A 1 g of Tylenol was given as a suppository. I discussed the patient's case with Dr. Arellano, he suggested that we attempt to give the patient oral contrast her NG tube. This proved to be unsuccessful as well. I discussed the patient' s case with the hospitalist, patient does appear to meet SIRS criteria. She became tachycardic and was given Cardizem and additional fluids which did lower her heart rate, however she continued to have severe nausea and vomiting. Patient will be admitted to medicine with a surgical consult. The hospitalist accepts. Dr. Arellano called back and stated that he would consult with the patient, and correlate with internal medicine. Patient was in stable condition when she was taken to the floor. She did continue to be mildly tachycardic, however her temperature did improve. She had no additional episodes of emesis. Antibiotics were being given. Vital Signs Temperature 98.1 F 12/29/16 01:16 Pulse Rate 118 12/29/16 01:16 Respiratory Rate 18 12/29/16 01:16 Blood Pressure 108/73 12/29/16 01:16 O2 Sat by Pulse Oximetry 100 12/29/16 01:16 Temperature 102.3 F H 12/29/16 10:59 Pulse Rate 145 12/29/16 10:59 Respiratory Rate 20 12/29/16 10:59 Blood Pressure 114/79 12/29/16 10:59 O2 Sat by Pulse Oximetry 96 12/29/16 10:59 Oxygen Delivery Oxygen Delivery Room Air Nausea/Vomiting/Diarrhea - Lab Data Lab results reviewed: Yes I reviewed the patient's lab results. Result diagrams: 12/29/16 04:09 12/29/16 04:09 Lab Results 12/29/16 12/29/16 12/29/16 Range/Units 04:09 04:09 04:13 WBC 16.0 H D (4.3-11.1) K/mcL RBC 4.89 (3.82-4.97) M/mcL Hgb 13.0 D (11.5-15.4) g/dL Hct 42.4 (35.3-44.9) % MCV 86.7 (83.0-100.0) fL MCH 26.6 L (28.0-33.3) pg MCHC 30.7 L (31.6-35.5) g/dL RDW 15.0 H (11.5-14.5) % Plt Count 725 H D (140-400) K/mcL MPV 8.6 L (9.4-12.4) fL Immature Gran % 0.6 (0-4) % Seg Neutrophils % 86.4 % Lymphocytes % 4.5 % Monocytes % 8.2 % Eosinophils % 0.0 % Basophils % 0.3 % Neutrophils # 13.8 H (1.6-8.9) K/mcL Lymphocytes # 0.7 (0.6-4.6) K/mcL Monocytes # 1.3 (0.0-1.3) K/mcL Eosinophils # 0.0 (0.0-0.6) K/mcL Basophils # 0.1 (0.0-0.2) K/mcL Platelet Estimate Normal (Normal) Sodium 139 (136-145) mEq/L Potassium 3.4 L (3.5-4.5) mEq/L Chloride 99 (98-109) mEq/L Carbon Dioxide 24 (19-29) mEq/L BUN 12 (7-20) mg/dL Creatinine 0.75 (0.57-1.11) mg/dL Est GFR ( Amer) > 60 (> 60) Est GFR (Non-Af Amer) > 60 (> 60) BUN/Creatinine Ratio 16 (6-26) Glucose 194 H (70-99) mg/dL Calculated Osmolality 293 (280-300) Lactic Acid (0.5-2.2) mmol/L Calcium 10.1 (8.6-10.8) mg/dL Urine Color (Yellow) Urine Clarity (Clear) Urine pH (5.0-8.0) pH Units Ur Specific Cascade (1.010-1.025) Urine Protein (Neg-Trace) mg/dL Urine Glucose (UA) (Normal) mg/dL Urine Ketones (Negative) mg/dL Urine Blood (Negative) Urine Nitrite (Negative) Urine Bilirubin (Negative) Urine Urobilinogen (Normal) mg/dL Ur Leukocyte Esterase (Negative) Urine Microscopic RBC (0-3) per hpf Urine Microscopic WBC (0-3) per hpf Ur Squamous Epith Cells (None-Few) per lpf Urine Bacteria (None-Few) per hpf Hyaline Casts (None-Few) per lpf Ur Culture Indicated? (NO) Urine Test (Negative) Stl C. cayetanensis PCR Not detected (Not detect) Stool Rotavirus A PCR Not detected (Not detect) Stl Adenov F 40/41 PCR Not detected (Not detect) Stool Astrovirus (PCR) Not detected (Not detect) Stool Campylobacter PCR Not detected (Not detect) Stl C. diff Tox B Gene (Negative) Stl C. diff Tox A/B PCR See reflex test A (Not detect) Stool Cryptosporidium PCR Not detected (Not detect) Stl Sh Tox Pr E STEC PCR Not detected (Not detect) Stool E coli O157 PCR Not detected (Not detect) Stl Enterotoxigenic E PCR Not detected (Not detect) Stool EPEC (PCR) Not detected (Not detect) Stool EAEC (PCR) Not detected (Not detect) Stl E. histolytica PCR Not detected (Not detect) Stool Giardia Lamblia PCR Not detected (Not detect) Stool Salmonella PCR Not detected (Not detect) Stool Sapovirus (PCR) Not detected (Not detect) Stl P. shigelloides PCR Not detected (Not detect) Stl Shigella/EIEC PCR Not detected (Not detect) St Y.enterocolitica PCR Not detected (Not detect) Stool Vibrio (PCR) Not detected (Not detect) Stl Vibrio cholerae PCR Not detected (Not detect) Stl Norovirus GI/GII PCR Not detected (Not detect) Stl GI Panel (PCR) Com See below 12/29/16 12/29/16 12/29/16 Range/Units 04:13 04:53 09:03 WBC (4.3-11.1) K/mcL RBC (3.82-4.97) M/mcL Hgb (11.5-15.4) g/dL Hct (35.3-44.9) % MCV (83.0-100.0) fL MCH (28.0-33.3) pg MCHC (31.6-35.5) g/dL RDW (11.5-14.5) % Plt Count (140-400) K/mcL MPV (9.4-12.4) fL Immature Gran % (0-4) % Seg Neutrophils % % Lymphocytes % % Monocytes % % Eosinophils % % Basophils % % Neutrophils # (1.6-8.9) K/mcL Lymphocytes # (0.6-4.6) K/mcL Monocytes # (0.0-1.3) K/mcL Eosinophils # (0.0-0.6) K/mcL Basophils # (0.0-0.2) K/mcL Platelet Estimate (Normal) Sodium (136-145) mEq/L Potassium (3.5-4.5) mEq/L Chloride (98-109) mEq/L Carbon Dioxide (19-29) mEq/L BUN (7-20) mg/dL Creatinine (0.57-1.11) mg/dL Est GFR ( Amer) (> 60) Est GFR (Non-Af Amer) (> 60) BUN/Creatinine Ratio (6-26) Glucose (70-99) mg/dL Calculated Osmolality (280-300) Lactic Acid 1.7 (0.5-2.2) mmol/L Calcium (8.6-10.8) mg/dL Urine Color Dark Yellow (Yellow) Urine Clarity Cloudy A (Clear) Urine pH 5.5 (5.0-8.0) pH Units Ur Specific Cascade > 1.030 H (1.010-1.025) Urine Protein Trace (Neg-Trace) mg/dL Urine Glucose (UA) 250 H (Normal) mg/dL Urine Ketones 15 H (Negative) mg/dL Urine Blood Negative (Negative) Urine Nitrite Negative (Negative) Urine Bilirubin Small H (Negative) Urine Urobilinogen Normal (Normal) mg/dL Ur Leukocyte Esterase Negative (Negative) Urine Microscopic RBC 3-5 H (0-3) per hpf Urine Microscopic WBC 5-15 H (0-3) per hpf Ur Squamous Epith Cells Many H (None-Few) per lpf Urine Bacteria Few (None-Few) per hpf Hyaline Casts None Seen (None-Few) per lpf Ur Culture Indicated? YES A (NO) Urine Test (Negative) Stl C. cayetanensis PCR (Not detect) Stool Rotavirus A PCR (Not detect) Stl Adenov F 40/41 PCR (Not detect) Stool Astrovirus (PCR) (Not detect) Stool Campylobacter PCR (Not detect) Stl C. diff Tox B Gene Positive (Negative) Stl C. diff Tox A/B PCR (Not detect) Stool Cryptosporidium PCR (Not detect) Stl Sh Tox Pr E STEC PCR (Not detect) Stool E coli O157 PCR (Not detect) Stl Enterotoxigenic E PCR (Not detect) Stool EPEC (PCR) (Not detect) Stool EAEC (PCR) (Not detect) Stl E. histolytica PCR (Not detect) Stool Giardia Lamblia PCR (Not detect) Stool Salmonella PCR (Not detect) Stool Sapovirus (PCR) (Not detect) Stl P. shigelloides PCR (Not detect) Stl Shigella/EIEC PCR (Not detect) St Y.enterocolitica PCR (Not detect) Stool Vibrio (PCR) (Not detect) Stl Vibrio cholerae PCR (Not detect) Stl Norovirus GI/GII PCR (Not detect) Stl GI Panel (PCR) [facility] 12/29/16 Range/Units 09:03 WBC (4.3-11.1) K/mcL RBC (3.82-4.97) M/mcL Hgb (11.5-15.4) g/dL Hct (35.3-44.9) % MCV (83.0-100.0) fL MCH (28.0-33.3) pg MCHC (31.6-35.5) g/dL RDW (11.5-14.5) % Plt Count (140-400) K/mcL MPV (9.4-12.4) fL Immature Gran % (0-4) % Seg Neutrophils % % Lymphocytes % % Monocytes % % Eosinophils % % Basophils % % Neutrophils # (1.6-8.9) K/mcL Lymphocytes # (0.6-4.6) K/mcL Monocytes # (0.0-1.3) K/mcL Eosinophils # (0.0-0.6) K/mcL Basophils # (0.0-0.2) K/mcL Platelet Estimate (Normal) Sodium (136-145) mEq/L Potassium (3.5-4.5) mEq/L Chloride (98-109) mEq/L Carbon Dioxide (19-29) mEq/L BUN (7-20) mg/dL Creatinine (0.57-1.11) mg/dL Est GFR ( Amer) (> 60) Est GFR (Non-Af Amer) (> 60) BUN/Creatinine Ratio (6-26) Glucose (70-99) mg/dL Calculated Osmolality (280-300) Lactic Acid (0.5-2.2) mmol/L Calcium (8.6-10.8) mg/dL Urine Color (Yellow) Urine Clarity (Clear) Urine pH (5.0-8.0) pH Units Ur Specific Cascade (1.010-1.025) Urine Protein (Neg-Trace) mg/dL Urine Glucose (UA) (Normal) mg/dL Urine Ketones (Negative) mg/dL Urine Blood (Negative) Urine Nitrite (Negative) Urine Bilirubin (Negative) Urine Urobilinogen (Normal) mg/dL Ur Leukocyte Esterase (Negative) Urine Microscopic RBC (0-3) per hpf Urine Microscopic WBC (0-3) per hpf Ur Squamous Epith Cells (None-Few) per lpf Urine Bacteria (None-Few) per hpf Hyaline Casts (None-Few) per lpf Ur Culture Indicated? (NO) Urine Test Negative (Negative) Stl C. cayetanensis PCR (Not detect) Stool Rotavirus A PCR (Not detect) Stl Adenov F 40/41 PCR (Not detect) Stool Astrovirus (PCR) (Not detect) Stool Campylobacter PCR (Not detect) Stl C. diff Tox B Gene (Negative) Stl C. diff Tox A/B PCR (Not detect) Stool Cryptosporidium PCR (Not detect) Stl Sh Tox Pr E STEC PCR (Not detect) Stool E coli O157 PCR (Not detect) Stl Enterotoxigenic E PCR (Not detect) Stool EPEC (PCR) (Not detect) Stool EAEC (PCR) (Not detect) Stl E. histolytica PCR (Not detect) Stool Giardia Lamblia PCR (Not detect) Stool Salmonella PCR (Not detect) Stool Sapovirus (PCR) (Not detect) Stl P. shigelloides PCR (Not detect) Stl Shigella/EIEC PCR (Not detect) St Y.enterocolitica PCR (Not detect) Stool Vibrio (PCR) (Not detect) Stl Vibrio cholerae PCR (Not detect) Stl Norovirus GI/GII PCR (Not detect) Stl GI Panel (PCR) Com - Radiology Data Radiology results reviewed: Yes I reviewed the patient's radiology results. - EKG Data EKG attestation: Yes I reviewed and interpreted this EKG.
[2016-12-29] MEDS ORDERED: MetroNIDAZOLE 500 MG/100 ML 500 MG/100 ML BAG IVPB ONE (11:30)
[2016-12-29] MEDS ORDERED: Pantoprazole 40 MG VIAL IVP SCH (12:15)
[2016-12-29] MEDS ORDERED: Naloxone 0.4 MG/ML INJ IVP PRN ×2 (12:15→22:57)
[2016-12-29] MEDS ORDERED: *HR* Promethazine 25 MG/ML VIAL IVP PRN ×2 (12:15→15:01)
[2016-12-29] MEDS ORDERED: *HR* Dextrose 50 % in Water (Syg) 50 ML SYRINGE IVP PRN ×2 (12:25→22:57)
[2016-12-29] MEDS ORDERED: Dextrose Gel 15 GM PO PRN ×4 (12:25→22:57)
[2016-12-29] MEDS ORDERED: D5% in Water 1,000 ML IVC PRN ×2 (12:25→22:57)
[2016-12-29] MEDS ORDERED: ALPRAZolam 1 MG TABLET PO PRN (12:27)
[2016-12-29] MEDS ORDERED: *HR* HYDROmorphone (PF) 1 MG/ML SYRINGE ONE (12:42)
[2016-12-29] MEDS ORDERED: *HR* Promethazine 25 MG/ML VIAL ONE ×2 (12:42→15:05)
[2016-12-29] MEDS ORDERED: 0.9 % Sodium Chloride 1,000 ML IVC SCH ×3 (12:45→22:57)
--- NOTE | 2016-12-29 13:02 | Internal Med History&Physical ---
<Nicola Ying - Last Filed: 12/29/16 13:44> Date of Encounter: 12/29/16 Time of Encounter: 11:30 Assessment and Plan (1) Sepsis Current visit: Yes Status: Acute Patient presents with WBC of 16.0, temperature of 102.3 F, and HR in 140s which meets SIRS criteria. Lactic acid ordered. Blood culture and urine culture ordered. Patient received IV fluids in ED and fluids to be continued. Patient received PO cardizem in ED for HR control which was ineffective, so cardizem drip initiated and will be continued as long as patient is tachycardic. Rectal tylenol 650 mg ordered Q6 PRN. IV ciprofloxacin and IV flagyl ordered for infection control. Follow-up labs ordered to monitor patient's WBCs and electrolytes. Qualifiers: Sepsis type: sepsis due to unspecified organism Qualified Code(s): A41.9 - Sepsis, unspecified organism (2) Intractable nausea and vomiting Current visit: Yes Status: Acute Patient presents with intractable nausea and vomiting for the past 2-3 days. IVP phenergan PRN ordered. IVP Protonix 40 mg daily ordered. Patient to be NPO. Will monitor I&O and daily weight. Electrolyte protocol ordered. Will monitor follow-up labs. Qualifiers: Vomiting type: cyclical vomiting Qualified Code(s): G43.A1 - Cyclical vomiting, intractable (3) C. difficile enteritis Current visit: Yes Status: Acute Patient found to be positive for C. diff. Will administer IV ciprofloxacin and IV flagyl for infection coverage. (4) Generalized weakness Current visit: Yes Status: Acute Patient presents with acute and generalized weakness related to current symptoms of N/V/fever/small bowel obstruction. Patient placed as falls precautions/up with assist/bed rest with bed side commode with assist only due to weakness and pain. (5) SBO (small bowel obstruction) Current visit: Yes Status: Acute Patient presents with history of chronic small bowel obstructions and current symptoms of new SBO 5 days post-ileostomy. Surgical consult ordered and discussed with Dr. Arellano. NG tube placed with intermittent suctioning ordered. Patient to be NPO. Will continue IV fluids @ 100 mL/HR. IV ciprofloxacin and IV flagyl ordered for infection coverage. Rectal enemas ordered for rectal evacuation. (6) Abdominal pain Current visit: Yes Status: Acute Patient presents with acute abdominal pain related to current small bowel obstruction, nausea, and vomiting. IVP Protonix 40 mg daily and IVP phenergan PRN ordered. Patient placed as NPO. Qualifiers: Abdominal location: generalized Qualified Code(s): R10.84 - Generalized abdominal pain (7) Constipation Current visit: Yes Status: Chronic Patient presents with acute constipation and rectal blockage. Rectal enemas for evacuation ordered. Qualifiers: Constipation type: unspecified constipation type Qualified Code(s): K59.00 - Constipation, unspecified (8) Anxiety Current visit: Yes Status: Chronic Patient presents with history of chronic anxiety and depression. Will continue patient's Ativan PRN. (9) GERD (gastroesophageal reflux disease) Current visit: Yes Status: Chronic Patient presents with history of GERD. Will administer IVP Protonix 40 mg daily. Qualifiers: Esophagitis presence: esophagitis presence not specified Qualified Code(s) : K21.9 - Gastro-esophageal reflux disease without esophagitis (10) DVT prophylaxis Current visit: Yes Status: Acute Patient to be placed on DVT prophylaxis due to admission protocol and current bed rest status. Due to possible need for surgical intervention, mechanical prophylaxis will be used with placement of bilateral SCDs on patient's LEs. Internal Medicine - H&P: HPI Chief complaint: N/V Admitted From: Emergency Dept Plans for Post Hospital Care: Home History of present illness: Ms. Gracia is a 31 year old female who presents from the ED with chief complaint of nausea and vomiting. She reports being unable to keep anything down for the past 2-3 days. Patient is 5 days post loop ileostomy with worsening abdominal pain, fever, and chills. She states she also had a previous procedure done 3 months ago as well. She denies headache, vision changes, unusual bleeding, pre- sycope, or syncope. Patient has history of chronic bowel obstructions and states she has had GI issue since she was a child. Patient states she has a poor fitting ileostomy bag due to adhesion over suture debbie. Ileostomy bag opened and covered her surgical site. Patient currently has pallor and abdominal tenderness. Initial CT scan without contrast shows evidence of small bowel obstruction with transition site at the ileostomy. CT with oral contrast was attempted but patient was unable to keep oral contrast down. Patient was found to be C. diff positive. NG tube placed and surgery consult with Dr. Arellano ordered in ED. Patient's WBCs on admission are 16.0 and patient became tachycardic with heart rate 140s and temperature of 102.3 F. Patient currently meets SIRS criteria. Patient's medical history includes migraines and she reports she is an every day smoker smoking 2-3 cigarettes per day. Patient is at high risk for sepsis based on current criteria, small bowel obstruction, dehydration, and possible electrolyte imbalance and will be placed as inpatient status with orders for IV ciprofloxacin and Flagyl. Due to patient's current tachycardia, she will be placed on continuous cardiac telemetry and supplemental O2 with follow-up labs to monitor WBCs and electrolytes. IV fluids administered in ED and will be continued @ 100 mL/HR. Patient to be kept NPO. Patient is to be monitored closely for signs of increasing infection, cardiac and/or respiratory distress. Time spent with patient > 40 minutes. Past Med Surg Social Fam HX - Past Medical History Source: patient Medical history: migraine, other (Small bowel obstructions) Psychiatric history: anxiety, depression - Past Surgical History Surgical History: appendectomy, cholecystectomy - Social History Smoking Status: Current every day smoker Packs per day: 2-3 cigarettes a day Smokeless Tobacco Status: No Alcohol use: none Drug use: none Current living situation: Home Activity Level: Independent ambulation Recent Out of Country Travel Within the Last 8 Weeks: No Exposure or Possible Exposure to Illness During Travel: No - Family History Mother Race: Family Member Ethnicity: Non- Living Status: Still Living Father Race: Family Member Ethnicity: Non- Living Status: Still Living Internal Medicine - H&P: Meds ALPRAZolam [Xanax 1 MG Tablet] 1 mg PO TID PRN 08/27/16 [History] Sertraline [Zoloft] 50 mg PO DAILY 08/27/16 [History] Ibuprofen [Motrin] 800 mg PO Q8HR #50 tablet 12/25/16 [Rx] Allergies doxycycline Adverse Reaction (Verified 12/18/16 08:19) Vomiting ketorolac [From Toradol] Adverse Reaction (Verified 12/18/16 08:19) makes her restless All Systems PM: A 10-system review of systems was performed and is negative for pertinent findings except as documented above in the HPI. - Constitutional Constitutional: as per HPI, chills, fatigue, fever(s), weakness - EENT Eyes: no change in vision, no discharge, no pain, no photophobia Ears: no ear discharge, no ear pain, no tinnitus Nose, mouth and throat: no dysphagia, no nasal discharge, no neck pain, no sore throat - Breasts Breasts: as per HPI - Cardiovascular Cardiovascular ROS IM: no chest pain, no diaphoresis, no dyspnea, no lightheadedness, no palpitations, no syncope - Respiratory Respiratory: no cough, no dyspnea, no wheezing, no excessive phlegm production - Gastrointestinal Gastrointestinal: as per HPI, abdominal pain, constipation, other (Small bowel obstruction) - Genitourinary Genitourinary: no change in urinary stream, no dysuria, no flank pain, no hematuria Menstruation: as per HPI - Musculoskeletal Musculoskeletal ROS IM: no numbness, no tingling - Integumentary Integumentary IM: no rash, no unusual bruising - Neurological Neurological ROS: no confusion, no convulsions, no focal weakness, no numbness, no tingling, no tremor(s) - Psychiatric Psychiatric: as per HPI, anxiety, depression - Endocrine Endocrine IM: as per HPI - Hematologic/Lymphatic Hematologic/Lymphatic: no easy bruising - Allergic/Immunologic Allergic/Immunologic: as per HPI - Constitutional Vitals: Temp Pulse Resp BP Pulse Ox 102.3 F H 131 24 108/65 99 12/29/16 10:59 12/29/16 11:58 12/29/16 12:35 12/29/16 12:35 12/29/16 11:58 General appearance: Present: cooperative, disheveled, A&O X 3, severe distress, answers questions appropriately - Head Head exam: Present: atraumatic, normocephalic - Eye Eye exam: Present: PERRL, conjuntiva pink, sclera anicteric Pupils: Present: PERRL - ENT ENT exam: Present: normal exam, normal external ear exam - Neck Neck exam general surgery: Present: normal inspection, supple, trachea midline. Absent: lymphadenopathy - Cardiovascular Cardiovascular exam: Present: tachycardia - GI/Abdominal GI/Abdominal exam: Present: diminished bowel sounds, guarding, soft, tenderness - Rectal Rectal exam: Present: deferred - Additional comments: exam deferred. - Extremities Exam Extremities exam: Present: warm, radial pulses palpable and symetrical. Absent : calf tenderness, cyanotic, pedal edema - Back Exam Back exam: Present: normal inspection - Neurological Exam Neurological exam: Present: CN II-XII intact, oriented X3, no focal deficits. Absent: pronater drift, facial droop, speech deficit - Psychiatric Psychiatric exam: Present: anxious, flat affect - Skin Skin exam: Present: dry, intact Internal Med - H&P Results - Labs CBC & Chem 7: 12/29/16 04:09 12/29/16 04:09 - EKG Data EKG shows normal: sinus rhythm Rate: tachycardia - EKG Data Prior EKG available for review: no When compared to previous EKG: there is no significant change EKG comments: 12/29/16 13:07 EKG dated 12/29/16 shows sinus tachycardia with nonspecific ST and T-wave abnormality. - Diagnostic Studies CT scan - abdomen Additional comments: Impressions Abdomen/Pelvis CT 12/29/16 05:05 IMPRESSION: 1. Small bowel obstruction. Transition point appears to be at the patient's ileostomy. 2. Stercoral proctitis again suggested. There has been a slight decrease in the volume of stool in the rectosigmoid colon. D/ / James Donnelly MD / James Donnelly MD Interpreting Provider: James Donnelly MD <Harsh Boss - Last Filed: 12/29/16 14:49> Date of Encounter: 12/29/16 Internal Medicine - H&P: HPI History of present illness: Ms. Gracia is a 31 year old female All Systems PM: A 10-system review of systems was performed and is negative for pertinent findings except as documented above in the HPI. - Constitutional Vitals: Temp Pulse Resp BP Pulse Ox 103.6 F H 169 22 113/61 99 12/29/16 13:49 12/29/16 13:49 12/29/16 13:49 12/29/16 13:49 12/29/16 13:49 Internal Med - H&P Results - Labs CBC & Chem 7: 12/29/16 04:09 12/29/16 04:09 - Attending Attestation I examined this patient and my medical decision-making was reviewed with the HOME BUILDER.. I agree with the documented findings, disposition and treatment plan as described except to the extent set forth below. 31 y/o with extensive abdominal surgical history presented today with abdominal pain and vomiting x1 day. CT abd shows SBO,has leucocytosis and fever tmax of 104, tachycardic HR 160s. c. diff toxin came out positive in serology though patient denies any loose stool from ileostomy. surgery has been consulted, ct with oral contrast was attempted however patient could not tolerate alayna contrast. being admitted for SBO, meets sepsis criteria and is severely dehydrated, lactate <2. will start zosyn and IV flagyl, keep NPO, NGT on contiuous suction. rectal tylenol, cooling blanket, IVF at 150, rivera to monitor urine output. will hold the cardizem drip as the tachycardia is sinus and is primarily driven 2/2 sepsis with severe dehydration,will treat the primary cause, lopressor 5mg IV prn for HR>170. rectal enema has been ordered as per surgery. will follow any further surgical recommendations. treatment plan has been discussed with the patient and the family and they agree with the plan
[2016-12-29] MEDS ORDERED: Acetaminophen 650 MG RECTAL SUPP RC PRN (13:39)
[2016-12-29] MEDS ORDERED: Metoclopramide 10 MG/2 ML VIAL IVP SCH (13:42)
[2016-12-29] MEDS ORDERED: *HR* Heparin 5,000 UNIT/ML VIAL SQ SCH (14:00)
[2016-12-29] MEDS ORDERED: *HR* Metoprolol 5 MG/5 ML VIAL IVP ONE ×2 (14:05→14:07)
[2016-12-29] MEDS ORDERED: Metoclopramide 10 MG/2 ML VIAL IVP PRN (14:41)
[2016-12-29] MEDS ORDERED: Acetaminophen IV 1,000 MG/100 ML INFUS..BTL IVPB ONE (14:55)
[2016-12-29] MEDS ORDERED: *HR* Metoprolol 5 MG/5 ML VIAL IVP PRN (14:56)
[2016-12-29] MEDS ORDERED: *HR* Promethazine 25 MG/ML VIAL IVP SCH (15:00)
--- NOTE | 2016-12-29 15:15 | General Surgery Consult Note ---
<Ary Gilbert - Last Filed: 12/29/16 17:12> Date of Encounter: 12/29/16 Time of Encounter: 14:30 Assessment and Plan (1) Abdominal pain Current Visit: Yes Status: Acute Ileus likely given abdominal distention and vomiting Pulled NG back as pt had no output. Immediately return of aprox 400 ml yellow material. Pt stated feeling of improvement. Continue supportive care, discomfort control, and antiemetics Added IV Tyleonol for fever x1 dose. May repeat in 6 hours if needed NPO Qualifiers: Abdominal location: generalized Qualified Code(s): R10.84 - Generalized abdominal pain (2) S/P ileostomy Current Visit: Yes Status: Acute Continue to monitor output and supportive care per plan above (3) Sepsis Current Visit: Yes Status: Acute Management per Medicine. Will continue to follow along and evaluate for the indications. Qualifiers: Sepsis type: sepsis due to unspecified organism Qualified Code(s): A41.9 - Sepsis, unspecified organism History of Present Illness Consult date: 12/29/16 Reason for consult: other (Vomiting) Requesting physician: Leonid Valencia (Ananya Arellano) History of present illness: Penny is a 31 year old female who presented to the emergency department with complaints of fever, nausea, and vomiting for 3 days. She denies alleviating or aggravating factors. T-max of 102 at home and she reports vomiting stool. She reports output in her ostomy had not changed or stopped. She denies CP or SOB. She endorses abdominal bloating and distention. She was recently discharged (Wednesday12/25/2016) following an exploratory laparotomy and diverting loop ileostomy and fecal disimpaction. She was recommended to complete milk of molasses enemas during her recent admission, in a n effort to remove retained fecal material i nthe sigmoid colon, but she refused those treatments. She reported some nausea prior to leaving the hospital , but was tolerating liquids. She was recommended to have home health, but she refused stating that she and her mother would be able to care for her ostomy. She was recommended to follow-up at that [facility] after d/c for the possibility of J-pouch. A CT was completed in the ED which showed some dilated loops of small bowel and retained fecal material as previously noted (detailed in results). A c-diff study was compelted and indicated positive results although the source of specimen (ileostomy vs rectal fecal material) is unknown. She was started on IV cipro and flagyl. Blood and urine cultures were also obtained and not resulted at this time. Past Med Surg Social Fam HX - Past Medical History Source: patient (constipation) Medical history: migraine Psychiatric history: anxiety, depression - Past Surgical History Surgical History: appendectomy, cholecystectomy, other (diverting ileostomy and fecal disimpaction) - Social History Smoking Status: Current every day smoker Packs per day: 2-3 cigarettes a day Smokeless Tobacco Status: No Alcohol use: none Drug use: none - Family History Mother Race: Family Member Ethnicity: Non- Living Status: Still Living Father Race: Family Member Ethnicity: Non- Living Status: Still Living Medications and Allergies ALPRAZolam [Xanax 1 MG Tablet] 1 mg PO TID PRN 08/27/16 [History] Sertraline [Zoloft] 50 mg PO DAILY 08/27/16 [History] Ibuprofen [Motrin] 800 mg PO Q8HR #50 tablet 12/25/16 [Rx] Allergies doxycycline Adverse Reaction (Verified 12/18/16 08:19) Vomiting ketorolac [From Toradol] Adverse Reaction (Verified 12/18/16 08:19) makes her restless Review of Systems All systems PM: reviewed and no additional remarkable complaints except as stated (as per HPI) All systems PM: A 10-system review of systems was performed and is negative for pertinent findings except as documented above in the HPI. General Surgery Exam Initial Vital Signs Temp Pulse Resp BP Pulse Ox 98.1 F 118 18 108/73 100 12/29/16 01:16 12/29/16 01:16 12/29/16 01:16 12/29/16 01:16 12/29/16 01:16 - General physical appearance moderate distress, moderate pain, other (Pale and ill appearing) - Eyes normal ocular movement - ENT dry mucosa, atraumatic, normocephalic - Neck trachea midline - Respiratory normal expansion, normal respiratory effort, clear to auscultation - Cardiovascular Additional Comments: Tachycardia. Normal heart tones. - Abdomen Abdomen general surgery: Present: bowel sounds present (ABSENT bowel sounds), distended, tender, wound (Stoma is pink and moist. No output in ostomy bag. Pt states it was just changed) - Incision Incision: Present: clean and dry, intact - Genitourinary Present: other (Keith catheter noted) - Integumentary Integumentary general surgery: Present: warm and dry - Neurologic Present: CN 2-12 grossly intact - Musculoskeletal Present: other (Guarding posture) - Psychiatric Psychiatric general surgery: Present: A&Ox3 Exam Initial Vital Signs Temp Pulse Resp BP Pulse Ox 98.1 F 118 18 108/73 100 12/29/16 01:16 12/29/16 01:16 12/29/16 01:16 12/29/16 01:16 12/29/16 01:16 Results - Labs 12/29/16 04:09 12/29/16 04:09 Abnormal lab results WBC 16.0 K/mcL (4.3-11.1) H D 12/29/16 04:09 MCH 26.6 pg (28.0-33.3) L 12/29/16 04:09 MCHC 30.7 g/dL (31.6-35.5) L 12/29/16 04:09 RDW 15.0 % (11.5-14.5) H 12/29/16 04:09 Plt Count 725 K/mcL (140-400) H D 12/29/16 04:09 MPV 8.6 fL (9.4-12.4) L 12/29/16 04:09 Neutrophils # 13.8 K/mcL (1.6-8.9) H 12/29/16 04:09 Potassium 3.4 mEq/L (3.5-4.5) L 12/29/16 04:09 Glucose 194 mg/dL (70-99) H 12/29/16 04:09 Lactic Acid 3.8 mmol/L (0.5-2.2) H 12/29/16 14:12 Urine Clarity Cloudy (Clear) A 12/29/16 09:03 Ur Specific E[place]ace > 1.030 (1.010-1.025) H 12/29/16 09:03 Urine Glucose (UA) 250 mg/dL (Normal) H 12/29/16 09:03 Urine Ketones 15 mg/dL (Negative) H 12/29/16 09:03 Urine Bilirubin Small (Negative) H 12/29/16 09:03 Urine Microscopic RBC 3-5 per hpf (0-3) H 12/29/16 09:03 Urine Microscopic WBC 5-15 per hpf (0-3) H 12/29/16 09:03 Ur Squamous Epith Cells Many per lpf (None-Few) H 12/29/16 09:03 Ur Culture Indicated? YES (NO) A 12/29/16 09:03 Stl C. diff Tox A/B PCR See reflex test (Not detect) A 12/29/16 04:13 All other labs normal. - Imaging Additional studies: Abdomen/Pelvis CT 12/29/16 05:05 IMPRESSION: 1. Small bowel obstruction. Transition point appears to be at the patient's ileostomy. 2. Stercoral proctitis again suggested. There has been a slight decrease in the volume of stool in the rectosigmoid colon. D/ / James Donnelly MD / James Donnelly MD Interpreting Provider: James Donnelly MD X-Ray 12/29/16 12:33 IMPRESSION: The tip of the NG tube is at the pylorus of the side holes are in the antrum of the stomach. D/ / Elliot Dejesus MD / Elliot Dejesus MD Interpreting Provider: Elliot Dejesus MD Consult Discharge Plan - Plan Referrals: NONE,PCP [Primary Care Provider] - <Uzair Arellano E - Last Filed: 12/29/16 22:48> Date of Encounter: 12/29/16 Assessment and Plan (1) Megacolon Current Visit: No Status: Acute Patient was seen and examined and also discussed with Dr. Padilla. Patient has continued to have increasing tachycardia and now new onset of hypotension since earlier today. When evaluating her vital signs, abdominal exam, and laboratory data I am unsure of the source for her sepsis. He did have a discussion with accepting surgeon at [facility] for second opinion and transferred to the surgical ICU. 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 The stool burden within the rectum could be a source however this is something is been present for several years. At this point we believe the safest thing is for transfer to [facility] stay for second opinion. She may require laparotomy with completion colectomy and end ileostomy. I have explained all this to the patient. And she understands. Review of Systems All systems PM: A 10-system review of systems was performed and is negative for pertinent findings except as documented above in the HPI. General Surgery Exam Initial Vital Signs Temp Pulse Resp BP Pulse Ox 98.1 F 118 18 108/73 100 12/29/16 01:16 12/29/16 01:16 12/29/16 01:16 12/29/16 01:16 12/29/16 01:16 Exam Initial Vital Signs Temp Pulse Resp BP Pulse Ox 98.1 F 118 18 108/73 100 12/29/16 01:16 12/29/16 01:16 12/29/16 01:16 12/29/16 01:16 12/29/16 01:16 Results - Labs 12/29/16 04:09 12/29/16 04:09 Abnormal lab results WBC 16.0 K/mcL (4.3-11.1) H D 12/29/16 04:09 MCH 26.6 pg (28.0-33.3) L 12/29/16 04:09 MCHC 30.7 g/dL (31.6-35.5) L 12/29/16 04:09 RDW 15.0 % (11.5-14.5) H 12/29/16 04:09 Plt Count 725 K/mcL (140-400) H D 12/29/16 04:09 MPV 8.6 fL (9.4-12.4) L 12/29/16 04:09 Neutrophils # 13.8 K/mcL (1.6-8.9) H 12/29/16 04:09 ABG pCO2 20 mmHg (35-45) L* 12/29/16 22:09 ABG pO2 83 mmHg (85-104) L 12/29/16 22:09 ABG HCO3 12.4 mEQ/L (21-27) L 12/29/16 22:09 ABG Total CO2 13.0 mEq/L (20-26) L 12/29/16 22:09 ABG Base Excess -10.9 mEq/L (-2.0 to 3.0) L 12/29/16 22:09 Potassium 3.4 mEq/L (3.5-4.5) L 12/29/16 04:09 Glucose 194 mg/dL (70-99) H 12/29/16 04:09 POC Glucose 102 (58-89) H 12/29/16 22:30 Lactic Acid 7.9 mmol/L (0.5-2.2) H* 12/29/16 19:15 Urine Clarity Cloudy (Clear) A 12/29/16 09:03 Ur Specific E[place]ace > 1.030 (1.010-1.025) H 12/29/16 09:03 Urine Glucose (UA) 250 mg/dL (Normal) H 12/29/16 09:03 Urine Ketones 15 mg/dL (Negative) H 12/29/16 09:03 Urine Bilirubin Small (Negative) H 12/29/16 09:03 Urine Microscopic RBC 3-5 per hpf (0-3) H 12/29/16 09:03 Urine Microscopic WBC 5-15 per hpf (0-3) H 12/29/16 09:03 Ur Squamous Epith Cells Many per lpf (None-Few) H 12/29/16 09:03 Ur Culture Indicated? YES (NO) A 12/29/16 09:03 Stl C. diff Tox A/B PCR See reflex test (Not detect) A 12/29/16 04:13 Urine Opiates Screen Positive ng/mL (Hurjdv=162) H 12/29/16 21:52 U Benzodiazepines Scrn Positive ng/mL (Egipcm=901) H 12/29/16 21:52 Urine Cocaine Screen Positive ng/mL (Cutoff= 300) H 12/29/16 21:52 All other labs normal.
[2016-12-29] MEDS: Piperacillin/Tazobactam 3.375 GM in D5% in Water (Mini-Bag+) 100 ML IVPB SCH ×2 (15:23→23:59)
[2016-12-29] MEDS: Ondansetron 4 MG/2 ML VIAL IVP SCH ×2 (15:30→19:49)
[2016-12-29] MEDS: *HR* HYDROmorphone (PF) 1 MG/ML SYRINGE IVP PRN ×2 (15:38→19:53)
[2016-12-29] MEDS ORDERED: *HR* LORazepam 2 MG/ML VIAL IVP PRN ×2 (15:47→22:57)
--- NOTE | 2016-12-29 16:04 | Electrocardiograph Report ---
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
--- NOTE | 2016-12-29 16:06 | Electrocardiograph Report ---
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
[2016-12-29] MEDS ORDERED: Insulin LISPRO 300 UNITS/3 ML VIAL SQ SCH ×3 (16:30→21:00)
[2016-12-29] MEDS: Milk and Molasses Enema 200 ML RC SCH ×2 (17:08→20:01)
[2016-12-29] MEDS ORDERED: MetroNIDAZOLE 500 MG/100 ML 500 MG/100 ML BAG IVPB SCH (20:00)
[2016-12-29] MEDS: 0.9 % Sodium Chloride 1,000 ML IVC SCH ×2 (20:25→21:43)
[2016-12-29] MEDS ORDERED: Acetaminophen IV 1,000 MG/100 ML INFUS..BTL IVPB SCH (21:15)
--- NOTE | 2016-12-29 22:02 | Event Note ---
Date of Encounter: 12/29/16 Time of Encounter: 21:59 I was called with a critical result of lactic acid of 7.9. I evaluated the patient at the bedside. Patient was admitted earlier today with suspicion of small bowel obstruction, sepsis and C. difficile infection. She was started on treatment with IV antibiotics including Zosyn and Flagyl and IV fluids. She was evaluated by general surgery earlier today. On my exam the patient is an ill-appearing young lady awake and oriented, complaining that she is freezing. She also reports abdominal pain in the lower abdomen. Heart exam reveals tachycardic and regular S1-S2, no murmurs rubs or gallops Lungs are generally clear to auscultation bilaterally Abdomen is distended and tense to palpation, not rigid. Percussion elicits sharp abdominal pain. There is an ileostomy bag present with minimal output of clear fluid. Extremities with no edema clubbing or cyanosis Skin with no rashes no open wounds appears pale and flushed. Laboratory data reveals white blood cell count of 16,000, lactic acid of 7.9 from 3.8 previously and 1.7 earlier today on admission.creatinine is 0.75. Assessment: Septic shock secondary to intra-abdominal infection, possibly overwhelming C. difficile infection versus gram-negative rods sepsis Plan: I have ordered 2 L of IV fluid bolus 30 mL per KG. We will continue broad spectrum IV antibiotic coverage to cover gram-negative rods and C. difficile including Zosyn and Flagyl. I have reordered lab work including CBC, CMP, lactic acid and ABG. As a critical part of management of septic shock we need to achieve source control. I have discussed the plan with the surgeon provider relations specialist Dr. Arellano who will come in to evaluate the patient. We will transfer the patient to the intensive care unit for closer monitoring and treatment.
[2016-12-29 22:20] LABS: ABG Base Excess -10.9 mEq/L (-2.0 to 3.0); ABG HCO3 12.4 mEQ/L (21-27); ABG Oxygen Saturation 96 % (95-98); ABG PO2 83 mmHg (85-104)
[2016-12-29 22:22] LABS: ABG PCO2 20 mmHg (35-45); Blood Gas FiO2 21 %
[2016-12-29] MEDS ORDERED: 0.9 % Sodium Chloride 500 ML ONE (22:33)
[2016-12-29 22:37] LABS: Amphetamine Screen,Urine Negative ng/mL (Cutoff=1000); Barbiturate Screen,Urine Negative ng/mL (Cutoff=200); Benzodiazepines Screen,Urine Positive ng/mL (Cutoff=200); Cannabinoid Screen,Urine Negative ng/mL (Cutoff = 50); Cocaine Screen,Urine Positive ng/mL (Cutoff= 300); Opiate Screen,Urine Positive ng/mL (Cutoff=300); Phencyclidine Screen,Urine Negative ng/mL (Cutoff=25)
[2016-12-29 22:44] LABS: Hematocrit 31.8 % (35.3-44.9); Hemoglobin 9.5 g/dL (11.5-15.4); Mean Corpuscular HGB Conc 29.9 g/dL (31.6-35.5); Mean Corpuscular Hemoglobin 26.5 pg (28.0-33.3); Mean Corpuscular Volume 88.8 fL (83.0-100.0); Platelet Count 435 K/mcL (140-400); Red Blood Count 3.58 M/mcL (3.82-4.97); Red Cell Distribution Width 15.3 % (11.5-14.5)
[2016-12-29] MEDS ORDERED: *HR* HYDROmorphone (PF) 1 MG/ML SYRINGE IVP PRN (22:57)
[2016-12-29] MEDS ORDERED: Ondansetron 4 MG/2 ML VIAL IVP SCH (23:00)
[2016-12-29 23:20] LABS: Lymphocytes # 1.7 K/mcL (0.6-4.6); Monocytes # 0.3 K/mcL (0.0-1.3)
[2016-12-29 23:23] LABS: Alanine Aminotransferase < 6 Units/L (0-55); Albumin/Globulin Ratio 0.9 (1.1-2.2); Alkaline Phosphatase 35 Units/L (38-126); Aspartate Amino Transferase 8 Units/L (5-34); BUN/Creatinine Ratio 20 (6-26); Bilirubin,Total 0.3 mg/dL (0.2-1.2); Blood Urea Nitrogen 15 mg/dL (7-20); Calcium 6.8 mg/dL (8.6-10.8); Chloride 116 mEq/L (98-109); Globulin 2.3 g/dL (2.4-3.5); Glucose 110 mg/dL (70-99); Osmolality,Calculated 295 (280-300); Potassium 2.8 mEq/L (3.5-4.5); Sodium 142 mEq/L (136-145); Total Protein 4.3 g/dL (6.0-8.3); eGFR For African Americans > 60 (> 60); eGFR For Non-African Americans > 60 (> 60)
[2016-12-29 23:24] LABS: Carbon Dioxide 10 mEq/L (19-29); Neutrophils # 1.9 K/mcL (1.6-8.9)
[2016-12-29] MEDS ORDERED: Potassium Chloride 40 MEQ/200 ML BAG IVPB ONE (23:32)
[2016-12-29] MEDS ORDERED: Ondansetron 4 MG/2 ML VIAL ONE (23:33)
[2016-12-30] MEDS ORDERED: Insulin LISPRO 300 UNITS/3 ML VIAL SQ SCH
[2016-12-30 00:06] VITALS: BP 83/52
[2016-12-30] MEDS ORDERED: Magnesium Sulfate 2 GM in D5% in Water 100 ML IVPB ONE (00:16)
[2016-12-30] MEDS ORDERED: 0.9 % Sodium Chloride 1,000 ML ONE (00:48)
[2016-12-30] MEDS ORDERED: *HR* Norepinephrine 4 MG/4 ML VIAL IVC ONE (00:53)
[2016-12-30] MEDS ORDERED: D5% in Water 250 ML ONE (00:53)
--- NOTE | 2016-12-30 01:39 | Event Note ---
Date of Encounter: 12/30/16 Time of Encounter: 01:00 Patient's condition continued to worsen this evening. Blood pressure deteriorated and her lactic acid level increased in spite of aggressive fluid restriction and treatment with IV antibiotics. On reexamination vital signs reveal a pressure of 87/47, heart rate 147, oxygen saturation 97%, respiratory rate 40. patient appears ill and pale. She is awake alert oriented 3. Heart is tachycardic and regular, lungs generally clear Abdomen is distended, firm to palpation, diffusely tender there is no guarding, positive rebound. Intra-abdominal pressure measured through a Keith probe was 37 cm of water Laboratory data: Potassium 2.8, magnesium 1.0, lactic acid 10.7. ABG reveals a pH of 7.40, PCO2 of 20. I have reviewed the imaging studies from the earlier CAT scan of the abdomen which reveals distended small bowel loops consistent with ileus or SBO. Distended colon filled with fecal matter. Assessment and plan: Septic shock secondary to intra-abdominal source, possible bowel ischemia, possible abdominal compartment syndrome and small bowel obstruction Plan: I will continue with IV fluids, IV antibiotics Zosyn and Flagyl. I will repeat electrolytes with 40 mEq of potassium chloride and 2 g of magnesium sulfate. Blood pressure continued to deteriorate and therefore I started Levophed through an intraosseous line. I have discussed the case with Dr. Arellano, the surgeon health occupations teacher who recommends transfer to [facility] for further emergent evaluation and treatment. I have continued to reevaluate and treat the patient aggressively with fluids pressors and antibiotics up until the transfer team arrived and during the preparations for transfer. The patient remained in a critical condition but she was awake and oriented throughout. The high probability of a clinically significant, sudden and life threatening deterioration of the cardiovascular and respiratory systems required my full and direct attention, intervention and personal management. The critical care performed took 45 minutes which involved decision-making of high complexity to assess and manipulate organ and system function. During the critical care time quoted above I was directly available to the patient and was involved in direct patient care, patient reassessment, coordination of patient care, interpretation of data (laboratory data, radiology data, and respiratory data), review of patient's medical records, medical consultation with the general surgeon and documentation of patient care.
[2016-12-30] MEDS ORDERED: Acetaminophen IV 1,000 MG/100 ML INFUS..BTL IVPB SCH (03:15)
[2016-12-30] MEDS ORDERED: MetroNIDAZOLE 500 MG/100 ML 500 MG/100 ML BAG IVPB SCH (04:00)
[2016-12-30] MEDS ORDERED: Piperacillin/Tazobactam 3.375 GM in D5% in Water (Mini-Bag+) 100 ML IVPB SCH (06:00)
[2016-12-30] MEDS ORDERED: Pantoprazole 40 MG VIAL IVP SCH (09:00)
[2016-12-30] MEDS ORDERED: Bisacodyl 10 MG RECTAL SUPPOSITORY RC SCH (18:00)
--- NOTE | 2017-01-05 09:55 | Discharge Summary ---
Date of Encounter: 12/30/16 Time of Encounter: 01:00 - Discharge Diagnosis (1) Small bowel obstruction Priority: Primary Status: Acute (2) Abdominal pain Priority: Secondary Status: Acute Qualifiers: Abdominal location: generalized Qualified Code(s): R10.84 - Generalized abdominal pain (3) Hypokalemia Priority: Secondary Status: Acute (4) Intractable nausea and vomiting Priority: Secondary Status: Acute Qualifiers: Vomiting type: cyclical vomiting Qualified Code(s): G43.A1 - Cyclical vomiting, intractable (5) Megacolon Priority: Secondary Status: Acute (6) Sepsis Priority: Secondary Status: Acute Qualifiers: Sepsis type: sepsis due to unspecified organism Qualified Code(s): A41.9 - Sepsis, unspecified organism - Discharge Medications Home Medications: ALPRAZolam [Xanax 1 MG Tablet] 1 mg PO TID PRN 08/27/16 [History] Sertraline [Zoloft] 50 mg PO DAILY 08/27/16 [History] Ibuprofen [Motrin] 800 mg PO Q8HR #50 tablet 12/25/16 [Rx] Allergies/Adverse Reactions: Allergies doxycycline Adverse Reaction (Verified 12/18/16 08:19) Vomiting ketorolac [From Toradol] Adverse Reaction (Verified 12/18/16 08:19) makes her restless Date of admission: 12/29/16 13:47 Primary care physician: PCP NONE - Patient Status Disposition: Transfer Critical Access Hosp Condition: Serious Overall status at discharge: patient is not back to baseline - Discharge Instructions Follow Up With: NONE,PCP [Primary Care Provider] - - Diet and Activity Activity: other (Bedrest) Diet: other (Nothing by mouth) Hospital course: Ms. Gracia is a 31 year old female with history of megacolon and recent history of ileostomy who presented to the hospital for abdominal pain. She was diagnosed with small bowel obstruction and sepsis and treated aggressively with IV fluids and IV antibiotics. General surgery was consulted. I discussed the case in detail with Dr. Arellano at the bedside. He expressed his concern that an emergent surgical intervention at this time would carry tremendous risk. He suggested transferring her to a tertiary care facility and he contacted the general surgeon on-call at [facility] who accepted the patient to his care. During the process of transferring the patient she became hypotensive in spite of aggressive IV fluid hydration. He started an intraosseous line and initiated pressor treatment with IV norepinephrine. The patient was airlifted in a critical condition to [facility]. I discussed the case with the accepting physician Dr. Chano Acosta. - Time Spent with Patient Total time spent providing and/or coordinating discharge services: Greater than 30 minutes - Constitutional Vitals: Temp Pulse Resp BP Pulse Ox 98 F 147 36 83/52 96 12/30/16 00:00 12/30/16 00:00 12/30/16 00:00 12/30/16 00:00 12/30/16 00:00 General appearance: Present: A&O X 3, severe distress, answers questions appropriately - Respiratory Respiratory exam: Present: CTAB, tachypnea. Absent: accessory muscle use, rales , rhonchi, wheezes - Cardiovascular Cardiovascular exam: Present: +S1, +S2, tachycardia. Absent: diastolic murmur, gallop, rubs, systolic murmur - GI/Abdominal Additional comments: Distended and tender to palpation. Ileostomy site noted with no output. There is a median surgical incision appears to be healing well. No drainage portia- incisional erythema.
== END 2016-12-30 01:25 | disposition critical access hospital (66) | DRG 710 ==
LOC: 2NNU 00:41 → EMEROO 00:41 → 2NNU 13:20 → ICNU 22:49
PROVIDERS: ADMIT Internal Medicine; ATTEND Internal Medicine